=== PATIENT | male | born 1970 | race Caucasian/White ===

== ENCOUNTER 2017-07-14 20:04 | Emergency (ER) | payer OTHER ==
[2017-07-14] MEDS ORDERED: NA CHLORIDE 0.9% 1,000 ML ONE (20:57)
[2017-07-14] MEDS ORDERED: ONDANSETRON 4 MG/2 ML VIAL ONE (21:00)
[2017-07-14 21:11] LABS: Absolute Lymphocytes (CBC) 2.1 K/uL (0.7-4.9); Absolute Monocytes 0.8 K/uL (0.1-1.3); Absolute Neutrophil 9.6 K/uL (1.8-8.0); Basophils % 0.4 % (0-1.3); Eosinophils % 1.4 % (0-4.4); Hematocrit 41.1 % (39.6-49.0); Lymphocytes % 16.8 % (15.3-44.8); MCH 30.5 pg (27.0-35.0); MPV 8.2 fL (7.6-11.3); Monocytes % 6.3 % (3.3-12.3); Potassium 3.5 mEq/L (3.6-5.0); RBC Red Blood Cell Count 4.57 M/uL (4.33-5.43)
--- NOTE | 2017-07-14 22:47 | EDPHYS ---
Physician Documentation [facility] Name: Delmer Doan Age: 46 yrs Sex: Male : 1970 Arrival Date: 07/14/2017 Time: 20:06 Bed 13 Private MD: ED Physician Brijesh Taylor HPI: 07/14 20:38 This 46 yrs old Male presents to ER via Unassigned with complaints of snw diarrhea, nausea, lightheadedness. 20:38 The patient presents to the emergency department with nausea, diarrhea. Onset: The snw symptoms/episode began/occurred suddenly, today. Possible causes: hx of IBS, pt was at work and became nauseated, a little dizzy, + several episodes of diarrhea. Pt needed to sit and remained generally weak. Co-workers insisted he come to ED for eval. The symptoms are aggravated by nothing. Associated signs and symptoms: Pertinent positives: abdominal pain, diarrhea, nausea. Severity of symptoms: At their worst the symptoms were moderate. It is unknown whether or not the patient has had similar symptoms in the past. It is unknown whether or not the patient has recently seen a physician, Sees Dr. Rhodes. Historical: - Allergies: 20:45 No Known Allergies; ea - Home Meds: 20:45 Tylenol #3 Oral [Active]; Lovastatin Oral [Active]; Folic Acid Oral [Active]; ea - PMHx: 20:45 Hyperlipidemia; Arthritis; ea - Immunization history:: Adult Immunizations up to date. - Social history:: Smoking status: Patient uses tobacco products, smokes one-half pack cigarettes per day. ROS: 20:41 Eyes: Negative for injury, pain, redness, and discharge, ENT: Negative for injury, snw pain, and discharge, Neck: Negative for injury, pain, and swelling, Cardiovascular: Negative for chest pain, palpitations, and edema, Respiratory: Negative for shortness of breath, cough, wheezing, and pleuritic chest pain, Back: Negative for injury and pain, : Negative for injury, bleeding, discharge, and swelling, MS/Extremity: Negative for injury and deformity, Skin: Negative for injury, rash, and discoloration, Neuro: Negative for headache, weakness, numbness, tingling, and seizure. 20:41 Constitutional: Positive for body aches, fatigue, malaise, poor PO intake. 20:41 Abdomen/GI: Positive for abdominal pain, nausea, diarrhea. Exam: 20:41 Head/Face: Normocephalic, atraumatic. Eyes: Pupils equal round and reactive to light, snw extra-ocular motions intact. Lids and lashes normal. Conjunctiva and sclera are non-icteric and not injected. Cornea within normal limits. Periorbital areas with no swelling, redness, or edema. ENT: Nares patent. No nasal discharge, no septal abnormalities noted. Tympanic membranes are normal and external auditory canals are clear. Oropharynx with no redness, swelling, or masses, exudates, or evidence of obstruction, uvula midline. Mucous membranes moist. Neck: Trachea midline, no thyromegaly or masses palpated, and no cervical lymphadenopathy. Supple, full range of motion without nuchal rigidity, or vertebral point tenderness. No Meningismus. Chest/axilla: Normal chest wall appearance and motion. Nontender with no deformity. No lesions are appreciated. Cardiovascular: Regular rate and rhythm with a normal S1 and S2. No gallops, murmurs, or rubs. Normal PMI, no JVD. No pulse deficits. Respiratory: Lungs have equal breath sounds bilaterally, clear to auscultation and percussion. No rales, rhonchi or wheezes noted. No increased work of breathing, no retractions or nasal flaring. Back: No spinal tenderness. No costovertebral tenderness. Full range of motion. Skin: Warm, dry with normal turgor. Normal color with no rashes, no lesions, and no evidence of cellulitis. MS/ Extremity: Pulses equal, no cyanosis. Neurovascular intact. Full, normal range of motion. Neuro: Awake and alert, GCS 15, oriented to person, place, time, and situation. Cranial nerves II-XII grossly intact. Motor strength 5/5 in all extremities. Sensory grossly intact. Cerebellar exam normal. Normal gait. 20:41 Constitutional: The patient appears alert, anxious. 20:41 Abdomen/GI: Inspection: abdomen appears normal, Bowel sounds: hyperactive, Palpation: mild abdominal tenderness, in all quadrants. Vital Signs: 20:45 BP 126 / 89; Pulse 75; Resp 18; Temp 98(O); Pulse Ox 100% on R/A; Weight 106.59 kg; ea Height 6 ft. 2 in. (187.96 cm); Pain 0/10; 22:15 BP 122 / 76; Pulse 64; Resp 16; Pulse Ox 100% on R/A; jd3 22:30 Temp 98.2(O); ea 20:45 Body Mass Index 30.17 (106.59 kg, 187.96 cm) ea MDM: 20:18 Patient medically screened. snw 22:47 Data reviewed: vital signs, nurses notes. Data interpreted: Pulse oximetry: on room air snw is 100 %. Counseling: I had a detailed discussion with the patient and/or guardian regarding: the historical points, exam findings, and any diagnostic results supporting the discharge/admit diagnosis, lab results, the need for outpatient follow up, to return to the emergency department if symptoms worsen or persist or if there are any questions or concerns that arise at home. Special discussion: Based on the history and exam findings, there is no indication for further emergent testing or inpatient evaluation. I discussed with the patient/guardian the need to see the global technical writer for further evaluation of the symptoms. I discussed with the patient/guardian the need to see the primary care provider for further evaluation of the symptoms. 07/14 20:38 Order name: CBC with Diff; Complete Time: 21:20 snw 07/14 20:38 Order name: Chem 7; Complete Time: 21:14 snw Administered Medications: 20:45 Drug: NS 0.9% 1000 ml Route: IV; Rate: 1 bolus; Site: right antecubital; ea 22:35 Follow up: Response: No adverse reaction; IV Status: Completed infusion; IV Intake: ea 1000ml 20:45 Drug: Zofran 4 mg Route: IVP; Site: right antecubital; ea 22:35 Follow up: Response: No adverse reaction ea Disposition: 07/15 01:37 Co-signature as Attending Physician, Brijesh Taylor MD. pkl Disposition: 07/14/17 22:46 Discharged to Home. Impression: Volume depletion, unspecified, Diarrhea, unspecified. - Condition is Stable. - Discharge Instructions: Food Choices to Help Relieve Diarrhea, Adult, Dehydration, Adult, Diarrhea, Rehydration, Adult. - Prescriptions for Zofran 4 mg Oral Tablet - take 1 tablet by ORAL route every 6 hours As needed; 20 tablet. - Work release form, Medication Reconciliation Form, Thank You Letter, Antibiotic Education, Prescription Opioid Use form. - Follow up: Private Physician; When: 2 - 3 days; Reason: Recheck today's complaints, Continuance of care, Re-evaluation by your physician. Follow up: Emergency Department; When: As needed; Reason: Worsening of condition. Signatures: Dispatcher [employer] EDMS Brijesh Taylor MD MD pkl Therrien, Shelly, PREFORM PLATE MAKER-C PREFORM PLATE MAKER-Csnw Magui Nava, RN RN ea Corrections: (The following items were deleted from the chart) 07/14 22:59 22:46 07/14/2017 22:46 Discharged to Home. Impression: Volume depletion, unspecified; ea Diarrhea, unspecified. Condition is Stable. Forms are Medication Reconciliation Form, Thank You Letter, Antibiotic Education, Prescription Opioid Use. Follow up: Private Physician; When: 2 - 3 days; Reason: Recheck today's complaints, Continuance of care, Re-evaluation by your physician. Follow up: Emergency Department; When: As needed; Reason: Worsening of condition. snw
--- NOTE | 2017-07-14 22:47 | ER ---
Nurse's Notes [facility] Name: Delmer Doan Age: 46 yrs Sex: Male : 1970 Arrival Date: 07/14/2017 Time: 20:06 Bed 13 Private MD: Diagnosis: Volume depletion, unspecified;Diarrhea, unspecified Presentation: 07/14 20:15 Presenting complaint: EMS states: Pt reported he was working and started feeling spacey ea and dizzy. EMS noted blood pressure at 141/104. Transition of care: patient was not received from another setting of care. Onset of symptoms was July 14, 2017. Initial Sepsis Screen: Does the patient meet any 2 criteria? No. Patient's initial sepsis screen is negative. Does the patient have a suspected source of infection? No. Patient's initial sepsis screen is negative. Care prior to arrival: IV to left AC O2 at 2 L. 20:15 Method Of Arrival: EMS: [facility] ea 20:15 Acuity: ANITHA 3 ea Triage Assessment: 20:46 General: Appears in no apparent distress. Behavior is calm, cooperative, appropriate ea for age. Pain: Denies pain. EENT: No signs and/or symptoms were reported regarding the EENT system. Neuro: Level of Consciousness is awake, alert, obeys commands, Oriented to person, place, time, situation. Cardiovascular: Heart tones S1 S2 present Patient's skin is warm and dry. Historical: - Allergies: 20:45 No Known Allergies; ea - Home Meds: 20:45 Tylenol #3 Oral [Active]; Lovastatin Oral [Active]; Folic Acid Oral [Active]; ea - PMHx: 20:45 Hyperlipidemia; Arthritis; ea - Immunization history:: Adult Immunizations up to date. - Social history:: Smoking status: Patient uses tobacco products, smokes one-half pack cigarettes per day. Screenin:00 Abuse screen: Denies threats or abuse. Nutritional screening: No deficits noted. ea Tuberculosis screening: No symptoms or risk factors identified. Fall Risk None identified. Assessment: 21:21 Reassessment: Patient and/or family updated on plan of care and expected duration. Pain ea level reassessed. Patient is alert, oriented x 3, equal unlabored respirations, skin warm/dry/pink. 22:35 Reassessment: Patient and/or family updated on plan of care and expected duration. Pain ea level reassessed. Patient is alert, oriented x 3, equal unlabored respirations, skin warm/dry/pink. Patient states feeling better. Patient states symptoms have improved. 22:56 Reassessment: Patient and/or family updated on plan of care and expected duration. Pain ea level reassessed. Patient is alert, oriented x 3, equal unlabored respirations, skin warm/dry/pink. Discharge instructions given to patient, verbalized the understanding of instruction. Patient states feeling better. Patient states symptoms have improved. Vital Signs: 20:45 BP 126 / 89; Pulse 75; Resp 18; Temp 98(O); Pulse Ox 100% on R/A; Weight 106.59 kg; ea Height 6 ft. 2 in. (187.96 cm); Pain 0/10; 22:15 BP 122 / 76; Pulse 64; Resp 16; Pulse Ox 100% on R/A; jd3 22:30 Temp 98.2(O); ea 20:45 Body Mass Index 30.17 (106.59 kg, 187.96 cm) ea ED Course: 20:06 Patient arrived in ED. em1 20:10 Fiona Agarwal FNP-C [facility]. snw 20:11 Brijesh Taylor MD is Attending Physician. snw 20:36 Magui Nava, JAY JAY is Primary Nurse. ea 20:41 Triage completed. ea 20:45 Patient has correct armband on for positive identification. Bed in low position. Call ea light in reach. Side rails up X 1. 20:45 Arm band placed on right wrist. ea 22:57 No provider procedures requiring assistance completed. IV discontinued, intact, ea bleeding controlled, No redness/swelling at site. Pressure dressing applied. Administered Medications: 20:45 Drug: NS 0.9% 1000 ml Route: IV; Rate: 1 bolus; Site: right antecubital; ea 22:35 Follow up: Response: No adverse reaction; IV Status: Completed infusion; IV Intake: ea 1000ml 20:45 Drug: Zofran 4 mg Route: IVP; Site: right antecubital; ea 22:35 Follow up: Response: No adverse reaction ea Intake: 22:35 IV: 1000ml; Total: 1000ml. ea Outcome: 22:46 Discharge ordered by . snw 22:57 Discharged to home ambulatory, with family. ea 22:57 Condition: improved 22:57 Discharge instructions given to patient, Instructed on discharge instructions, follow up and referral plans. medication usage, Demonstrated understanding of instructions, follow-up care, medications, Prescriptions given X 1. 22:59 Patient left the ED. ea Signatures: Fiona Agarwal, STOCK HANGER-C STOCK HANGER-Csnw Jeff Ortega em1 Magui Nava RN RN ea Davies, Jonathon, RN RN jd3 Corrections: (The following items were deleted from the chart) 21:23 21:21 BP 126 / 89; Pulse 75bpm; Resp 18bpm; Pulse Ox 100% RA; Temp 98F Oral; 106.59 kg; ea Height 6 ft. 2 in.; BMI: 30.1; Pain 0/10; ea
== END 2017-07-14 22:59 | disposition home or self-care (01) ==
LOC: ER 20:04
DX: E86.9 Volume depletion, unspecified (principal); E78.5 Hyperlipidemia, unspecified; F17.210 Nicotine dependence, cigarettes, uncomplicated
CPT/HCPCS: 36415; 80048; 85025; 96361; 96374; 99283; J2405; J7030

== ENCOUNTER 2020-08-25 14:32 | Inpatient (IN) | payer OTHER ==
--- OUTSIDE RECORDS SUMMARY | 2020-08-25 14:35 | XMS REPORT | Continuity of Care Document ---
:1970 Author Organization [facility] t Address [address] [place] [address] [address] [place] [address] Care Team Providers Name Role Phone Carmelo FUNG Attending Clinician Eugene Buck DO Attending Clinician Doctor Unassigned, Name Attending Clinician Unavailable Shannen Carroll RN Attending Clinician Unavailable Pob1, Care Clinic Attending Clinician Unavailable Problems This patient has no known problems. Allergies, Adverse Reactions, Alerts This patient has no known allergies or adverse reactions. Medications This patient has no known medications. Procedures This patient has no known procedures. Encounters Start End Encounter Admission Attending Care Care Encounter Source Date/Time Date/Time Type Type Clinicians Facility Department ID 2020-08-22 2020-08-22 Saige Rhodes [facility]VAR[facility] [id number] 00:00:00 00:00:00 [facility] [id number] [place] [id number] Professio [phone] [place] [address] 2020-05-27 2020-05-27 Patient DANA Buck [id number] 00:00:00 00:00:00 Outreach [facility] [id number] Eugene [facility] [id number] PAVILLION [id number] [id number] 2020-03-26 2020-03-26 Saige Rhodes WVARIA [id number] 00:00:00 00:00:00 [facility] [id number] [place] [id number] Professio [phone] [place] [address] [address] 2020-03-02 2020-03-02 Refill Carmelo [facility] [id number] 00:00:00 00:00:00 [facility] [id number] [place] [id number] Professio [phone] [place] [address] [address] 2019-12-29 2019-12-29 Refill Carmelo [facility] [id number] 00:00:00 00:00:00 [facility] [id number] [place] [id number] Professio [phone] [place] [address] [address] 2019-12-05 2019-12-05 Refill Carmelo [facility] [id number] 00:00:00 00:00:00 [facility] [id number] [place] [id number] Professio [phone] [place] [address] [address] 2019-11-12 2019-11-12 Refill Doctor [facility] [id number] 00:00:00 00:00:00 Unassigned, Health [id number] [place] [id number] Professio [phone] [place] [address] [address] 2019-09-11 2019-09-11 Patient Carmelo [facility] [id number] 00:00:00 00:00:00 Secure Msg Deny Leonardo [id number] [place] [id number] Professio [phone] [address] 2019-09-05 2019-09-05 Patient Carmelo [facility] [id number] 00:00:00 00:00:00 Secure Msg Deny Leonardo [id number] [place] [id number] Professio [phone] [address] 2019-09-04 2019-09-04 Telephone [place] [id number] 00:00:00 00:00:00 enocPretty [id number] [facility] [id number] [id number] 2019-09-03 2019-09-03 Urgent Pob1, Acute [place] 1.2.840.114 [id number] 10:25:23 10:45:23 [facility] [id number] [place] [id number] Professio [phone] [place] [address] [address] 2019-08-24 2019-08-24 Refill Carmelo, [facility] 1.2.840.114 [id number] 00:00:00 00:00:00 [facility] [id number] [place] [id number] Professio [phone] [place] [address] [address] 2019-08-01 2019-08-01 Refill Carmelo [facility] [id number] 00:00:00 00:00:00 [facility] [id number] [place] [id number] Professio [phone] [place] [address] [address] 2019-08-01 2019-08-01 Telephone Carmelo [facility] [id number] 00:00:00 00:00:00 [facility] [id number] [place] [id number] Professio [phone] [place] [address] [address] 2019-07-29 2019-07-29 Refill Doctor [place] 1.2.840.114 [id number] 00:00:00 00:00:00 Unassigned, Health [id number] [place] [id number] Professio [phone] [place] [address] [address] 2019-07-09 2019-07-09 Telephone Carmelo [facility] [id number] 00:00:00 00:00:00 Deny Leonardo [id number] [place] [id number] Professio [phone] [address] 2019-06-30 2019-06-30 Patient Carmelo [facility] [id number] 00:00:00 00:00:00 [facility] [id number] [place] [id number] [place] [phone] [place] [address] Results This patient has no known results.
--- NOTE | 2020-08-25 15:17 | RAD REPORT ---
EXAM DESCRIPTION: RAD - Chest Single View - 08/25/2020 3:06 pm CLINICAL HISTORY: syncope Chest pain. COMPARISON: Chest Pa And Lat (2 Views) dated 07/12/2016 FINDINGS: Portable technique limits examination quality. Minimal interstitial pulmonary edema. The heart is quite enlarged. No displaced fractures. IMPRESSION: Mild CHF.
[2020-08-25] MEDS ORDERED: NA CHLORIDE 0.9% 1,000 ML ONE (15:35)
[2020-08-25] MEDS ORDERED: FAMOTIDINE 20 MG/2 ML VIAL IV ONE (15:35)
[2020-08-25] MEDS ORDERED: ONDANSETRON 4 MG/2 ML VIAL ONE (15:35)
[2020-08-25 15:54] LABS: Basophils % 0.2 % (0-1.3); Hematocrit 35.9 % (39.6-49.0); Lymphocytes % 5.9 % (15.3-44.8); MPV 8.1 fL (7.6-11.3); Protime INR 0.94
[2020-08-25 16:04] LABS: ALT/SGPT 25 U/L (12-78); AST/SGOT 13 U/L (15-37); Albumin 3.9 g/dL (3.4-5.0); Alkaline Phosphatase 109 U/L (45-117); BUN Blood Urea Nitrogen 16 mg/dL (7-18); Bicarbonate 26 mmol/L (21-32); Bilirubin Direct 0.1 mg/dL (0-0.2); Bilirubin Total 0.5 mg/dL (0.2-1.0); Glucose Level 88 mg/dL (74-106); Magnesium 2.2 mg/dL (1.8-2.4); NT PRO-BNP 36 pg/mL (<125); Potassium 3.5 mmol/L (3.5-5.1); Protein, Total 7.6 g/dL (6.4-8.2); Sodium Level 137 mmol/L (136-145); Troponin (Emerg Dept Use Only) < 0.02 ng/mL (0.0-0.045)
[2020-08-25 16:08] LABS: Creatine Phosphokinase 256 U/L (39-308); Lipase 197 U/L (73-393)
[2020-08-25 16:33] LABS: Blood Morphology Comment NOT SEEN (NOT SEEN); Platelet Estimate INCR; White Blood Cell Scan OK (OK)
--- NOTE | 2020-08-25 17:16 | RAD REPORT ---
EXAM DESCRIPTION: CT - Chest For Pe Angio - 08/25/2020 5:04 pm CLINICAL HISTORY: Chest pain. syncope COMPARISON: No comparisons TECHNIQUE: CT angiogram of the pulmonary arteries was performed with MIP. All CT scans are performed using dose optimization technique as appropriate and may include automated exposure control or mA/KV adjustment according to patient size. FINDINGS: Filling defect noted in the left posterior segmental and subsegmental pulmonary arterial b ranches may represent small pulmonary emboli. No acute aortic finding demonstrated. Moderate airspace opacity is seen in the posterior left lung base with a small similar infiltrate in the medial right lung base. This is most compatible with pneumonia. No significant pericardial or pleural fluid. No concerning bony finding. Large hiatal hernia noted. IMPRESSION: Left basilar small segmental and subsegmental pulmonary arterial thromboembolism is susp ected. Moderate sized area of lung infiltrate greatest in the left lung base most compatible with pneumonia.
--- NOTE | 2020-08-25 17:19 | RAD REPORT ---
EXAM DESCRIPTION: CTAbdomen Pelvis W Contrast - 08/25/2020 5:04 pm CLINICAL HISTORY: Abdominal pain. Abd pain;Nausea / vomiting COMPARISON: Abdomen Pelvis W Contrast dated 07/12/2016 TECHNIQUE: Biphasic CT imaging of the abdomen and pelvis was performed with 100 ml non-ionic IV cont rast. All CT scans are performed using dose optimization technique as appropriate and may include automated exposure control or mA/KV adjustment according to patient size. FINDINGS: Airspace opacities in both lung bases, greater on the left, likely representing pneumonia. Large hiatal hernia noted. The liver, spleen, pancreas, adrenal glands and kidneys are within normal limits. No bowel obstruction, free air, free fluid or abscess. The appendix is normal. No evidence of signi ficant lymphadenopathy. No suspicious bony findings. IMPRESSION: No acute intra-abdominal or pelvic finding. Large hiatal hernia. Airspace opacities in both lung bases, greater on the left, most compatible with pneumonia.
[2020-08-25] MEDS ORDERED: FUROSEMIDE 20 MG/ 2ML VIAL ONE (17:42)
--- NOTE | 2020-08-25 17:49 | EDPHYS ---
Physician Documentation [facility] Name: Delmer Doan Age: 49 yrs Sex: Male : 1970 Arrival Date: 08/25/2020 Time: 14:35 Bed 8 Private MD: ED Physician Chaz Willis HPI: 08/25 14:50 This 49 yrs old Male presents to ER via EMS with complaints of Syncope. cp 14:50 The patient has experienced syncope, lost consciousness. Onset: The symptoms/episode cp began/occurred just prior to arrival. Duration: This was a single episode, that lasted an unknown period of time. Context: occurred at work, occurred while the patient was sitting, Just prior to the episode the patient experienced vomiting. Associated injury: The patient did not suffer any apparent associated injury. Associated signs and symptoms: Pertinent positives: nausea, vomiting, Pertinent negatives: chest pain, headache, palpitations, weakness. Current symptoms: nausea, abdominal pain, cough. Patient reports nausea and vomiting started last night. 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 Historical: - Allergies: 14:38 No Known Allergies; ld1 - PMHx: 14:38 Arthritis; Hyperlipidemia; Hypertension; ld1 - PSHx: 14:38 None; ld1 - Immunization history:: Adult Immunizations up to date. - Social history:: Smoking status: Patient reports the use of cigarette tobacco products, smokes one pack cigarettes per day. ROS: 14:52 Constitutional: Positive for poor PO intake, Negative for body aches, chills, fever. cp 14:52 Eyes: Negative for injury, pain, redness, and discharge. cp 14:52 Cardiovascular: Negative for chest pain, edema, palpitations. 14:52 Respiratory: Positive for cough, with no reported sputum, shortness of breath, Negative for wheezing. 14:52 Abdomen/GI: Positive for abdominal pain, nausea and vomiting, Negative for constipation, hematemesis, black/tarry stool, rectal bleeding. 14:52 Back: Negative for radiated pain. 14:52 : Negative for urinary symptoms. 14:52 Neuro: Positive for syncope, Negative for altered mental status, dizziness, headache, weakness. 14:52 All other systems are negative. Exam: 14:52 ECG was reviewed by the Attending Physician. cp 14:55 Constitutional: The patient appears in no acute distress, alert, awake, cp non-diaphoretic, non-toxic, well developed, well nourished. 14:55 Head/Face: Normocephalic, atraumatic. cp 14:55 Eyes: Periorbital structures: appear normal, Pupils: equal, round, and reactive to light and accomodation, Extraocular movements: intact throughout, Conjunctiva: normal, no exudate, no injection, Sclera: no appreciated abnormality, Lids and lashes: appear normal, bilaterally. 14:55 ENT: External ear(s): are unremarkable, Nose: is normal, Mouth: Lips: moist, Oral mucosa: moist, Posterior pharynx: Airway: no evidence of obstruction, patent. 14:55 Neck: ROM/movement: is normal, is supple, without pain, no range of motions limitations. 14:55 Chest/axilla: Inspection: normal, Palpation: is normal, no crepitus, no tenderness. 14:55 Cardiovascular: Rate: normal, Rhythm: regular, Edema: is not appreciated, JVD: is not appreciated. 14:55 Respiratory: the patient does not display signs of respiratory distress, Respirations: normal, no use of accessory muscles, no retractions, labored breathing, is not present, Breath sounds: are clear throughout, no decreased breath sounds, no stridor, no wheezing. 14:55 Abdomen/GI: Inspection: abdomen appears normal, Bowel sounds: active, all quadrants, Palpation: soft, in all quadrants, moderate abdominal tenderness, in the right upper quadrant and left upper quadrant, rebound tenderness, is not appreciated. 14:55 Back: CVA tenderness, is absent. 14:55 Skin: no rash present. 14:55 Neuro: Orientation: to person, place \\T\\ time. Mentation: is normal, Cerebellar function: is grossly normal, Motor: moves all fours, strength is normal, Sensation: is normal. Vital Signs: 14:36 BP 126 / 77; Pulse 90; Resp 18; Temp 98.5(O); Pulse Ox 100% on R/A; Weight 90.72 kg; ld1 Height 6 ft. 0 in. (182.88 cm); Pain 0/10; 15:00 BP 121 / 62; Pulse 95; Resp 19; Pulse Ox 96% ; aa5 19:43 BP 107 / 59; Pulse 90; Resp 18; Pulse Ox 97% ; rr5 14:36 Body Mass Index 27.12 (90.72 kg, 182.88 cm) ld1 MDM: 14:47 Patient medically screened. cp 15:00 Differential Diagnosis: cardiac arrhythmia, drug effect, GI bleed, seizure, sepsis, cp vasovagal episode. 17:35 Data reviewed: vital signs, nurses notes, lab test result(s), EKG, radiologic studies, cp CT scan, plain films, and as a result, I will admit patient. 17:35 Test interpretation: by ED physician or midlevel provider: ECG, plain radiologic cp studies. Response to treatment: the patient's symptoms have markedly improved after treatment. Physician consultation: Marino Orlando was contacted at 17:35, regarding admission, to the telemetry unit. patient's condition. 08/25 14:44 Order name: Basic Metabolic Panel; Complete Time: 16:10 08/25 16:10 Interpretation: Normal except: CRE 1.40; GFR 54. 08/25 14:44 Order name: CBC with Diff; Complete Time: 17:08 08/25 16:11 Interpretation: Normal except: WBC 16.90; HGB 11.5; HCT 35.9; MCV 74.8; MCH 23.9; MCHC cp 31.9; PLT 437; RDW 16.5; TERRY% 92.1; LYM% 5.9; MN% 1.7; NEUT A 15.5. 08/25 14:44 Order name: LFT's; Complete Time: 16:10 08/25 14:44 Order name: Magnesium; Complete Time: 16:10 08/25 14:44 Order name: NT PRO-BNP; Complete Time: 16:10 08/25 16:11 Interpretation: NT PRO-BNP 36; Reviewed. 08/25 14:44 Order name: PT-INR; Complete Time: 16:10 08/25 14:44 Order name: Troponin (emerg Dept Use Only); Complete Time: 16:10 08/25 14:52 Order name: Glucose, Ancillary Testing; Complete Time: 15:31 EDMS 08/25 14:59 Order name: CK; Complete Time: 16:10 08/25 14:59 Order name: Lipase; Complete Time: 16:10 06/16 15:00 Order name: COVID-19 : Document "Date of Symptom Onset" if Symptomatic. 08/25 16:33 Order name: CBC Smear Scan; Complete Time: 17:08 EDAL 08/25 16:33 Order name: SARS-COV-2 RT PCR; Complete Time: 17:08 EDAL 08/25 14:44 Order name: XRAY Chest (1 view); Complete Time: 15:31 08/25 17:08 Interpretation: Report reviewed. 08/25 14:44 Order name: EKG; Complete Time: 14:45 08/25 14:44 Order name: Cardiac monitoring; Complete Time: 14:45 08/25 14:44 Order name: EKG - Nurse/Tech; Complete Time: 14:45 08/25 14:44 Order name: IV Saline Lock; Complete Time: 15:33 08/25 14:44 Order name: Labs collected and sent; Complete Time: 15:33 08/25 16:29 Order name: CT Chest For PE Angio; Complete Time: 17:23 08/25 17:24 Interpretation: Report reviewed. 08/25 16:29 Order name: CT Abd/Pelvis - IV Contrast Only; Complete Time: 17:23 08/25 18:28 Order name: Lactate EDAL 08/25 14:44 Order name: O2 Per Protocol; Complete Time: 14:45 08/25 14:44 Order name: O2 Sat Monitoring; Complete Time: 14:45 cp EC:52 Rate is 90 beats/min. Rhythm is regular. OK interval is prolonged at 212 msec. QRS cp interval is normal. QT interval is normal. T waves are Inverted in lead aVR. Interpreted by me. Reviewed by me. Administered Medications: Discontinued: NS 0.9% 1000 ml IV at 1 bolus Per protocol; 1000 mL bolus 15:30 Drug: NS 0.9% 1000 ml Route: IV; Rate: 1 bolus; Site: left antecubital; aa5 16:00 Follow up: Response: No adverse reaction; IV Status: Completed infusion ld1 15:30 Drug: Zofran (Ondansetron) 4 mg Route: IVP; Site: left antecubital; aa5 16:00 Follow up: Response: No adverse reaction ld1 15:30 Drug: Pepcid (famotidine) 20 mg Route: IVP; Site: left antecubital; aa5 16:00 Follow up: Response: No adverse reaction ld1 17:33 Drug: Lasix (furosemide) 20 mg Route: IVP; Site: left antecubital; ld1 17:46 Drug: Zithromax (azithromycin) 500 mg Route: IVPB; Infused Over: 1 hrs; Site: left ld1 forearm; 19:30 Follow up: Response: No adverse reaction; IV Status: Completed infusion; IV Intake: rr5 250ml 17:46 Drug: Lovenox (enoxaparin) 1 mg/kg Route: Sub-Q; Site: abdomen; ld1 17:47 Drug: Rocephin (cefTRIAXone) 1 grams Route: IV; Rate: calculated rate; Site: left ld1 forearm; Point of Care Testing: Blood Glucose: 14:38 Blood Glucose: 85 mg/dL; ld1 Ranges: Critical Glucose Levels:Adult <50 mg/dl or >400 mg/dl <40 mg/dl or >180 mg/dl Disposition: 08/26 07:28 Co-signature as Attending Physician, Chaz Willis MD I agree with the assessment and kdr plan of care. Disposition: 08/25/20 17:48 Hospitalization ordered by Marino Orlando for Inpatient Admission. Preliminary diagnosis are Pneumonia due to other specified infectious organisms, Pulmonary embolism. - Bed requested for Telemetry/MedSurg (Inpatient). - Status is Inpatient Admission. ea - Condition is Stable. - Problem is new. - Symptoms have improved. Signatures: Dispatcher [employer] EDAL Chaz Willis MD MD kdr Calderon, Audri RN RN aa5 Jean-Claude Sommers PA PA cp Magui Nava RN RN ea Botello, Elizabeth eb Dibbern, Lauren, RN RN ld1 Kunal Sullivan RN rr5 Corrections: (The following items were deleted from the chart) 08/25 15:40 15:00 CORONAVIRUS ordered. EDAL EDAL 18:43 17:48 Hospitalization Ordered by Marino Orlando for Inpatient Admission. Preliminary eb diagnosis is Pneumonia due to other specified infectious organisms; Pulmonary embolism. Bed requested for Telemetry/MedSurg (Inpatient). Status is Inpatient Admission. Condition is Stable. Problem is new. Symptoms have improved. cp 19:48 18:43 08/25/2020 17:48 Hospitalization Ordered by Marino Orlando for Inpatient ea Admission. Preliminary diagnosis is Pneumonia due to other specified infectious organisms; Pulmonary embolism. Bed requested for Telemetry/MedSurg (Inpatient). Status is Inpatient Admission. Condition is Stable. Problem is new. Symptoms have improved. eb
--- NOTE | 2020-08-25 17:49 | ER ---
Nurse's Notes [facility] Name: Delmer Doan Age: 49 yrs Sex: Male : 1970 Arrival Date: 08/25/2020 Time: 14:35 Bed 8 Private MD: Diagnosis: Pneumonia due to other specified infectious organisms;Pulmonary embolism Presentation: 08/25 14:36 Chief complaint: EMS states: toned out for syncope in vehicle. Pt went to lunch and ld1 woke up after a few minutes sitting in car with vomit in lap. Coronavirus screen: At this time, the client does not indicate any symptoms associated with coronavirus-19. Ebola Screen: No symptoms or risks identified at this time. Initial Sepsis Screen: Does the patient meet any 2 criteria? No. Patient's initial sepsis screen is negative. Does the patient have a suspected source of infection? No. Patient's initial sepsis screen is negative. Risk Assessment: Do you want to hurt yourself or someone else? Patient reports no desire to harm self or others. Onset of symptoms was August 25, 2020. 14:36 Method Of Arrival: EMS: [facility] ld1 14:36 Acuity: ANITHA 3 ld1 Triage Assessment: 14:38 General: Appears in no apparent distress. uncomfortable, Behavior is calm, cooperative, ld1 appropriate for age. Pain: Denies pain. EENT: No signs and/or symptoms were reported regarding the EENT system. Neuro: Level of Consciousness is awake, alert, obeys commands, Oriented to person, place, time, situation, Appropriate for age. Neuro: Reports a syncopal episode. Cardiovascular: Capillary refill < 3 seconds Patient's skin is warm and dry. Respiratory: Airway is patent Respiratory effort is even, unlabored, Respiratory pattern is regular, symmetrical. GI: Abdomen is round non-distended, Reports nausea, vomiting. : No signs and/or symptoms were reported regarding the genitourinary system. Derm: No signs and/or symptoms reported regarding the dermatologic system. Musculoskeletal: No signs and/or symptoms reported regarding the musculoskeletal system. Historical: - Allergies: 14:38 No Known Allergies; ld1 - PMHx: 14:38 Arthritis; Hyperlipidemia; Hypertension; ld1 - PSHx: 14:38 None; ld1 - Immunization history:: Adult Immunizations up to date. - Social history:: Smoking status: Patient reports the use of cigarette tobacco products, smokes one pack cigarettes per day. Screenin:43 Abuse screen: Denies threats or abuse. Denies injuries from another. Nutritional ld1 screening: No deficits noted. Tuberculosis screening: No symptoms or risk factors identified. Fall Risk None identified. Assessment: 14:43 Reassessment: See triage assessment. Neuro: Level of Consciousness is awake, alert, ld1 obeys commands, Oriented to person, place, time, situation. Cardiovascular: Rhythm is regular. 19:44 Reassessment: Patient appears in no apparent distress at this time. Patient is alert, rr5 oriented x 3, equal unlabored respirations, skin warm/dry/pink. for transfer to room 207 awake alert, patient wants to leave at first explained the process of admission and the procedure that needs to be done, offer help to make him comfortable. patient decided to stay. Vital Signs: 14:36 BP 126 / 77; Pulse 90; Resp 18; Temp 98.5(O); Pulse Ox 100% on R/A; Weight 90.72 kg; ld1 Height 6 ft. 0 in. (182.88 cm); Pain 0/10; 15:00 BP 121 / 62; Pulse 95; Resp 19; Pulse Ox 96% ; aa5 19:43 BP 107 / 59; Pulse 90; Resp 18; Pulse Ox 97% ; rr5 14:36 Body Mass Index 27.12 (90.72 kg, 182.88 cm) ld1 ED Course: 14:35 Patient arrived in ED. ld1 14:35 Isa Roland, RN is Primary Nurse. ld1 14:37 Triage completed. ld1 14:38 Arm band placed on right wrist. ld1 14:43 Patient has correct armband on for positive identification. Bed in low position. Call ld1 light in reach. Side rails up X2. ekg monitor on. Pulse ox on. NIBP on. Door closed. Noise minimized. Warm blanket given. 14:43 No provider procedures requiring assistance completed. ld1 14:44 Jean-Claude Sommers PA is PHCP. cp 14:44 Chaz Willis MD is Attending Physician. cp 15:06 XRAY Chest (1 view) In Process Unspecified. EDMS 15:30 Inserted saline lock: 20 gauge in left antecubital area, using aseptic technique. Blood aa5 collected. 15:33 COVID-19 : Document "Date of Symptom Onset" if Symptomatic. Sent. aa5 17:04 CT Chest For PE Angio In Process Unspecified. EDMS 17:04 CT Abd/Pelvis - IV Contrast Only In Process Unspecified. EDMS 17:48 Marino Orlando is Hospitalizing Provider. 19:43 Patient admitted, IV remains in place. intact, No redness/swelling at site. rr5 Administered Medications: Discontinued: NS 0.9% 1000 ml IV at 1 bolus Per protocol; 1000 mL bolus 15:30 Drug: NS 0.9% 1000 ml Route: IV; Rate: 1 bolus; Site: left antecubital; aa5 16:00 Follow up: Response: No adverse reaction; IV Status: Completed infusion ld1 15:30 Drug: Zofran (Ondansetron) 4 mg Route: IVP; Site: left antecubital; aa5 16:00 Follow up: Response: No adverse reaction ld1 15:30 Drug: Pepcid (famotidine) 20 mg Route: IVP; Site: left antecubital; aa5 16:00 Follow up: Response: No adverse reaction ld1 17:33 Drug: Lasix (furosemide) 20 mg Route: IVP; Site: left antecubital; ld1 17:46 Drug: Zithromax (azithromycin) 500 mg Route: IVPB; Infused Over: 1 hrs; Site: left ld1 forearm; 19:30 Follow up: Response: No adverse reaction; IV Status: Completed infusion; IV Intake: rr5 250ml 17:46 Drug: Lovenox (enoxaparin) 1 mg/kg Route: Sub-Q; Site: abdomen; ld1 17:47 Drug: Rocephin (cefTRIAXone) 1 grams Route: IV; Rate: calculated rate; Site: left ld1 forearm; Point of Care Testing: Blood Glucose: 14:38 Blood Glucose: 85 mg/dL; ld1 Ranges: Intake: 19:30 IV: 250ml; Total: 250ml. rr5 Outcome: 17:48 Decision to Hospitalize by Provider. cp 19:43 Admitted to Med/surg accompanied by nurse, via wheelchair, room 207, with chart, Report rr5 called to STEVE :43 Condition: stable 19:43 Instructed on the need for admit. 19:48 Patient left the ED. ea Signatures: Dispatcher [employer] EDMarisol Luther, RN RN aa5 Jean-Claude Sommers PA PA cp Antunez, Elena RN RN ea Kunal Sullivan RN RN rr5 Isa Roland RN RN ld1
[2020-08-25] MEDS ORDERED: ENOXAPARIN 100 MG/ML SYR SQ ONE (17:57)
[2020-08-25] MEDS ORDERED: NA CHLORIDE 0.9% 250 ML ONE (17:57)
[2020-08-25] MEDS ORDERED: AZITHROMYCIN 500 MG INJ IVPB ONE (17:57)
[2020-08-25] MEDS ORDERED: CEFTRIAXONE/SWI 1gm 1 GM/10 ML SYR ONE (17:58)
--- NOTE | 2020-08-25 18:19 | P.HP ---
Certification for Inpatient Patient admitted to: Inpatient With expected LOS: >2 Midnights Practitioner: I am a practitioner with admitting privileges, knowledge of patient current condition, hospital course, and medical plan of care. Services: Services provided to patient in accordance with Admission requirements found in Title 42 Section 412.3 of the Code of Federal Regulations Patient History Date of Service: 08/25/20 Reason for admission: Pneumonia History of Present Illness: 49-year-old gentleman with a history of psoriatic arthritis on Xeljanz presented to the emergency department due to the complaint of nausea, vomiting, diarrhea and malaise of 3 days duration. Patient denied any shortness of breath or chest pain. He also denied any fever. He reported easy fatigability. Workup done in the emergency department with CTA thorax demonstrated left-sided pulmonary embolism and bilateral pneumonia. Abdominal CT demonstrated large hiatal hernia. Patient is slightly tachycardic in the ED. He has leukocytosis but no fever. Patient meets criteria for SIRS. BMP cultures show slightly elevated creatinine. Chest x-ray demonstrated cardiomegaly. Patient given full-dose Lovenox for pulmonary emboli and started on IV Rocephin and Zithromax for pneumonia. He is admitted for further management. Allergies No Known Allergies Allergy (Unverified 07/14/17 23:02) - Past Medical/Surgical History -: Psoriatic arthritis -: GERD -: Hiatal hernia - Family History Brother -: Diabetes - Social History Smoking Status: Current every day smoker Alcohol use: No CD- Drugs: No Place of Residence: Home Review of Systems Other: Patient denies any abdominal pain, he denies any headache, he denies any leg swelling. Except as documented, all other systems reviewed and negative. Physical Examination - Physical Exam General: Alert, In no apparent distress, Oriented x3 HEENT: Atraumatic, PERRLA, Mucous membr. moist/pink, EOMI, Sclerae nonicteric Neck: Supple, JVD not distended Respiratory: Normal air movement, Crackles/rales (Bibasilar crackles) Cardiovascular: No edema, Normal S1 S2, Other (Regular rhythm, tachycardia.) Gastrointestinal: Normal bowel sounds, Soft and benign, Non-distended, No tenderness Musculoskeletal: No swelling, No tenderness Integumentary: No rashes, No erythema Neurological: Normal speech, Normal strength at 5/5 x4 extr, Cranial nerves 3-12 intact Lymphatics: No axilla or inguinal lymphadenopathy - Studies Laboratory Data (last 24 hrs) 08/25/20 15:30: Lipase 197 08/25/20 15:30: PT 10.8, INR 0.94 08/25/20 15:30: WBC 16.90 H, Hgb 11.5 L, Hct 35.9 L, Plt Count 437 H 08/25/20 15:30: Sodium 137, Potassium 3.5, BUN 16, Creatinine 1.40 H, Glucose 88, Magnesium 2.2, Total Bilirubin 0.5, AST 13 L, ALT 25, Alkaline Phosphatase 109 Assessment and Plan - Problems (Diagnosis) (1) Acute pulmonary embolism Current Visit: Yes Status: Acute (2) Community acquired pneumonia Current Visit: Yes Status: Acute (3) Psoriatic arthritis Current Visit: Yes Status: Acute (4) Sepsis Current Visit: Yes Status: Acute (5) Cardiomegaly Current Visit: Yes Status: Acute (6) GERD (gastroesophageal reflux disease) Current Visit: Yes Status: Acute - Plan Admit patient to the medical floor. Obtain blood cultures. Will treat pneumonia with IV Rocephin and Zithromax. Full-dose Lovenox for pulmonary embolus. Will transition to oral Eliquis within a day or 2. Obtain echocardiogram Check venous Doppler of lower extremities to rule out DVT. Supportive measures-Sharon p.r.n. for pain, Tylenol p.r.n. for fever. Monitor CBC and blood chemistry. PPI for GERD. - Advance Directives Does patient have a Living Will: No Does patient have a Durable POA for Healthcare: No
[2020-08-25] MEDS ORDERED: ACETAMINOPHEN 500 MG TAB PO PRN (19:59)
[2020-08-25] MEDS ORDERED: ONDANSETRON 4 MG/2 ML VIAL IV PRN (19:59)
[2020-08-25] MEDS: PREGABALIN 50 MG CAP PO SCH (20:47)
[2020-08-25] MEDS: ATORVASTATIN 40 MG TAB PO SCH (20:47)
--- NOTE | 2020-08-25 21:33 | P.INFCA ---
Sepsis Focused Assessment - Focused Assessment Complete? Sepsis Focused Assessment Completed?: Yes - Sepsis Screen Result Severe Sepsis: Negative Septic Shock: Negative - Evaluation Current stage of sepsis: Ruled out Reason for ruling out sepsis: criteria not met - Vital Signs Reviewed: Yes Temperature: 98.5 F Heart rate: 90 Blood Pressure: 107/59 Respiratory Rate: 18 O2 Sat by Pulse Oximetry: 97 - Examination Date exam was performed: 08/25/20 Time exam was performed: 21:30 Heart: Regular rate/rhythm, S1, S2 Lungs: Rhonchi Peripheral pulses: 3+ Normal Peripheral pulse location: Radial Capillary refill: <2 Seconds Skin examination: Normal turgor
[2020-08-26 01:03] VITALS: BMI 31.4
[2020-08-26] MEDS: PANTOPRAZOLE 40MG TABLET PO SCH (05:42)
[2020-08-26 05:59] LABS: Absolute Lymphocytes (CBC) 1.8 K/uL (0.7-4.9); Basophils % 0.5 % (0-1.3); Hematocrit 30.9 % (39.6-49.0); Lymphocytes % 8.5 % (15.3-44.8); MPV 7.9 fL (7.6-11.3)
[2020-08-26 06:21] LABS: Magnesium 2.3 mg/dL (1.8-2.4); Phosphorus 1.8 mg/dL (2.5-4.9); Potassium 3.3 mmol/L (3.5-5.1); Thyroid Stimulating Hormone 0.472 uIU/mL (0.360-3.740)
[2020-08-26] MEDS: HYDROCODONE/APAP 5/325 MG TAB PO PRN ×2 (06:27→14:28)
[2020-08-26 07:07] LABS: Blood Morphology Comment NOTED (NOT SEEN); Platelet Estimate ADEQ
[2020-08-26 07:08] LABS: Stomatocytes 1+
--- NOTE | 2020-08-26 08:19 | EKG ---
Test Date: 2020-08-25 Test Time: 14:44:26 Taffy Puller: ANDRES MEASUREMENT RESULTS: Intervals: Rate: 90 NM: 212 QRSD: 88 QT: 340 QTc: 415 [place]: P: 40 NM: 212 QRS: 26 T: 29 INTERPRETIVE STATEMENTS: Sinus rhythm with 1st degree AV block Nonspecific T wave abnormality Abnormal ECG No previous ECG available for comparison Electronically Signed On 08-26-20 08:18:08 CDT by Darin Vazquez
[2020-08-26] MEDS ORDERED: POTASSIUM CL SA 10 MEQ TAB PO ONE ×2 (09:00→22:45)
[2020-08-26] MEDS ORDERED: LOSARTAN POTASSIUM 50 MG TABLET PO SCH (09:00)
[2020-08-26] MEDS: ENOXAPARIN 80 MG/0.8 ML SQ SCH ×2 (09:00→21:00)
[2020-08-26] MEDS ORDERED: CEFTRIAXONE 1 GM/NS 50 ML 1 GM/50 ML BAG IV SCH (09:00)
[2020-08-26] MEDS: CEFTRIAXONE/SWI 1gm 1 GM/10 ML SYR IV SCH ×2 (10:05→21:06)
[2020-08-26] MEDS: PREGABALIN 50 MG CAP PO SCH ×2 (10:07→21:05)
[2020-08-26] MEDS: POTASS/SODIUM PHOSPHATE 1 PKT POWD.PACK PO SCH ×3 (10:07→12:34)
[2020-08-26] MEDS: DULOXETINE 30 MG CAP PO SCH (10:07)
[2020-08-26 10:41] LABS: Uric Acid 7.5 mg/dL (3.5-7.2)
--- NOTE | 2020-08-26 12:25 | RAD REPORT ---
EXAM DESCRIPTION: US - Extrem Venous W Compress Nils - 08/26/2020 12:14 pm CLINICAL HISTORY: PE. Rule-out DVT. COMPARISON: None. TECHNIQUE: Real-time sonographic evaluation of the bilateral lower extremity common femoral, superfi cial femoral, popliteal and posterior tibial veins was performed. FINDINGS: Normal compressibility, flow augmentation, phasic flow and spontaneous flow are identified in the left and right lower extremity common femoral, superficial femoral, popliteal and posterior t ibial veins. No intraluminal filling defects seen. IMPRESSION: No DVT in either lower extremity.
--- NOTE | 2020-08-26 12:26 | P.PN ---
Subjective Date of Service: 08/26/20 Chief Complaint: Pneumonia Patient states he feels much better. He does report cough worse with lying flat and has to prop up in bed. I suspect patient has orthopnea. Leukocytosis worse today. No fever. Physical Examination - Vital Signs Temperature: 98.0 F Blood Pressure: 117/64 Pulse: 90 Respirations: 17 Pulse Ox (%): 98 - Physical Exam General: Alert, In no apparent distress, Oriented x3 HEENT: Mucous membr. moist/pink Neck: Supple, JVD not distended Respiratory: Normal air movement, Crackles/rales (Bibasilar) Cardiovascular: No edema, Regular rate/rhythm, Normal S1 S2 Capillary refill: <2 Seconds Gastrointestinal: Normal bowel sounds, Soft and benign, Non-distended, No tenderness Musculoskeletal: No swelling, No tenderness Integumentary: No rashes, No erythema Neurological: Normal speech, Normal strength at 5/5 x4 extr - Studies Laboratory Data (last 24 hrs) 08/25/20 15:30: Lipase 197 08/25/20 15:30: PT 10.8, INR 0.94 08/25/20 15:30: WBC 16.90 H, Hgb 11.5 L, Hct 35.9 L, Plt Count 437 H 08/25/20 15:30: Sodium 137, Potassium 3.5, BUN 16, Creatinine 1.40 H, Glucose 88, Magnesium 2.2, Total Bilirubin 0.5, AST 13 L, ALT 25, Alkaline Phosphatase 109 Assessment And Plan - Current Problems (Diagnosis) (1) Acute pulmonary embolism Current Visit: Yes Status: Acute (2) Community acquired pneumonia Current Visit: Yes Status: Acute (3) Psoriatic arthritis Current Visit: Yes Status: Acute (4) Sepsis Current Visit: Yes Status: Acute (5) Cardiomegaly Current Visit: Yes Status: Acute (6) GERD (gastroesophageal reflux disease) Current Visit: Yes Status: Acute - Plan Continue IV Rocephin and Zithromax. Follow blood cultures Full-dose Lovenox for pulmonary embolus. Will transition to oral Eliquis tomorrow. Echocardiogram is pending. Venous Doppler of lower extremities result is pending Supportive measures-[place] p.r.n. for pain, Tylenol p.r.n. for fever. Monitor CBC and blood chemistry. PPI for GERD. Trial of IV Lasix for vascular congestion.
--- NOTE | 2020-08-26 12:29 | CON ---
Date of Consultation: 08/26/2020 Reason For Consultation: Elevated BUN and creatinine. History Of Present Illness: This is a pleasant 49-year-old gentleman with significant past medical h istory of rheumatoid arthritis/psoriatic arthritis, follows up with Rheumatology at [place], hyper tension, hyperlipidemia, the patient came to the hospital complaining from nausea and vomiting with d iarrhea and malaise for the last few days. Because of the shortness of breath, the patient undergone CT with contrast to rule out PE, found hiatal hernia and PE. Upon arrival to the hospital, creatini ne was 1.4, today is 1.3. GFR was 54, currently 57. Reviewing the record for the patient back in 2016, creatinine is 1.2 with GFR of 65. Again, the patient being on Xeljanz and received contrast yesterday. The patient denied any nonsteroidal intake. Also, primary workup showed elevation in ___ and cardiomegaly. Past Medical History: Includes; 1.Psoriatic arthritis. 2.GERD. 3.Rheumatoid arthritis. 4.Hiatal hernia. 5.PE. Family History: Positive for diabetes. Social History: Active smoker. Denied alcohol. Denied drugs abuse. 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 Review of Systems: Head and Neck: No red eye. No ear pain. GI: Has diarrhea. Has malaise. Has nausea and vomiting. : No polyuria. No dysuria. No hematuria. Area Representative: Not applicable. Respiratory: Has shortness of breath. Cardiovascular: Has orthopnea, 2 pillows. Musculoskeletal: Has joint pain. Endocrine: No polydipsia. Skin: No rash. Neuro: No weakness. No headache. Physical Examination: Vital Signs: When I saw the patient; blood pressure of 108/64, pulse of 79, afebrile. Reviewing the record for the patient, no hypotension. Chest: Crackles bilateral base. Heart: S1, S2. Systolic murmur. Abdomen: Soft, nontender. Extremity: No edema. Neuro: Alert, oriented. No focality. No tremor. Laboratory Data: Yesterday upon admission; WBC 16.9, H and H 11.5/35.9. Sodium 137, creatinine 1.4, GFR of 54. Today lab data; WBC 21.7, H and H 9.9/30.9, platelets 350. Sodium 137, potassium 3.5, b icarb 26, BUN 16, creatinine 1.3, GFR of 57, calcium 8.3, uric acid 7.5, phosphorus 1.8, magnesium 2. 3. TSH 0.4. CT with contrast positive for PE, cardiomegaly, possible pneumonia. CT abdomen; no acu te abdomen, no mention for hydronephrosis, kidney within normal limit. Current Medications: The patient on include; 1.Azithromycin. 2.Ceftriaxone. 3.Losartan 25. 4.Lyrica. 5.Pantoprazole. Assessment And Plan: 1.Acute kidney injury, obstructive uropathy has been ruled out. Our differential diagnosis is;. a.Secondary to Xeljanz causing elevation in creatinine without real acute kidney injury. b.Contrast-induced nephropathy. c.Questionable of cardiorenal, looked to me currently normal volume. I am going to go ahead and do renal ultrasound to evaluate the echogenicity of the kidney. I am going to avoid giving any diuresis the next 24 hours. The patient looked to me euvolemic. The patient just received contrast yesterda y. Past the 24-hour after the contrast. We will follow up after 48 hours. I am going to hold on th e JAYJAY inhibitor or ARB right now given the marginal blood pressure and recent acute kidney injury. W ith the presence of severe drop in his hemoglobin from 11.5 to 9.9, I am going to send for LDH and meyer ptoglobin and we will do urinalysis and protein creatinine to evaluate if there is any hemolysis in t he presence of his rheumatoid arthritis, and we will follow up. 2.Hypertension, controlled, optimal with the presence of acute kidney injury and contrast exposure. Avoid JAYJAY inhibitor. Avoid diuresis for the next 24 hours. 3.Congestive heart failure as by chest x-ray with severe cardiomegaly. I am going to send for cardi ac enzyme to rule out any myocarditis. We will follow up with Cardiology. 4.PE secondary to Xeljanz. Continue current treatment. We will follow up with primary. Okay to us e Coumadin and heparin drip. 5.Pneumonia. Continue current antibiotic dose appropriate. CAITY/KARY Voice ID: [id number] Report ID: [id number]
--- NOTE | 2020-08-26 12:39 | RAD REPORT ---
EXAM DESCRIPTION: US - Renal Ultrasound-Complete - 08/26/2020 12:14 pm CLINICAL HISTORY: garcía COMPARISON: Abdomen Pelvis W Contrast dated 08/25/2020. FINDINGS: The right kidney measures 9.9 x 5.1 x 4.7 cm. The left kidney measures 9.8 x 5.3 x 4.9 cm . Renal cortical thickness and echogenicity are normal. No hydronephrosis or suspicious renal mass. Bladder assessment is limited. No gross abnormality seen. IMPRESSION: No hydronephrosis or suspicious renal mass. No other significant findings.
[2020-08-26 13:18] LABS: Urine Appearance CLEAR (Clear); Urine Bilirubin NEGATIVE (Negative); Urine Blood 3+ (Negative); Urine Color DK YELLOW (Yellow); Urine Glucose NEGATIVE (Negative); Urine Protein 1+ (Negative); Urine Specific Gravity >=1.030 (1.005-1.030); Urine Urobilinogen 0.2 mg/dL (0.2-1.0); Urine pH 5.5 (5.0-7.0)
[2020-08-26 13:21] LABS: Urine Microscopic Reflex ORDER UMIC
[2020-08-26 13:29] LABS: Urine Amorphous Sediment 1+ /HPF (NONE SEEN); Urine Bacteria NONE SEEN /HPF (NONE SEEN)
[2020-08-26] MEDS ORDERED: POTASSIUM 25 MEQ EFFERV TAB PO ONE (16:00)
[2020-08-26] MEDS: FUROSEMIDE 40 MG/4 ML VIAL IV SCH (16:30)
[2020-08-26] MEDS ORDERED: AZITHROMYCIN IV 500 MG in NA CHLORIDE 0.9% 250 ML IVPB SCH (18:00)
[2020-08-26] MEDS: ATORVASTATIN 40 MG TAB PO SCH (21:06)
[2020-08-26 23:55] VITALS: TEMP 99.4
[2020-08-27 04:19] VITALS: BP 125/71
[2020-08-27] MEDS: PANTOPRAZOLE 40MG TABLET PO SCH (05:56)
[2020-08-27 06:30] LABS: Absolute Lymphocytes (CBC) 1.4 K/uL (0.7-4.9); Basophils % 0.3 % (0-1.3); Hematocrit 31.1 % (39.6-49.0); Lymphocytes % 8.3 % (15.3-44.8); MPV 8.4 fL (7.6-11.3); RBC Red Blood Cell Count 4.16 M/uL (4.33-5.43)
[2020-08-27 06:50] LABS: Albumin 3.2 g/dL (3.4-5.0); Phosphorus 1.6 mg/dL (2.5-4.9); Potassium 3.3 mmol/L (3.5-5.1)
--- NOTE | 2020-08-27 07:27 | P.PN ---
Subjective Date of Service: 08/27/20 Chief Complaint: Pneumonia Subjective: Improving no complaints of cough or shortness of breath today. No urinary complaints. Physical Examination - Vital Signs Temperature: 99.4 F Blood Pressure: 125/71 Pulse: 83 Respirations: 18 Pulse Ox (%): 98 - Physical Exam General: In no apparent distress HEENT: Atraumatic, Normocephalic Neck: Supple Respiratory: Normal air movement Cardiovascular: No rubs, No murmurs Gastrointestinal: Soft and benign, Non-distended Musculoskeletal: No clubbing Integumentary: Other (normal temperature) Neurological: Normal speech, Normal tone Urinary: Other (no bladder distention) External genitalia: Deferred Rectal: Deferred Assessment And Plan - Plan 1. Acute kidney injury, mild. differential diagnoses include contusion to his nephropathy, Xeljanz, and possible cardiorenal syndrome. previous serum creatinine 1.2 in July 2017.serum creatinine currently at 1.26.advised on liberal by mouth fluid intake. Monitor renal panel. May resume JAYJAY I/ARB. 2. Hypertension. BP at goal. Continue current regimen. May resume ACEI/ARB as above. 3. P.E. 2/2 Xeljanz. now on therapeutic anticoagulation therapy 4. Pneumonia/Sepsis. Continue abx. 5. Psoriatic arthritis. Mngt per other services. 6. Dispo. Okay to [place] from renal standpoint.
[2020-08-27] MEDS ORDERED: POTASSIUM CL SA 10 MEQ TAB PO ONE (08:36)
[2020-08-27] MEDS: FUROSEMIDE 40 MG/4 ML VIAL IV SCH (08:37)
[2020-08-27] MEDS: PREGABALIN 50 MG CAP PO SCH (08:37)
[2020-08-27] MEDS: POTASS/SODIUM PHOSPHATE 1 PKT POWD.PACK PO SCH ×2 (08:37→11:17)
[2020-08-27] MEDS: DULOXETINE 30 MG CAP PO SCH (08:38)
[2020-08-27] MEDS: ENOXAPARIN 80 MG/0.8 ML SQ SCH (08:38)
[2020-08-27] MEDS: CEFTRIAXONE/SWI 1gm 1 GM/10 ML SYR IV SCH (08:38)
--- NOTE | 2020-08-27 08:38 | ECHO ---
HEIGHT: 6 ft 2.5 in WEIGHT: 247 lb 14.4 oz DATE OF STUDY: 08/26/[address]: mavis bowers 2-DIMENSIONAL: YES M.MODE: YES DOPPLER: YES COLOR FLOW: YES TDS: NO PORTABLE: NO DEFINITY: NO BUBBLE STUDY: NO DIAGNOSIS: CARDIOMEGALY, PULMONARY EMBOLISM CARDIAC HISTORY: CATHERIZATION: NO SURGERY: NO PROSTHETIC VALVE: NO PACEMAKER: NO MEASUREMENTS (cm) DIASTOLIC (NORMALS) SYSTOLIC (NORMALS) IVSd 1.1 (0.6-1.2) LA Diam 1.9 (1.9-4.0) LVEF 65% LVIDd 4.0 (3.5-5.7) LVIDs 2.6 (2.0-3.5) %FS 35% LVPWd 1.1 (0.6-1.2) Ao Diam 2.7 (2.0-3.7) 2 DIMENSIONAL ASSESSMENT: RIGHT ATRIUM: NORMAL LEFT ATRIUM: NORMAL RIGHT VENTRICLE: NORMAL LEFT VENTRICLE: NORMAL TRICUSPID VALVE: NORMAL MITRAL VALVE: NORMAL PULMONIC VALVE: NORMAL AORTIC VALVE: NORMAL PERICARDIAL EFFUSION: NONE AORTIC ROOT: NORMAL LEFT VENTRICULAR WALL MOTION: NORMAL DOPPLER/COLOR FLOW: MILD TRICUSPID REGURGITATION. NORMAL RIGHT VENTRICULAR SYSTOLIC PRESSURE. COMMENTS: NORMAL LEFT VENTRICULAR SIZE AND FUNCTION. MILD TRICUSPID REGURGITATION. NO WALL MOTION ABNORMALITY. NO EFFUSION. TECHNOLOGIST: Clarence GRANT
[2020-08-27] MEDS ORDERED: POTASSIUM 25 MEQ EFFERV TAB PO ONE (09:00)
--- NOTE | 2020-08-27 09:29 | P.DS ---
Admission Date: 08/25/20 Discharge Date: 08/27/20 Disposition: ROUTINE DISCHARGE Discharge Condition: FAIR Reason for Admission: Pneumonia - Problems (1) Acute pulmonary embolism Status: Acute (2) Community acquired pneumonia Status: Acute (3) Psoriatic arthritis Status: Acute (4) Sepsis Status: Acute (5) Cardiomegaly Status: Acute (6) GERD (gastroesophageal reflux disease) Status: Acute Brief History of Present Illness: 49-year-old gentleman with a history of psoriatic arthritis on Xeljanz presented to the emergency department due to the complaint of nausea, vomiting, diarrhea and malaise of 3 days duration. Patient denied any shortness of breath or chest pain. He also denied any fever. He reported easy fatigability. Workup done in the emergency department with CTA thorax demonstrated left-sided pulmonary embolism and bilateral pneumonia. Abdominal CT demonstrated large hiatal hernia. Patient is slightly tachycardic in the ED. He has leukocytosis but no fever. Patient meets criteria for SIRS. BMP cultures show slightly elevated creatinine. Chest x-ray demonstrated cardiomegaly. Patient given full-dose Lovenox for pulmonary emboli and started on IV Rocephin and Zithromax for pneumonia. He is admitted for further management. Hospital Course: Patient admitted to the medical floor and treated for pulmonary embolism full- dose lovenox. He was also treated for pneumonia with Rocephin and Zithromax for community-acquired pneumonia. Chest x-ray suggested cardiomegaly but echocardiogram was unremarkable with normal and normal ventricular croft per report. Blood culture yielded no growth. Patient's symptoms resolved during the hospital stay. He experienced an episode of low-grade fever. He did not require oxygen, had no chest pain. Patient is currently without symptoms. Vitals stable. He is discharged with oral Augmentin to continue treatment for the pneumonia. He is also prescribed Xarelto for the pulmonary embolism. Patient was informed about risk of pulmonary embolism with Xenjanz and advised to follow with his trigonometry tutor to consider other options for his psoriatic arthritis. Vital Signs/Physical Exam: Temp Pulse Resp BP Pulse Ox 99.4 F 83 18 125/71 98 08/27/20 07:27 08/27/20 08:37 08/27/20 07:27 08/27/20 08:37 08/27/20 07:27 General: Alert, In no apparent distress, Oriented x3 HEENT: Mucous membr. moist/pink Neck: Supple, JVD not distended Respiratory: Clear to auscultation bilaterally, Normal air movement Cardiovascular: No edema, Regular rate/rhythm, Normal S1 S2 Gastrointestinal: Normal bowel sounds, Soft and benign, Non-distended Musculoskeletal: No swelling, No tenderness Integumentary: No rashes, No erythema Neurological: Normal strength at 5/5 x4 extr Laboratory Data at Discharge: WBC 16.90 K/uL (4.3-10.9) H D 08/27/20 06:00 Hgb 10.1 g/dL (13.6-17.9) L 08/27/20 06:00 Hct 31.1 % (39.6-49.0) L 08/27/20 06:00 Plt Count 361 K/uL (152-406) 08/27/20 06:00 PT 10.8 SECONDS (9.5-12.5) 08/25/20 15:30 INR 0.94 08/25/20 15:30 Sodium 136 mmol/L (136-145) 08/27/20 06:00 Potassium 3.3 mmol/L (3.5-5.1) L 08/27/20 06:00 BUN 10 mg/dL (7-18) 08/27/20 06:00 Creatinine 1.26 mg/dL (0.55-1.3) 08/27/20 06:00 Glucose 100 mg/dL (74-106) 08/27/20 06:00 Uric Acid 7.5 mg/dL (3.5-7.2) H 08/26/20 05:39 Phosphorus 1.6 mg/dL (2.5-4.9) L 08/27/20 06:00 Magnesium 2.3 mg/dL (1.8-2.4) 08/26/20 05:39 Total Bilirubin 0.5 mg/dL (0.2-1.0) 08/25/20 15:30 AST 13 U/L (15-37) L 08/25/20 15:30 ALT 25 U/L (12-78) 08/25/20 15:30 Alkaline Phosphatase 109 U/L (45-117) 08/25/20 15:30 Troponin I < 0.02 ng/mL (0.0-0.045) 08/26/20 01:24 Triglycerides 146 mg/dL (<150) 08/26/20 05:39 Cholesterol 174 mg/dL (<200) 08/26/20 05:39 HDL Cholesterol 41 mg/dL (40-60) 08/26/20 05:39 Cholesterol/HDL Ratio 4.24 08/26/20 05:39 Lipase 197 U/L (73-393) 08/25/20 15:30 Home Medications: Atorvastatin Calcium [Lipitor] 1 tab PO BEDTIME 08/25/20 Duloxetine HCl 60 mg PO DAILY 08/25/20 Hydrocodone 5/APAP 325 [[place] 5/325*] 1 tab PO BID PRN 08/25/20 Pregabalin [Lyrica] 100 mg PO BID 08/25/20 Amox/Clavulanate [Augmentin 875-125 Tab] 1 each PO BID #14 tab 08/27/20 Rivaroxaban [Xarelto] 1 each PO BID #1 tab.ds.pk 08/27/20 New Medications: Amox/Clavulanate [Augmentin 875-125 Tab] 1 each PO BID #14 tab Rivaroxaban [Xarelto] 1 each PO BID #1 tab.ds.pk Physician Discharge Instructions: Please follow up with a trigonometry tutor to discuss other options for your psoriatic arthritis treatment. Diet: AHA Activity: Ad zayra Followup: NONE,NONE [Primary Care Provider] - 1-2 Weeks Time spent managing pt's care (in minutes): 35
[2020-08-27 10:51] VITALS: O2SAT 94
[2020-08-27] MEDS ORDERED: RIVAROXABAN 15 MG TABLET PO SCH (21:00)
== END 2020-08-27 12:14 | disposition home or self-care (01) | DRG 193 ==
LOC: ER 14:32 → ERHOLD 18:06 → 2ND 19:20
PROVIDERS: ADMIT Internal Medicine; ATTEND Internal Medicine
DX: J18.9 Pneumonia, unspecified organism (principal); I26.99 Other pulmonary embolism without acute cor pulmonale; N17.9 Acute kidney failure, unspecified; L40.50 Arthropathic psoriasis, unspecified; K21.9 Gastro-esophageal reflux disease without esophagitis; K44.9 Diaphragmatic hernia without obstruction or gangrene; Z20.822 Contact with and (suspected) exposure to COVID-19
CPT/HCPCS: 36415; 71045; 71275; 74177; 76770; 80048; 80061; 80069; 80076; 81003; 81015; 82550; 82570; 82947; 83010; 83605; 83615; 83690; 83735; 83880; 84100; 84132; 84156; 84443; 84484; 84550; 85025; 85610; 87040; 87086; 87088; 93005; 93306; 93970; 94760; 96372; 99285; J0456; J0696; J1650; J1940; J2405; J7030; J7050; Q9967; U0003

== ENCOUNTER 2021-03-07 04:07 | Emergency (ER) | payer OTHER ==
--- OUTSIDE RECORDS SUMMARY | 2021-03-07 04:13 | XMS REPORT | Continuity of Care Document ---
:1970 Author Organization [facility] [place] t Address [address] [place] [address] [address] [place] [address] Care Team Providers Name Role Phone Carmelo FUNG Attending Clinician Eugene Buck DO Attending Clinician Jorge Alberto PETERS Attending Clinician Unavailable Ewelina LIN Attending Clinician Unavailable Doctor Unassigned, Name Attending Clinician Unavailable Shannen Carroll RN Attending Clinician Unavailable [facility] Attending Clinician Unavailable Major RUVALCABA Attending Clinician MAJOR Attending Clinician Unavailable TITO Attending Clinician Unavailable Grace GUTIERREZ Attending Clinician Shannen FREDERICK Attending Clinician Unavailable Payers Payer Name Policy Type Policy Number Effective Date Expiration Date S ource Problems Condition Condition Condition Status Onset Resolution Last Treating Co mments Source Name Details Category Date Date Treatment Clinician Date Other Other Disease Active 2019- Univers chronic chronic 8-27 ity of pain pain 00:00: [address] Medication Medication Disease Active 2019- U nivers refill refill 8-27 ity of 00:00: [address] Medication Medication Disease Active 2019- U nivers refill refill 8-27 ity of 00:00: [address] Tobacco Tobacco Disease Active 2019- Univers abuse abuse 3-16 ity of 00:00: [address] Acute Acute Disease Active 2017-03 Univers maxillary maxillary 2-15 [place] recurrence 00 Me dical not not Branch specified specified Elevated Elevated Disease Active Unive rs ALT ALT 4-27 ity of measuremen measuremen [place] 00 [facility] Elevated Elevated Disease Active Unive rs platelet platelet 4-27 ity of count count 00:00: [place] [facility] Creatinine Creatinine Disease Active 2017- U nivers elevation elevation 4-27 ity of 00:00: [place] [facility] Hypernatre Hypernatre Disease Active U [place]ivers [place] 4-27 ity of 00:00: [place] [facility] Creatinine Creatinine Disease Active U nivers elevation elevation 4-27 ity of 00:00: [place] [facility] Hypernatre Hypernatre Disease Active U nivers [place] 4-27 ity of 00:00: [place] [facility] On long On long Disease Active Univers term drug term drug 2-02 ity of therapy therapy 00:00: [place] [facility] Psoriatic Psoriatic Disease Active Uni vers arthritis arthritis 2-02 ity of 00:00: [place] [facility] Gastro-eso Gastro-eso Disease Active 2014-03 U nivers phageal phageal 0-09 ity of reflux reflux 00:00: [place] disease disease 00 Medical with with Branch esophagiti esophagiti s s Hyperlipid Hyperlipid Disease Active 2014-03 U nivers emia emia 0-09 ity of 00:00: [place] 00 [facility] Branch Allergies, Adverse Reactions, Alerts Allergy Allergy Status Severity Reaction(s) Onset Inactive Treating Comm ents Source Name Type Date Date Clinician NO KNOWN Drug Active Univers ALLERGIE Class ity of S [facility] Social History Social Habit Start Date Stop Date Quantity Comments Source Exposure to Not sure [facility] SARS-CoV-2 (event) [facility] History of tobacco Cigarette Smoker University of use [facility] Tobacco use and 2019-09-03 2019-09-03 Never used Universit y of exposure 00:00:00 00:00:00 [facility] Cigarettes smoked 2019-09-03 2019-09-03 Univers ity of current (pack per 00:00:00 00:00:00 ) - Reported Branch Cigarette 2019-09-03 2019-09-03 University of pack-years 00:00:00 00:00:00 [facility] Alcohol intake 2019-09-03 2019-09-03 Current University of 00:00:00 00:00:00 non-drinker of [facility] alcohol [place] (finding) Tobacco Comment 2015-10-29 2015-10-29 thinking about Unive rsity of 00:00:00 00:00:00 [facility] Sex Ass[birth year] At [birth year] Universit y of 00:00:00 00:00:00 [facility] Smoking Status Start Date Stop Date Source Current every day smoker 2019-09-03 00:00:00 Uni versity of [facility] Medications Ordered Filled Start Stop Current Ordering Indication Dosage Frequency Signature Comments Components Source Medication Medication Date Date Medication? Clinician (SIG) Name Name IBUPROFEN 2020-1 Yes [id number] TAKE 1 U nivers 800 mg 2-22 TABLET BY ity of tablet 00:00: [facility] 00 THREE Medical TIMES A Branch DAY WITH MEALS IBUPROFEN 2020-1 Yes [id number] TAKE 1 U nivers 800 mg 2-22 TABLET BY ity of tablet 00:00: [facility] 00 THREE Medical TIMES A Branch DAY WITH MEALS IBUPROFEN 2020-1 Yes [id number] TAKE 1 U nivers 800 mg 2-22 TABLET BY ity of tablet 00:00: [facility] 00 THREE Medical TIMES A Branch DAY WITH MEALS IBUPROFEN 2020-1 Yes [id number] TAKE 1 U nivers 800 mg 2-22 TABLET BY ity of tablet 00:00: [facility] 00 THREE Medical TIMES A Branch DAY WITH MEALS IBUPROFEN 2020-1 Yes [id number] TAKE 1 U nivers 800 mg 0-19 TABLET BY ity of tablet 00:00: [facility] 00 THREE Medical TIMES A Branch DAY WITH MEALS IBUPROFEN 2020-1 2020- No [id number] TAKE 1 Univers 800 mg 0-19 12-22 TABLET BY ity of tablet 00:00: 00:00 [facility] [place] 00 :00 THREE Medical TIMES A Branch DAY WITH MEALS IBUPROFEN 2020-0 Yes [id number] TAKE 1 U nivers 800 mg 9-25 TABLET BY ity of tablet 00:00: [facility] 00 THREE Medical TIMES A Branch DAY WITH MEALS IBUPROFEN 2020-0 2020- No [id number] TAKE 1 Univers 800 mg 9-25 10-19 TABLET BY ity of tablet 00:00: 00:00 [facility] [place] 00 :00 THREE Medical TIMES A Branch DAY WITH MEALS ibuprofen 2020-0 Yes [id number] 800mg Take 1 Univers (IBU) 800 9-02 tablet by ity o f mg tablet 00:00: mouth 3 (three) Medical times Branch daily with meals. oct 2019 Yes [id number] Apply to Uni vers betamethaso 9-02 area(s) ity o f ne 00:00: daily. [place] dipropionat 00 Medical e 0.05 % Branch ointment gabapentin 2020-0 Yes [id number] 300mg Take 1 Univers 300 mg 9-02 capsule by ity of capsule 00:00: mouth 3 (three) Medical times Branch daily. oct 2019 Yes [id number] Apply to Uni vers betamethaso 11-11 area(s) ity o f ne 00:00: daily. [place] dipropionat 00 Medical e 0.05 % Branch ointment gabapentin 2019-0 Yes [id number] 300mg Take 1 Univers 300 mg 9-02 capsule by ity of capsule 00:00: mouth 3 (three) Medical times Branch daily. oct 2019 Yes [id number] Apply to Uni vers betamethaso 11-11 area(s) ity o f ne 00:00: daily. [place] dipropionat 00 Medical e 0.05 % Branch ointment gabapentin 2019-0 Yes [id number] 300mg Take 1 Univers 300 mg 9-02 capsule by ity of capsule 00:00: mouth 3 (three) Medical times Branch daily. oct 2019 Yes [id number] Apply to Uni vers betamethaso 11-11 area(s) ity o f ne 00:00: daily. [place] dipropionat 00 Medical e 0.05 % Branch ointment gabapentin 2019-0 Yes [id number] 300mg Take 1 Univers 300 mg 9-02 capsule by ity of capsule 00:00: mouth 3 (three) Medical times Branch daily. oct 2019 Yes [id number] Apply to Uni vers betamethaso 9-02 area(s) ity o f ne 00:00: daily. [place] dipropionat 00 Medical e 0.05 % Branch ointment gabapentin 2020-0 Yes [id number] 300mg Take 1 Univers 300 mg 9-02 capsule by ity of capsule 00:00: mouth 3 (three) Medical times Branch daily. oct 2019 Yes [id number] Apply to Uni vers betamethaso 9-02 area(s) ity o f ne 00:00: daily. [place] dipropionat 00 Medical e 0.05 % Branch ointment gabapentin 2019-0 Yes [id number] 300mg Take 1 Univers 300 mg 11-11 capsule by ity of capsule 00:00: mouth 3 [place] 00 (three) Medical times Branch daily. oct 2019-0 Yes [id number] Apply to Uni vers betamethaso 11-11 area(s) ity o f ne 00:00: daily. [place] dipropionat 00 Medical e 0.05 % Branch ointment gabapentin 2019-0 Yes [id number] 300mg Take 1 Univers 300 mg 11-11 capsule by ity of capsule 00:00: mouth 3 [place] 00 (three) Medical times Branch daily. ibuprofen 2020- No [id number] 800mg Take 1 Univers (IBU) 800 11-11 09-25 tablet by ity of mg tablet 00:00: 00:00 [place] 3 [place] (three) Medical times Branch daily with meals. albuterol 0 Yes 2{puff} Inhale 2 U nivers 90 6-29 Puffs ity of mcg/actuati 00:00: every 6 [place] as on inhaler 00 (six) Medical hours as Branch needed for Wheezing or Shortness of Breath. albuterol 0 Yes 2{puff} Inhale 2 U nivers 90 6-29 Puffs ity of mcg/actuati 00:00: every 6 [place] as on inhaler 00 (six) Medical hours as Branch needed for Wheezing or Shortness of Breath. albuterol 2019-0 Yes 2{puff} Inhale 2 U nivers 90 6-29 Puffs ity of mcg/actuati 00:00: every 6 [place] on inhaler 00 (six) Medical hours as Branch needed for Wheezing or Shortness of Breath. albuterol 2020-0 Yes 2{puff} Inhale 2 U nivers 90 6-29 Puffs ity of mcg/actuati 00:00: every 6 [place] on inhaler 00 (six) Medical hours as Branch needed for Wheezing or Shortness of Breath. albuterol 2019-0 Yes 2{puff} Inhale 2 U nivers 90 6-29 Puffs ity of mcg/actuati 00:00: every 6 [place] on inhaler 00 (six) Medical hours as Branch needed for Wheezing or Shortness of Breath. albuterol 2020-0 Yes 2{puff} Inhale 2 U nivers 90 6-29 Puffs ity of mcg/actuati 00:00: every 6 [place] on inhaler 00 (six) Medical hours as Branch needed for Wheezing or Shortness of Breath. albuterol 2020-0 Yes 2{puff} Inhale 2 U nivers 90 6-29 Puffs ity of mcg/actuati 00:00: every 6 [place] on inhaler 00 (six) Medical hours as Branch needed for Wheezing or Shortness of Breath. albuterol 2020-0 Yes 2{puff} Inhale 2 U nivers 90 6-29 Puffs ity of mcg/actuati 00:00: every 6 [place] on inhaler 00 (six) Medical hours as Branch needed for Wheezing or Shortness of Breath. albuterol 2020-0 Yes 2{puff} Inhale 2 U nivers 90 6-29 Puffs ity of mcg/actuati 00:00: every 6 [place] as on inhaler 00 (six) Medical hours as Branch needed for Wheezing or Shortness of Breath. GABAPENTIN 2020-0 Yes [id number] TAKE 1 Univers 300 mg 6-15 CAPSULE BY ity of capsule 00:00: MOUTH [place] 00 THREE Medical TIMES A Branch DAY GABAPENTIN 2020-0 Yes [id number] TAKE 1 Univers 300 mg 6-15 CAPSULE BY ity of capsule 00:00: MOUTH [place] 00 THREE Medical TIMES A Branch DAY GABAPENTIN 2020-0 Yes [id number] TAKE 1 Univers 300 mg 6-15 CAPSULE BY ity of capsule 00:00: MOUTH [place] 00 THREE Medical TIMES A Branch DAY GABAPENTIN 2020-0 Yes [id number] TAKE 1 Univers 300 mg 6-15 CAPSULE BY ity of capsule 00:00: MOUTH [place] 00 THREE Medical TIMES A Branch DAY GABAPENTIN 2020-0 Yes [id number] TAKE 1 Univers 300 mg 6-15 CAPSULE BY ity of capsule 00:00: MOUTH [place] 00 THREE Medical TIMES A Branch DAY GABAPENTIN 2020-0 2020- No [id number] TAKE 1 Univers 300 mg 6-15 - CAPSULE BY ity of capsule 00:00: 00:00 MOUTH [place] 00 :00 THREE Medical TIMES A Branch DAY oct 2019-0 Yes [id number] Apply to Uni vers betamethaso 5-26 area(s) ity o f ne 00:00: daily. [place] dipropionat 00 Medical e 0.05 % Branch ointment oct 20190 Yes [id number] Apply to Uni vers betamethaso 5-26 area(s) ity o f ne 00:00: daily. [place] dipropionat 00 Medical e 0.05 % Branch ointment oct 2019 Yes [id number] Apply to Uni vers betamethaso 5-26 area(s) ity o f ne 00:00: daily. [place] dipropionat 00 Medical e 0.05 % Branch ointment oct 20190 Yes [id number] Apply to Uni vers betamethaso 5-26 area(s) ity o f ne 00:00: daily. [place] dipropionat 00 Medical e 0.05 % Branch ointment oct 2019 Yes [id number] Apply to Uni vers betamethaso 5-26 area(s) ity o f ne 00:00: daily. [place] dipropionat 00 Medical e 0.05 % Branch ointment oct 20190 Yes [id number] Apply to Uni vers betamethaso 5-26 area(s) ity o f ne 00:00: daily. [place] dipropionat 00 Medical e 0.05 % Branch ointment oct 2019 2020- No [id number] Apply to Un joleen betamethaso 5-26 09-02 area(s) ity of ne 00:00: 00:00 daily. [place] dipropionat 00 :00 Medical e 0.05 % Branch ointment GABAPENTIN 2020-0 Yes [id number] TAKE 1 Univers 300 mg 5-22 CAPSULE BY ity of capsule 00:00: MOUTH [place] 00 THREE Medical TIMES A Branch DAY GABAPENTIN 2020-0 Yes [id number] TAKE 1 Univers 300 mg 5-22 CAPSULE BY ity of capsule 00:00: MOUTH [place] 00 THREE Medical TIMES A Branch DAY GABAPENTIN 2020-0 2020- No [id number] TAKE 1 Univers 300 mg 5-22 06-15 CAPSULE BY ity of capsule 00:00: 00:00 MOUTH [place] 00 :00 THREE Medical TIMES A Branch DAY varenicline 2020-0 Yes [id number] Take one Univers (CHANTIX 4-20 0.5mg tab ity of STARTING 00:00: by mouth [place] MONTH BOX) 00 once daily Med ical 0.5 mg for 3 Branch (11)- 1 mg days, then (42) tablet one 0.5mg tab twice daily for 4 days, then one 1mg tab twice daily. varenicline 2020-0 Yes [id number] Take one Univers (CHANTIX 4-20 0.5mg tab ity of STARTING 00:00: by mouth [facility]) 00 once daily Med ical 0.5 mg for 3 Branch (11)- 1 mg days, then (42) tablet one 0.5mg tab twice daily for 4 days, then one 1mg tab twice daily. varenicline 2020-0 Yes [id number] Take one Univers (CHANTIX 4-20 0.5mg tab ity of STARTING 00:00: by mouth [facility]) 00 once daily Med ical 0.5 mg for 3 Branch (11)- 1 mg days, then (42) tablet one 0.5mg tab twice daily for 4 days, then one 1mg tab twice daily. varenicline 2019-0 Yes [id number] Take one Univers (CHANTIX 4-20 0.5mg tab ity of STARTING 00:00: by mouth [facility]) 00 once daily Med ical 0.5 mg for 3 Branch (11)- 1 mg days, then (42) tablet one 0.5mg tab twice daily for 4 days, then one 1mg tab twice daily. varenicline 2019-0 Yes [id number] Take one Univers (CHANTIX 4-20 0.5mg tab ity of STARTING 00:00: by mouth [facility]) 00 once daily Med ical 0.5 mg for 3 Branch (11)- 1 mg days, then (42) tablet one 0.5mg tab twice daily for 4 days, then one 1mg tab twice daily. varenicline 2020-0 Yes [id number] Take one Univers (CHANTIX 4-20 0.5mg tab ity of STARTING 00:00: by mouth [facility]) 00 once daily Med ical 0.5 mg for 3 Branch (11)- 1 mg days, then (42) tablet one 0.5mg tab twice daily for 4 days, then one 1mg tab twice daily. varenicline 2020-0 Yes [id number] Take one Univers (CHANTIX 4-20 0.5mg tab ity of STARTING 00:00: by mouth [facility]) 00 once daily Med ical 0.5 mg for 3 Branch (11)- 1 mg days, then (42) tablet one 0.5mg tab twice daily for 4 days, then one 1mg tab twice daily. varenicline 2020-0 Yes [id number] Take one Univers (CHANTIX 4-20 0.5mg tab ity of STARTING 00:00: by mouth [facility]) 00 once daily Med ical 0.5 mg for 3 Branch (11)- 1 mg days, then (42) tablet one 0.5mg tab twice daily for 4 days, then one 1mg tab twice daily. varenicline 2020-0 Yes [id number] Take one Univers (CHANTIX 4-20 0.5mg tab ity of STARTING 00:00: by mouth [facility]) 00 once daily Med ical 0.5 mg for 3 Branch (11)- 1 mg days, then (42) tablet one 0.5mg tab twice daily for 4 days, then one 1mg tab twice daily. varenicline 2020-0 Yes [id number] Take one Univers (CHANTIX 4-20 0.5mg tab ity of STARTING 00:00: by mouth [facility]) 00 once daily Med ical 0.5 mg for 3 Branch (11)- 1 mg days, then (42) tablet one 0.5mg tab twice daily for 4 days, then one 1mg tab twice daily. varenicline 2020-0 Yes [id number] Take one Univers (CHANTIX 4-20 0.5mg tab ity of STARTING 00:00: by mouth [facility]) 00 once daily Med ical 0.5 mg for 3 Branch (11)- 1 mg days, then (42) tablet one 0.5mg tab twice daily for 4 days, then one 1mg tab twice daily. varenicline 2020-0 Yes [id number] Take one Univers (CHANTIX 4-20 0.5mg tab ity of STARTING 00:00: by mouth [facility]) 00 once daily Med ical 0.5 mg for 3 Branch (11)- 1 mg days, then (42) tablet one 0.5mg tab twice daily for 4 days, then one 1mg tab twice daily. varenicline 2020-0 Yes [id number] Take one Univers (CHANTIX 4-20 0.5mg tab ity of STARTING 00:00: by mouth [facility] BOX) 00 once daily Med ical 0.5 mg for 3 Branch (11)- 1 mg days, then (42) tablet one 0.5mg tab twice daily for 4 days, then one 1mg tab twice daily. varenicline 2020-0 Yes [id number] Take one Univers (CHANTIX 4-20 0.5mg tab ity of STARTING 00:00: by mouth [facility] BOX) 00 once daily Med ical 0.5 mg for 3 Branch (11)- 1 mg days, then (42) tablet one 0.5mg tab twice daily for 4 days, then one 1mg tab twice daily. varenicline 2019-0 Yes [id number] Take one Univers (CHANTIX 4-20 0.5mg tab ity of STARTING 00:00: by mouth [facility]) 00 once daily Med ical 0.5 mg for 3 Branch (11)- 1 mg days, then (42) tablet one 0.5mg tab twice daily for 4 days, then one 1mg tab twice daily. varenicline 2019-0 Yes [id number] Take one Univers (CHANTIX 4-20 0.5mg tab ity of STARTING 00:00: by mouth [facility]) 00 once daily Med ical 0.5 mg for 3 Branch (11)- 1 mg days, then (42) tablet one 0.5mg tab twice daily for 4 days, then one 1mg tab twice daily. varenicline 2019-0 Yes [id number] Take one Univers (CHANTIX 4-20 0.5mg tab ity of STARTING 00:00: by mouth [facility]) 00 once daily Med ical 0.5 mg for 3 Branch (11)- 1 mg days, then (42) tablet one 0.5mg tab twice daily for 4 days, then one 1mg tab twice daily. varenicline 2019-0 Yes [id number] Take one Univers (CHANTIX 4-20 0.5mg tab ity of STARTING 00:00: by mouth [facility]) 00 once daily Med ical 0.5 mg for 3 Branch (11)- 1 mg days, then (42) tablet one 0.5mg tab twice daily for 4 days, then one 1mg tab twice daily. GABAPENTIN 2020-0 Yes [id number] TAKE 1 Univers 300 mg 4-12 CAPSULE BY ity of capsule 00:00: MOUTH THREE Medical TIMES A Branch DAY GABAPENTIN 2020-0 Yes [id number] TAKE 1 Univers 300 mg 4-12 CAPSULE BY ity of capsule 00:00: MOUTH THREE Medical TIMES A Branch DAY GABAPENTIN 2020-0 Yes [id number] TAKE 1 Univers 300 mg 4-12 CAPSULE BY ity of capsule 00:00: MOUTH THREE Medical TIMES A Branch DAY GABAPENTIN 2020-0 Yes [id number] TAKE 1 Univers 300 mg 4-12 CAPSULE BY ity of capsule 00:00: MOUTH THREE Medical TIMES A Branch DAY GABAPENTIN 2020-0 Yes [id number] TAKE 1 Univers 300 mg 4-12 CAPSULE BY ity of capsule 00:00: MOUTH THREE Medical TIMES A Branch DAY GABAPENTIN 2020-0 2020- No [id number] TAKE 1 Univers 300 mg 4-12 05-22 CAPSULE BY ity of capsule 00:00: 00:00 MOUTH [place] 00 :00 THREE Medical TIMES A Branch DAY ibuprofen 2020-0 2020- No IBU 800 mg U nivers (IBU) 800 3-24 03-24 tablet ity of mg tablet 14:09: 00:00 [place] 14 :00 Medical Branch ibuprofen 2020-0 Yes [id number] 800mg Take 1 Univers (IBU) 800 3-24 tablet by ity o f mg tablet 00:00: mouth (three) Medical times Branch daily with meals. ibuprofen 2020-0 Yes [id number] 800mg Take 1 Univers (IBU) 800 3-24 tablet by ity o f mg tablet 00:00: mouth (three) Medical times Branch daily with meals. ibuprofen 2020-0 Yes [id number] 800mg Take 1 Univers (IBU) 800 3-24 tablet by ity o f mg tablet 00:00: mouth (three) Medical times Branch daily with meals. ibuprofen 2020-0 Yes [id number] 800mg Take 1 Univers (IBU) 800 3-24 tablet by ity o f mg tablet 00:00: mouth (three) Medical times Branch daily with meals. ibuprofen 2020-0 Yes [id number] 800mg Take 1 Univers (IBU) 800 3-24 tablet by ity o f mg tablet 00:00: mouth (three) Medical times Branch daily with meals. ibuprofen 2020-0 Yes [id number] 800mg Take 1 Univers (IBU) 800 3-24 tablet by ity o f mg tablet 00:00: mouth (three) Medical times Branch daily with meals. ibuprofen 2020-0 Yes [id number] 800mg Take 1 Univers (IBU) 800 3-24 tablet by ity o f mg tablet 00:00: mouth (three) Medical times Branch daily with meals. ibuprofen 2020-0 Yes [id number] 800mg Take 1 Univers (IBU) 800 3-24 tablet by ity o f mg tablet 00:00: mouth (three) Medical times Branch daily with meals. ibuprofen 2020-0 Yes [id number] 800mg Take 1 Univers (IBU) 800 3-24 tablet by ity o f mg tablet 00:00: [facility] (three) Medical times Branch daily with meals. ibuprofen 2020-0 Yes [id number] 800mg Take 1 Univers (IBU) 800 3-24 tablet by ity o f mg tablet 00:00: [facility] (three) Medical times Branch daily with meals. ibuprofen 2020-0 Yes [id number] 800mg Take 1 Univers (IBU) 800 3-24 tablet by ity o f mg tablet 00:00: mouth (three) Medical times Branch daily with meals. ibuprofen 2020-0 Yes [id number] 800mg Take 1 Univers (IBU) 800 3-24 tablet by ity o f mg tablet 00:00: [facility] (three) Medical times Branch daily with meals. ibuprofen 2020-0 Yes [id number] 800mg Take 1 Univers (IBU) 800 3-24 tablet by ity o f mg tablet 00:00: mouth (three) Medical times Branch daily with meals. ibuprofen 2020-0 2020- No [id number] 800mg Take 1 Univers (IBU) 800 3-24 09-02 tablet by ity of mg tablet 00:00: 00:[place] 3 [place] :[place] (three) Medical times Branch daily with meals. GABAPENTIN 2020-0 Yes [id number] TAKE 1 Univers 300 mg 3-19 CAPSULE BY ity of capsule 00:00: MOUTH THREE Medical TIMES A Branch DAY GABAPENTIN 2020-0 Yes [id number] TAKE 1 Univers 300 mg 3-19 CAPSULE BY ity of capsule 00:00: MOUTH THREE Medical TIMES A Branch DAY GABAPENTIN 2020-0 2020- No [id number] TAKE 1 Univers 300 mg 3-19 04-12 CAPSULE BY ity of capsule 00:00: 00:00 [facility] 00 :00 THREE Medical TIMES A Branch DAY gabapentin 2020-0 Yes [id number] TAKE 1 Univers 300 mg 2-24 CAPSULE BY ity of capsule 00:00: [facility] THREE Medical TIMES A Branch DAY gabapentin 2020-0 2020- No [id number] TAKE 1 Univers 300 mg 2-24 03-19 CAPSULE BY ity of capsule 00:00: 00:00 [facility] 00 :00 THREE Medical TIMES A Branch DAY gabapentin 2020-0 Yes [id number] TAKE 1 Univers 300 mg 1-27 CAPSULE BY ity of capsule 00:00: [facility] THREE Medical TIMES A Branch DAY gabapentin 2020-0 2020- No [id number] TAKE 1 Univers 300 mg 1-27 02-24 CAPSULE BY ity of capsule 00:00: 00:00 [facility] 00 :00 THREE Medical TIMES A Branch DAY esomeprazol 2020-0 Yes [id number] TAKE 1 Univers e 40 mg 1-03 CAPSULE ity of capsule 00:00: DAILY WITH [facility] esomeprazol 2020-0 Yes [id number] TAKE 1 Univers e 40 mg 1-03 CAPSULE ity of capsule 00:00: DAILY WITH [facility] esomeprazol 2019-0 Yes [id number] TAKE 1 Univers e 40 mg 1-03 CAPSULE ity of capsule 00:00: DAILY WITH [facility] esomeprazol 2019-0 Yes [id number] TAKE 1 Univers e 40 mg 1-03 CAPSULE ity of capsule 00:00: DAILY WITH [facility] esomeprazol 2020-0 Yes [id number] TAKE 1 Univers e 40 mg 1-03 CAPSULE ity of capsule 00:00: DAILY WITH [facility] esomeprazol 2020-0 Yes [id number] TAKE 1 Univers e 40 mg 1-03 CAPSULE ity of capsule 00:00: DAILY WITH [facility] esomeprazol 2019-0 Yes [id number] TAKE 1 Univers e 40 mg 1-03 CAPSULE ity of capsule 00:00: DAILY WITH [facility] esomeprazol 2019-0 Yes [id number] TAKE 1 Univers e 40 mg 1-03 CAPSULE ity of capsule 00:00: DAILY WITH [facility] esomeprazol 2019-0 Yes [id number] TAKE 1 Univers e 40 mg 1-03 CAPSULE ity of capsule 00:00: DAILY WITH [facility] esomeprazol 0 Yes [id number] TAKE 1 Univers e 40 mg 1-03 CAPSULE ity of capsule 00:00: DAILY WITH [facility] esomeprazol 0 Yes [id number] TAKE 1 Univers e 40 mg 1-03 CAPSULE ity of capsule 00:00: DAILY WITH [facility] esomeprazol Yes [id number] TAKE 1 Univers e 40 mg 1-03 CAPSULE ity of capsule 00:00: DAILY WITH [facility] esomeprazol 0 Yes [id number] TAKE 1 Univers e 40 mg 1-03 CAPSULE ity of capsule 00:00: DAILY WITH [facility] esomeprazol 0 Yes [id number] TAKE 1 Univers e 40 mg 1-03 CAPSULE ity of capsule 00:00: DAILY WITH [facility] [facility] esomeprazol Yes [id number] TAKE 1 Univers e 40 mg 1-03 CAPSULE ity of capsule 00:00: DAILY WITH [facility] esomeprazol 0 Yes [id number] TAKE 1 Univers e 40 mg 1-03 CAPSULE ity of capsule 00:00: DAILY WITH [facility] esomeprazol 0 Yes [id number] TAKE 1 Univers e 40 mg 1-03 CAPSULE ity of capsule 00:00: DAILY WITH [facility] esomeprazol 0 Yes [id number] TAKE 1 Univers e 40 mg 1-03 CAPSULE ity of capsule 00:00: DAILY WITH [facility] esomeprazol 0 Yes [id number] TAKE 1 Univers e 40 mg 1-03 CAPSULE ity of capsule 00:00: DAILY WITH [facility] esomeprazol 0 Yes [id number] TAKE 1 Univers e 40 mg 1-03 CAPSULE ity of capsule 00:00: DAILY WITH [facility] esomeprazol Yes [id number] TAKE 1 Univers e 40 mg 1-03 CAPSULE ity of capsule 00:00: DAILY WITH [place] [facility] esomeprazol Yes [id number] TAKE 1 Univers e 40 mg 1-03 CAPSULE ity of capsule 00:00: DAILY WITH [facility] esomeprazol Yes [id number] TAKE 1 Univers e 40 mg 1-03 CAPSULE ity of capsule 00:00: DAILY WITH [facility] oct 2019-0 2020- No [id number] Apply to Un [facility]en betamethaso 1-03 02-03 area(s) ity of ne 00:00: 05:59 daily for [place] dipropionat 00 :00 30 days. Medi donald e 0.05 % Branch ointment gabapentin 2020- No [id number] TAKE 1 Univers 300 mg 1-03 01-27 CAPSULE BY ity of capsule 00:00: 00:00 MOUTH [place] 00 :00 THREE Medical TIMES A Branch DAY ibuprofen 2018-03 Yes IBU 800 mg [facility] (IBU) 800 0-27 tablet ity of mg tablet 15:31: [address] ibuprofen 2018-03 Yes IBU 800 mg [facility] [place] (IBU) 800 0-27 tablet ity of mg tablet 15:31: [address] ibuprofen 2018-03 Yes IBU 800 mg [facility] [place] (IBU) 800 0-27 tablet ity of mg tablet 15:31: [address] gabapentin Yes [id number] 300mg Take 1 Univers 300 mg 9-19 capsule by ity of capsule 00:00: mouth 3 [place] 00 (three) Medical times Branch daily. adalimumab Yes inject Unive rs (HUMIRA,CF, 8- under the ity of ) 40 mg/0.4 18:17: skin. [address] adalimumab Yes inject Unive rs (HUMIRA,CF, 8 under the ity of ) 40 mg/0.4 18:17: skin. [address] adalimumab Yes inject Unive rs (HUMIRA,CF, 8 under the ity of ) 40 mg/0.4 18:17: skin. [address] adalimumab 0 Yes inject Unive rs (HUMIRA,CF, 8-27 under the ity of ) 40 mg/0.4 18:17: skin. [address] adalimumab Yes inject Unive rs (HUMIRA,CF, 8-27 under the ity of ) 40 mg/0.4 18:17: skin. [address] adalimumab Yes inject Unive rs (HUMIRA,CF, 8-27 under the ity of ) 40 mg/0.4 18:17: skin. [address] adalimumab Yes inject Unive rs (HUMIRA,CF, 8-27 under the ity of ) 40 mg/0.4 18:17: skin. [address] adalimumab Yes inject Unive rs (HUMIRA,CF, 8-27 under the ity of ) 40 mg/0.4 18:17: skin. [address] adalimumab Yes inject Unive rs (HUMIRA,CF, 8-27 under the ity of ) 40 mg/0.4 18:17: skin. [address] adalimumab Yes inject Unive rs (HUMIRA,CF, 8-27 under the ity of ) 40 mg/0.4 18:17: skin. [address] adalimumab Yes inject Unive rs (HUMIRA,CF, 8-27 under the ity of ) 40 mg/0.4 18:17: skin. [address] adalimumab Yes inject Unive rs (HUMIRA,CF, 8-27 under the ity of ) 40 mg/0.4 18:17: skin. [address] adalimumab 0 Yes inject Unive rs (HUMIRA,CF, 8-27 under the ity of ) 40 mg/0.4 18:17: skin. [address] adalimumab 0 Yes inject Unive rs (HUMIRA,CF, 8-27 under the ity of ) 40 mg/0.4 18:17: skin. [address] adalimumab 0 Yes inject Unive rs (HUMIRA,CF, 8-27 under the ity of ) 40 mg/0.4 18:17: skin. [address] adalimumab Yes inject Unive rs (HUMIRA,CF, 8-27 under the ity of ) 40 mg/0.4 18:17: skin. [address] adalimumab Yes inject Unive rs (HUMIRA,CF, 8-27 under the ity of ) 40 mg/0.4 18:17: skin. [address] adalimumab Yes inject Unive rs (HUMIRA,CF, 8-27 under the ity of ) 40 mg/0.4 18:17: skin. [address] adalimumab Yes inject Unive rs (HUMIRA,CF, 8-27 under the ity of ) 40 mg/0.4 18:17: skin. [address] adalimumab Yes inject Unive rs (HUMIRA,CF, 8-27 under the ity of ) 40 mg/0.4 18:17: skin. [address] adalimumab Yes inject Unive rs (HUMIRA,CF, 8-27 under the ity of ) 40 mg/0.4 18:17: skin. [address] adalimumab Yes inject Unive rs (HUMIRA,CF, 8-27 under the ity of ) 40 mg/0.4 18:17: skin. [address] ibuprofen Yes IBU 800 mg Un [facility] (IBU) 800 8-27 tablet ity of mg tablet 18:17: [address] oct 2018 Yes Apply to [facility] betamethaso 8-27 area(s) ity o f ne 18:17: daily. [place] [address] e 0.05 % Branch ointment adalimumab Yes inject Unive rs (HUMIRA,CF, 8-27 under the ity of ) 40 mg/0.4 18:17: skin. [address] ibuprofen Yes IBU 800 mg Un [facility] (IBU) 800 8-27 tablet ity of mg tablet 18:17: [address] oct 2018 Yes Apply to [facility] betamethaso 8-27 area(s) ity o f ne 18:17: daily. [place] dipropionat Medical e 0.05 % Branch ointment adalimumab Yes inject Unive rs (HUMIRA,CF, 8- under the ity of ) 40 mg/0.4 18:17: skin. [address] ibuprofen Yes IBU 800 mg Un [facility] (IBU) 800 - tablet ity of mg tablet 18:17: [address] oct 2018 Yes Apply to Univers betamethaso 8-27 area(s) ity o f ne 18:17: [facility] 0.05 % [place] ointment adalimumab Yes inject Unive rs (HUMIRA,CF, 8- under the ity of ) 40 mg/0.4 18:17: skin. [address] ibuprofen Yes IBU 800 mg Un [facility] (IBU) 800 - tablet ity of mg tablet 18:17: [address] oct 2018 Yes Apply to [facility] betamethaso 8- area(s) ity o f ne 18:17: daily. [place] [address] Medical e 0.05 % [place] ointment adalimumab Yes inject Unive rs (HUMIRA,CF, 8-27 under the ity of ) 40 mg/0.4 18:17: skin. [address] adalimumab Yes inject Unive rs (HUMIRA,CF, 8-27 under the ity of ) 40 mg/0.4 18:17: skin. [address] esomeprazol Yes [id number] TAKE 1 Univers e 40 mg 8-27 CAPSULE ity of capsule 00:00: DAILY WITH [facility] esomeprazol Yes [id number] TAKE 1 Univers e 40 mg 8-27 CAPSULE ity of capsule 00:00: DAILY WITH [place] [facility] esomeprazol Yes [id number] TAKE 1 Univers e 40 mg 8-27 CAPSULE ity of capsule 00:00: DAILY WITH [facility] gabapentin 2019- No [id number] 300mg Take 1 Univers 300 mg 8-27 - capsule by ity of capsule 00:00: 04:59 mouth 3 [place] 00 :00 (three) Medical times Branch daily for 30 days. gabapentin 2019- No [id number] 300mg Take 1 Univers 300 mg 11-05 capsule by ity of capsule 00:00: 04:59 mouth 3 [place] 00 :00 (three) Medical times Branch daily for 30 days. gabapentin 2019- No [id number] 300mg Take 1 Univers 300 mg 11-05 capsule by ity of capsule 00:00: 00:00 mouth 3 [place] 00 :00 (three) Medical times Branch daily for 30 days. adalimumab Yes inject Unive rs (HUMIRA,CF, 7-11 under the ity of ) 40 mg/0.4 16:14: skin. [address] adalimumab Yes inject Unive rs (HUMIRA,CF, 7-11 under the ity of ) 40 mg/0.4 16:14: skin. [address] Branch oct 2018 Yes Apply to [facility] betamethaso 7-11 area(s) ity o f ne 16:09: daily. [place] dipropionat 41 Medical e 0.05 % Branch ointment oct 2018 Yes Apply to [facility] betamethaso 7-11 area(s) ity o f ne 16:09: daily. [place] dipropionat 41 Medical e 0.05 % Branch ointment ketorolac 2018- Yes [id number] 10mg Take 1 Un jole[facility] 10 mg 7-11 tablet by ity of tablet 00:00: mouth [place] 00 every 6 Medical (six) Branch hours as needed for Pain (scale 4-6). ketorolac 2018- Yes [id number] 10mg Take 1 Un jole[facility] 10 mg 7-11 tablet by ity of tablet 00:00: mouth [place] 00 every 6 Medical (six) Branch hours as needed for Pain (scale 4-6). ketorolac 2019-0 Yes [id number] 10mg Take 1 Un [facility] 10 mg 7-11 tablet by ity of tablet 00:00: mouth [place] 00 every 6 Medical (six) Branch hours as needed for Pain (scale 4-6). ketorolac 2018-0 Yes [id number] 10mg Take 1 Un joleen 10 mg 7-11 tablet by ity of tablet 00:00: mouth [place] 00 every 6 Medical (six) Branch hours as needed for Pain (scale 4-6). ketorolac 2019-0 Yes [id number] 10mg Take 1 Un [facility] 10 mg 7-11 tablet by ity of tablet 00:00: mouth [place] 00 every 6 Medical (six) Branch hours as needed for Pain (scale 4-6). ketorolac 2019-0 Yes [id number] 10mg Take 1 Un [facility] 10 mg 7-11 tablet by ity of tablet 00:00: mouth [place] 00 every 6 Medical (six) Branch hours as needed for Pain (scale 4-6). ketorolac 2019-0 Yes [id number] 10mg Take 1 [facility] 10 mg 7-11 tablet by ity of tablet 00:00: mouth [place] 00 every 6 Medical (six) Branch hours as needed for Pain (scale 4-6). ketorolac 2019-0 Yes [id number] 10mg Take 1 Un [facility] 10 mg 7-11 tablet by ity of tablet 00:00: mouth [place] 00 every 6 Medical (six) Branch hours as needed for Pain (scale 4-6). ketorolac 2019-0 Yes [id number] 10mg Take 1 Un [facility] 10 mg 7-11 tablet by ity of tablet 00:00: mouth [place] 00 every 6 Medical (six) Branch hours as needed for Pain (scale 4-6). ketorolac 2019-0 Yes [id number] 10mg Take 1 Un j[facility] 10 mg 7-11 tablet by ity of tablet 00:00: mouth [place] 00 every 6 Medical (six) Branch hours as needed for Pain (scale 4-6). ketorolac 2019-0 Yes [id number] 10mg Take 1 Un [facility] 10 mg 7-11 tablet by ity of tablet 00:00: mouth [place] 00 every 6 Medical (six) Branch hours as needed for Pain (scale 4-6). ketorolac 2019-0 Yes [id number] 10mg Take 1 Un [facility] 10 mg 7-11 tablet by ity of tablet 00:00: mouth [place] 00 every 6 Medical (six) Branch hours as needed for Pain (scale 4-6). ketorolac 2019-0 Yes [id number] 10mg Take 1 Un [facility] 10 mg 7-11 tablet by ity of tablet 00:00: mouth [place] 00 every 6 Medical (six) Branch hours as needed for Pain (scale 4-6). ketorolac 2019-0 Yes [id number] 10mg Take 1 Un [facility] 10 mg 7-11 tablet by ity of tablet 00:00: mouth [place] 00 every 6 Medical (six) Branch hours as needed for Pain (scale 4-6). ketorolac 2019-0 Yes [id number] 10mg Take 1 Un [facility] 10 mg 7-11 tablet by ity of tablet 00:00: mouth [place] 00 every 6 Medical (six) Branch hours as needed for Pain (scale 4-6). ketorolac 2019-0 Yes [id number] 10mg Take 1 Un [facility] 10 mg 7-11 tablet by ity of tablet 00:00: mouth [place] 00 every 6 Medical (six) Branch hours as needed for Pain (scale 4-6). ketorolac 2019-0 Yes [id number] 10mg Take 1 Un joleen 10 mg 7-11 tablet by ity of tablet 00:00: mouth [place] 00 every 6 Medical (six) Branch hours as needed for Pain (scale 4-6). ketorolac 2019-0 Yes [id number] 10mg Take 1 Un joleen 10 mg 7-11 tablet by ity of tablet 00:00: mouth [place] 00 every 6 Medical (six) Branch hours as needed for Pain (scale 4-6). ketorolac 2019-0 Yes [id number] 10mg Take 1 Un j[facility]en 10 mg 7-11 tablet by ity of tablet 00:00: mouth [place] 00 every 6 Medical (six) Branch hours as needed for Pain (scale 4-6). ketorolac 2019-0 Yes [id number] 10mg Take 1 Un [facility]en 10 mg 7-11 tablet by ity of tablet 00:00: mouth [place] 00 every 6 Medical (six) Branch hours as needed for Pain (scale 4-6). ketorolac 2019-0 Yes [id number] 10mg Take 1 Un j[facility]en 10 mg 7-11 tablet by ity of tablet 00:00: mouth [place] 00 every 6 Medical (six) Branch hours as needed for Pain (scale 4-6). ketorolac 2019-0 Yes [id number] 10mg Take 1 Un j[facility] 10 mg 7-11 tablet by ity of tablet 00:00: mouth [place] 00 every 6 Medical (six) Branch hours as needed for Pain (scale 4-6). ketorolac 2019-0 Yes [id number] 10mg Take 1 Un [facility] 10 mg 7-11 tablet by ity of tablet 00:00: mouth [place] 00 every 6 Medical (six) Branch hours as needed for Pain (scale 4-6). ketorolac 2019-0 Yes [id number] 10mg Take 1 Un [facility] 10 mg 7-11 tablet by ity of tablet 00:00: mouth [place] 00 every 6 Medical (six) Branch hours as needed for Pain (scale 4-6). ketorolac 2019-0 Yes [id number] 10mg Take 1 Un [facility] 10 mg 7-11 tablet by ity of tablet 00:00: mouth [place] 00 every 6 Medical (six) Branch hours as needed for Pain (scale 4-6). ketorolac 2019-0 Yes [id number] 10mg Take 1 Un [facility] 10 mg 7-11 tablet by ity of tablet 00:00: mouth [place] 00 every 6 Medical (six) Branch hours as needed for Pain (scale 4-6). ketorolac 2019-0 Yes [id number] 10mg Take 1 Un [facility] 10 mg 7-11 tablet by ity of tablet 00:00: mouth [place] 00 every 6 Medical (six) Branch hours as needed for Pain (scale 4-6). ketorolac 2019-0 Yes [id number] 10mg Take 1 Un j[facility]en 10 mg 7-11 tablet by ity of tablet 00:00: mouth [place] 00 every 6 Medical (six) Branch hours as needed for Pain (scale 4-6). ketorolac 2019-0 Yes [id number] 10mg Take 1 Un [facility]en 10 mg 7-11 tablet by ity of tablet 00:00: mouth [place] 00 every 6 Medical (six) Branch hours as needed for Pain (scale 4-6). ibuprofen 2019-0 Yes IBU 800 mg [facility] (IBU) 800 5-19 tablet ity of mg tablet 15:22: [place] [address] Medical Branch ibuprofen 2019-0 Yes IBU 800 mg Un j[facility] (IBU) 800 5-19 tablet ity of mg tablet 15:22: [place] [address] Medical Branch ESOMEPRAZOL 2019-0 Yes [id number] TAKE 1 Univers E 40 mg 3-18 CAPSULE ity of capsule 00:00: DAILY [place] 00 BREAKFAST Medical Branch ESOMEPRAZOL Yes [id number] TAKE 1 Univers E 40 mg 3-18 CAPSULE ity of capsule 00:00: DAILY [place] 00 BREAKFAST Medical Branch ESOMEPRAZOL 2019- No [id number] TAKE 1 Univers E 40 mg 3-18 08-27 CAPSULE ity of capsule 00:00: 00:00 DAILY WITH [place] 00 :00 BREAKFAST Medical Branch ESOMEPRAZOL 2019- No [id number] TAKE 1 Univers E 40 mg 3-18 08-27 CAPSULE ity of capsule 00:00: 00:00 DAILY WITH [place] 00 :00 BREAKFAST Medical Branch acetaminoph Yes TAKE 1 Univ ers en-codeine 4-02 TABLET BY ity of 300-30 mg 00:00: MOUTH [place] tablet 00 TWICE A Medical DAY Branch acetaminoph [id number] Yes TAKE 1 Univ ers en-codeine 4-02 TABLET BY ity of 300-30 mg 00:00: MOUTH [place] tablet 00 TWICE A Medical DAY Branch acetaminoph [id number] Yes TAKE 1 Univ ers en-codeine 4-02 TABLET BY ity of 300-30 mg 00:00: MOUTH [place] tablet 00 TWICE A Medical DAY Branch acetaminoph 2018-0 Yes TAKE 1 Univ ers en-codeine 4-02 TABLET BY ity of 300-30 mg 00:00: MOUTH [place] tablet 00 TWICE A Medical DAY Branch acetaminoph 2018-0 Yes TAKE 1 Univ ers en-codeine 4-02 TABLET BY ity of 300-30 mg 00:00: MOUTH [place] tablet 00 TWICE A Medical DAY Branch acetaminoph 2018-0 Yes TAKE 1 Univ ers en-codeine 4-02 TABLET BY ity of 300-30 mg 00:00: MOUTH [place] tablet 00 TWICE A Medical DAY Branch acetaminoph 2018-0 Yes TAKE 1 Univ ers en-codeine 4-02 TABLET BY ity of 300-30 mg 00:00: MOUTH [place] tablet 00 TWICE A Medical DAY Branch acetaminoph 2018-0 Yes TAKE 1 Univ ers en-codeine 4-02 TABLET BY ity of 300-30 mg 00:00: MOUTH [place] tablet 00 TWICE A Medical DAY Branch acetaminoph 2018-0 Yes TAKE 1 Univ ers en-codeine 4-02 TABLET BY ity of 300-30 mg 00:00: MOUTH [place] tablet 00 TWICE A Medical DAY Branch acetaminoph Yes TAKE 1 Univ ers en-codeine 4-02 TABLET BY ity of 300-30 mg 00:00: MOUTH [place] tablet 00 TWICE A Medical DAY Branch acetaminoph 0 Yes TAKE 1 Univ ers en-codeine 4-02 TABLET BY ity of 300-30 mg 00:00: MOUTH [place] tablet 00 TWICE A Medical DAY Branch acetaminoph Yes TAKE 1 Univ ers en-codeine 4-02 TABLET BY ity of 300-30 mg 00:00: MOUTH [place] tablet 00 TWICE A Medical DAY Branch acetaminoph Yes TAKE 1 Univ ers en-codeine 4-02 TABLET BY ity of 300-30 mg 00:00: MOUTH [place] tablet 00 TWICE A Medical DAY Branch acetaminoph Yes TAKE 1 Univ ers en-codeine 4-02 TABLET BY ity of 300-30 mg 00:00: MOUTH [place] tablet 00 TWICE A Medical DAY Branch acetaminoph Yes TAKE 1 Univ ers en-codeine 4-02 TABLET BY ity of 300-30 mg 00:00: MOUTH [place] tablet 00 TWICE A Medical DAY Branch acetaminoph Yes TAKE 1 Univ ers en-codeine 4-02 TABLET BY ity of 300-30 mg 00:00: MOUTH [place] tablet 00 TWICE A Medical DAY Branch acetaminoph 0 Yes TAKE 1 Univ ers en-codeine 4-02 TABLET BY ity of 300-30 mg 00:00: MOUTH [place] tablet 00 TWICE A Medical DAY Branch acetaminoph 0 Yes TAKE 1 Univ ers en-codeine 4-02 TABLET BY ity of 300-30 mg 00:00: MOUTH [place] tablet 00 TWICE A Medical DAY Branch acetaminoph 0 Yes TAKE 1 Univ ers en-codeine 4-02 TABLET BY ity of 300-30 mg 00:00: MOUTH [place] tablet 00 TWICE A Medical DAY Branch acetaminoph 0 Yes TAKE 1 Univ ers en-codeine 4-02 TABLET BY ity of 300-30 mg 00:00: MOUTH [place] tablet 00 TWICE A Medical DAY Branch acetaminoph 0 Yes TAKE 1 Univ ers en-codeine 4-02 TABLET BY ity of 300-30 mg 00:00: MOUTH [place] tablet 00 TWICE A Medical DAY Branch acetaminoph 2018-0 Yes TAKE 1 Univ ers en-codeine 4-02 TABLET BY ity of 300-30 mg 00:00: MOUTH [place] tablet 00 TWICE A Medical DAY Branch acetaminoph Yes TAKE 1 Univ ers en-codeine 4-02 TABLET BY ity of 300-30 mg 00:00: MOUTH [place] tablet 00 TWICE A Medical DAY Branch acetaminoph Yes TAKE 1 Univ ers en-codeine 4-02 TABLET BY ity of 300-30 mg 00:00: MOUTH [place] tablet 00 TWICE A Medical DAY Branch acetaminoph Yes TAKE 1 Univ ers en-codeine 4-02 TABLET BY ity of 300-30 mg 00:00: MOUTH [place] tablet 00 TWICE A Medical DAY Branch acetaminoph Yes TAKE 1 Univ ers en-codeine 4-02 TABLET BY ity of 300-30 mg 00:00: MOUTH [place] tablet 00 TWICE A Medical DAY Branch acetaminoph Yes TAKE 1 Univ ers en-codeine 4-02 TABLET BY ity of 300-30 mg 00:00: MOUTH [place] tablet 00 TWICE A Medical DAY Branch acetaminoph Yes TAKE 1 Univ ers en-codeine 4-02 TABLET BY ity of 300-30 mg 00:00: MOUTH [place] tablet 00 TWICE A Medical DAY Branch acetaminoph Yes TAKE 1 Univ ers en-codeine 4-02 TABLET BY ity of 300-30 mg 00:00: MOUTH [place] tablet 00 TWICE A Medical DAY Branch acetaminoph Yes TAKE 1 Univ ers en-codeine 4-02 TABLET BY ity of 300-30 mg 00:00: MOUTH [place] tablet 00 TWICE A Medical DAY Branch Vital Signs Vital Name Observation Time Observation Value Comments Source Systolic blood 2019-09-03 16:10:00 113 mm[Hg] Univer sity of pressure [facility] Diastolic blood 2019-09-03 16:10:00 85 mm[Hg] Unive rsity of pressure [facility] Heart rate 2019-09-03 16:10:00 84 /min [facility] Body temperature 2019-09-03 16:10:00 36.83 [place] [facility] Respiratory rate 2019-09-03 16:10:00 18 /min [facility] Body height 2019-09-03 16:10:00 188 cm [facility] Branch Body weight 2019-09-03 16:10:00 111.131 kg [facility] [place] [facility] BMI 2019-09-03 16:10:00 31.46 kg/m2 [facility] [place] [facility] Oxygen saturation in 2019-09-03 16:10:00 100 /min University of Arterial blood by [facility] Pulse oximetry Branch Systolic blood 2019-09-03 16:10:00 113 mm[Hg] Univer sity of pressure [place] [facility] Diastolic blood 2019-09-03 16:10:00 85 mm[Hg] Unive rsity of pressure [place] [facility] Heart rate 2019-09-03 16:10:00 84 /min [facility] [place] [facility] Body temperature 2019-09-03 16:10:00 36.83 [place] [facility] ers[facility] [place] [facility] Respiratory rate 2019-09-03 16:10:00 18 /min Univ ersity [facility] [place] [facility] Body height 2019-09-03 16:10:00 188 cm [facility] [place] [facility] Body weight 2019-09-03 16:10:00 111.131 kg [facility] [place] [facility] BMI 2019-09-03 16:10:00 31.46 kg/m2 [facility] [place] [facility] Oxygen saturation in 2019-09-03 16:10:00 100 /min University of Arterial blood by [facility] Pulse oximetry Branch Systolic blood 2018-11-05 18:15:00 132 mm[Hg] Univer sity of pressure [place] [facility] Diastolic blood 2018-11-05 18:15:00 80 mm[Hg] Unive rsity of pressure [place] [facility] Body weight 2018-11-05 18:15:00 103.874 kg [facility] [place] [facility] BMI 2018-11-05 18:15:00 29.40 kg/m2 [facility] [place] [facility] Procedures Procedure Date / Time Performing Clinician Source Performed MEDICATION CORRESPONDENCE 2018-10-23 05:01:00 Doctor Unassigned, [facility] [place] [facility] [place] [id number] CONSENT 2018-03-14 06:01:00 Doctor Unassigned, [facility] Name Medical Branch Encounters Start End Encounter Admission Attending Care Care Encounter Source Date/Time Date/Time Type Type Clinicians Facility Department ID 2020-08-22 2020-08-22 DANA Angel [id number] [id number] Univers 00:00:00 00:00:00 [facility] [id number] it y of [place] [id number] [place] Professio [phone] [address] Office [address] [facility] 2020-08-22 2020-08-22 [facility] [id number] 00:00:00 00:00:00 [facility] [id number] [place] [id number] Professio [phone] nal [facility] Office [facility] 2020-05-27 2020-05-27 [facility] [id number] Univers 00:00:00 00:00:00 Outreach Konstantin PRIMARY [id number] i ty [id number] [phone] [address] 2020-05-27 2020-05-27 [facility] 1.2.840.114 [id number] 00:00:00 00:00:00 Outreach Konstantin PRIMARY [id number] [place] CARE [id number] PAVILLION [phone] [facility] 2020-04-19 2020-04-19 Outpatient R [facility] [id number] Univers 13:10:00 13:10:00 HSAD [id number] ity of [facility] 2020-03-26 2020-03-26 [facility] 1.2.840.114 [id number] Univers 00:00:00 00:00:00 [facility] [id number] it y of [place] [id number] [place] Professio [phone] [address] Office [address] [facility] 2020-03-26 2020-03-26 [facility] 1.2.840.114 [id number] 00:00:00 00:00:00 [facility] [id number] [place] [id number] Professio [phone] [place] [address] [address] 2020-03-02 2020-03-02 Saige Rhodes [facility] 1.2.840.114 [id number] Univers 00:00:00 00:00:00 [facility] [id number] it y of [place] [id number] [place] Professio [phone] [address] Office [address] [facility] 2020-03-02 2020-03-02 Saige Rhodes [facility] 1.2.840.114 [id number] 00:00:00 00:00:00 [facility] [id number] [place] [id number] Professio [phone] [place] [address] [address] 2019-12-29 2019-12-29 Saige Rhodes [facility] 1.2.840.114 [id number] Univers 00:00:00 00:00:00 [facility] [id number] it y of [place] [id number] [place] Professio [phone] [address] Office [address] [facility] 2019-12-29 2019-12-29 Saige Rhodes [facility] 1.2.840.114 [id number] 00:00:00 00:00:00 [facility] [id number] [place] [id number] Professio [phone] [place] [address] [address] 2019-12-12 2019-12-12 Outpatient RILEY, [facility] [id number] Univers 15:20:00 15:20:00 MARLY [id number] ity of [facility] 2019-12-05 2019-12-05 Saige Rhodes [facility] 1.2.840.114 [id number] Univers 00:00:00 00:00:00 [facility] [id number] it y of [place] [id number] [place] Professio [phone] [address] Office [address] [facility] 2019-12-05 2019-12-05 Saige Rhodes [facility] 1.2.840.114 [id number] 00:00:00 00:00:00 [facility] [id number] [place] [id number] Professio [phone] [place] [address] Office [facility] 2019-11-12 2019-11-12 Refill Doctor [facility] 1.2.840.114 [id number] Univers 00:00:00 00:00:00 Unassigned, Health [id number] ity of [place] [id number] [place] Professio [phone] [address] 2019-11-12 2019-11-12 Refill Doctor [facility] 1.2.840.114 [id number] 00:00:00 00:00:00 Unassigned, Health [id number] [place] [id number] Professio [phone] [address] 2019-09-11 2019-09-11 Patient Carmelo, [facility] 1.2.840.114 [id number] Univers 00:00:00 00:00:00 Secure Msg Den[place] [id number] it[place] [id number] Profess[place] [phone] [address] 2019-09-11 2019-09-11 Patient Rhodes, [facility] 1.2.840.114 [id number] 00:00:00 00:00:00 Secure Msg Deny [place] [id number] [place] [id number] Professio [phone] [address] 2019-09-05 2019-09-05 Patient Rhodes, [facility] 1.2.840.114 [id number] 00:00:00 00:00:00 Secure Msg Deny [place] [id number] [place] [id number] Professio [phone] [address] 2019-09-05 2019-09-05 Patient Rhodes, [facility] 1.2.840.114 [id number] Univers 00:00:00 00:00:00 Secure Msg Deny [place] [id number] ity [id number] [phone] De dical [address] 2019-09-04 2019-09-04 Telephone [place] HAYDE 1.2.840.114 [id number] 00:00:00 00:00:00 Pretty stubbs [id number] [facility] [id number] [phone] [facility] 2019-09-04 2019-09-04 Telephone [place] HAYDE 1.2.840.114 [id number] [facility] 00:00:00 00:00:00 Pretty stubbs [id number] ity of [facility] [id number] Davey as [phone] [address] 2019-09-03 2019-09-03 Urgent Pob1, Acute [facility] 1.2.840.114 [id number] 10:25:23 10:45:23 [facility] [id number] [place] [id number] Professio [phone] [place] [address] Office [facility] 2019-09-03 2019-09-03 Urgent Pob1, Acute Care [facility] 1. 2.840.114 [id number] [facility] 10:25:23 10:45:23 [facility] Hayde Gonsalves [facility] 350.1.13.10 ity [facility] [id number] [place] Professio [phone] De dical [address] 2019-09-03 2019-09-03 Outpatient R [facility] [id number] Univers 10:40:00 10:40:[id number] [place] [address] 2019-09-03 2019-09-03 Outpatient R [facility] [id number] Univers 10:40:00 10:40:00 HAYDE [facility] 2019-08-24 2019-08-24 [facility] 1.2.840.114 [id number] 00:00:00 00:00:00 Deny Health 350.1.13.10 [place] [id number] Professio [phone] [place] [address] Office [facility] 2019-08-24 2019-08-24 [facility] 1.2.840.114 [id number] Univers 00:00:00 00:00:00 Deny Health 350.1.13.10 it y of [place] 4.2.7.2.686 [place] Professio [phone] [address] Office Building One 2019-08-01 2019-08-01 Refill Carmelo, [facility] 1.2.840.114 [id number] 00:00:00 00:00:00 Deny Health 350.1.13.10 [place] 4.2.7.2.686 Professio [phone] [place] [address] Office [facility] 2019-08-01 2019-08-01 Refill Carmelo, [facility] 1.2.840.114 [id number] Univers 00:00:00 00:00:00 Deny Health 350.1.13.10 it y of [place] 4.2.7.2.686 [place] Professio [phone] [address] Office [facility] One 2019-08-01 2019-08-01 Telephone Carmelo, [facility] [id number] [facility] 00:00:00 00:00:00 Deny Health 350.1.13.10 it y of [place] 4.2.7.2.686 [place] Professio [phone] [address] Office Building One 2019-08-01 2019-08-01 Telephone Carmelo, [facility] [id number] 00:00:00 00:00:00 Deny Health 350.1.13.10 [place] 4.2.7.2.686 Professio [phone] [place] [address] Office [facility] 2019-07-29 2019-07-29 Refill Doctor [facility] 1.2.840.114 [id number] Univers 00:00:00 00:00:00 Unassigned, Health 350.1.13.10 ity of [place] 4.2.7.2.686 [place] Professio [phone] [address] Office [facility] One 2019-07-29 2019-07-29 Refill Doctor [facility] 1.2.840.114 [id number] 00:00:00 00:00:00 Unassigned, Health 350.1.13.10 [place] 4.2.7.2.686 Professio [phone] [address] 2019-07-09 2019-07-09 Telephone Carmelo [facility] [id number] Univers 00:00:00 00:00:00 Deny Leonardo 350.1.13.10 i [place] of [place].2.[place] [phone] [address] 2019-07-09 2019-07-09 [facility] [id number] 00:00:00 00:00:00 Deny Leonardo 350.1.13.10 [place] 4.2.7.2.686 Professio [phone] [address] 2019-06-30 2019-06-30 [facility] 1.2.840.114 [id number] Univers 00:00:00 00:00:00 Secure Msg Deny Health 350.1.13.10 ity of [place] 4.2.7.2.686 [place] Professio [phone] [address] 2019-06-30 2019-06-30 [facility] 1.2.840.114 [id number] 00:00:00 00:00:00 Secure Msg Deny Health 350.1.13.10 [place] 4.2.7.2.686 Professio [phone] [address] 2019-06-22 2019-06-22 Refill Carmelo [facility] 1.2.840.114 [id number] Univers 00:00:00 00:00:00 Deny Health 350.1.13.10 it y of [place] 4.2.7.2.686 [place] Professio [phone] [address] Office [facility] 2019-06-03 2019-06-03 Patient Carmelo [facility] 1.2.840.114 [id number] Univers 00:00:00 00:00:00 Secure Msg Deny Health 350.1.13.10 ity of [place] 4.2.7.2.686 [place] Professio [phone] De dical nal [address] [place] [address] Office Building [facility] 2019-05-29 2019-05-29 Saige Rhodes [facility] 1.2.840.114 [id number] Univers 00:00:00 00:00:00 Deny Health 350.1.13.10 it y of [place] 4.2.7.2.686 [place] Professio [phone] [facility] nal [address] [place] [address] Office Building One 2019-05-05 2019-05-05 [facility] 1.2.840.114 [id number] Univers 00:00:00 00:00:00 Deny Health 350.1.13.10 it y of [place] 4.2.7.2.686 [place] Professio [phone] [facility] [address] [place] [address] Office Building One 2019-04-07 2019-04-07 [facility] 1.2.840.114 [id number] Univers 00:00:00 00:00:00 [facility] 350.1.13.10 it y of [place] 4.2.7.2.686 [place] Professio [phone] [facility] nal [address] [place] [address] Office Building One 2019-01-05 2019-01-05 Outpatient R TITO [facility] [id number] Univers 10:30:00 11:53:02 GIN [facility] 2018-11-27 2018-11-27 [facility] 1.2.840.114 [id number] Univers 00:00:00 00:00:00 Deny Health 350.1.13.10 it y of [place] 4.2.7.2.686 [place] Professio [phone] [facility] nal [address] [place] [address] Office Building One 2018-11-05 2018-11-05 Office Grace [facility] 1.2.840.114 [id number] Univers 12:58:34 13:31:40 Visit [facility] 350.1.13.10 it y of [place] 4.2.7.2.686 [place] Professio [phone] [facility] nal [address] [place] [address] Office Building One 2018-11-04 2018-11-04 Michele Rhodes [facility] [id number] Univers 00:00:00 00:00:00 [facility] 350.1.13.10 it y of [place] 4.2.7.2.686 [place] Professio [phone] [address] Office Building One 2018-10-29 2018-10-29 [facility] 1.2.840.114 [id number] Univers 00:00:00 00:00:00 Deny Health 350.1.13.10 it y of [place] 4.2.7.2.686 [place] Professio [phone] [address] Office Building One 2018-10-23 2018-10-23 Orders Doctor HAYDE 1.2.840.114 [id number] Univers 00:00:00 00:00:00 Only Unassigned, DEBRA 350.1.13.10 ity of [place] [facility] 4.2.7.2.686 [place] as [phone] [place] [address] [place] 2018-09-19 2018-09-[address] [facility] E[facility] [id number] Univers 10:28:05 11:25:00 VASQUEZ matthews [facility] 2018-03-14 2018-03-14 Orders Doctor HAYDE 1.2.840.114 [id number] Univers 00:00:00 00:00:00 Only Unassigned, DEBRA 350.1.13.10 ity of [place] [facility] 4.2.7.2.686 [place] as [phone] [address] Results This patient has no known results.
[2021-03-07 06:29] LABS: Absolute Lymphocytes (CBC) 0.9 K/uL (0.7-4.9); Hematocrit 40.8 % (39.6-49.0); Lymphocytes % 5.5 % (15.3-44.8); RBC Red Blood Cell Count 5.76 M/uL (4.33-5.43)
[2021-03-07 06:45] LABS: Albumin 4.1 g/dL (3.4-5.0); Bilirubin Direct 0.1 mg/dL (0-0.2); Bilirubin Total 0.6 mg/dL (0.2-1.0); Potassium 4.1 mmol/L (3.5-5.1); Protein, Total 8.9 g/dL (6.4-8.2)
[2021-03-07 07:26] LABS: SARS-COV-2 RT PCR NEGATIVE (NEGATIVE)
--- NOTE | 2021-03-07 08:21 | RAD REPORT ---
EXAM DESCRIPTION: RAD - Chest Single View - 03/07/2021 5:55 am CLINICAL HISTORY: CONGESTION COMPARISON: October 27 imaging TECHNIQUE: AP portable chest image was obtained 03/07/2021 5:55 am . FINDINGS: No peripheral mass or consolidation. Interstitial pattern is not clearly different from th e prior examination. Trachea is midline. Large hiatal hernia again noted in the midline lower chest. Heart and vasculature are normal. No measurable pleural effusion and no pneumothorax. No acute bony abnormality seen. No a cute aortic findings suspected. IMPRESSION: No acute cardiopulmonary process. No significant change from comparison study.
--- NOTE | 2021-03-07 08:25 | RAD REPORT ---
EXAM DESCRIPTION: CT - Chest For Pe Angio - 03/07/2021 8:08 am CLINICAL HISTORY: Chest pain;Cough COMPARISON: Chest For Pe Angio dated 08/25/2020; Chest Single View dated 03/07/2021 TECHNIQUE: Dynamically enhanced 3 mm thick images of the chest were obtained during administration o f approximately 150mL Isovue 370 IV contrast. Coronal and oblique MIP reconstruction images were gene rated and reviewed. Exam utilizes a protocol to evaluate the pulmonary arterial tree. All CT scans are performed using dose optimization technique as appropriate and may include automated exposure control or mA/KV adjustment according to patient size. FINDINGS: No pulmonary emboli are identified. The aorta as imaged shows no acute or suspicious finding. No pericardial thickening or effusion. No infiltrate or mass in the lung parenchyma. No pleural effusion or pleural thickening. No mediastinal or hilar suspicious masses. No chest wall masses or abnormal axillary lymphadenopathy. Patient has a large hiatal hernia with approximately 60-70% of the stomach intrathoracic. There is fl uid retained within a non dilated esophagus which could be reflux related to the hiatal hernia. No ga stric wall thickening or mass seen. No wall thickening or mass of the esophagus noted. IMPRESSION: No pulmonary emboli identified. No acute finding identifiable. Patient has a large hiatal hernia with approximately 60-70% of the stomach intrathoracic.No acute fin ding of the stomach or esophagus identifiable.
[2021-03-07] MEDS ORDERED: HYDROCODONE/CHLORPHEN 5 ML/OSYR ONE (08:30)
[2021-03-07] MEDS ORDERED: NA CHLORIDE 0.9% 1,000 ML ONE (08:30)
[2021-03-07 09:04] LABS: Protime INR 1.09
--- NOTE | 2021-03-07 10:43 | ER ---
Nurse's Notes [facility] Name: Delmer Doan Age: 50 yrs Sex: Male : 1970 Arrival Date: 03/07/2021 Time: 04:11 Bed 20 Private MD: Diagnosis: Acute upper respiratory infection, unspecified;Vomiting;Diarrhea, unspecified;Hiatal Hernia Presentation: 03/07 05:09 Chief complaint: Patient states: cough, chest congestion, body aches, diarrhea and iw vomiting last night , has had pneumonia in the past and feels similar. 05:09 Method Of Arrival: Ambulatory iw 05:09 Acuity: ANITHA 3 iw 05:09 Coronavirus screen: Client presents with at least one sign or symptom that may indicate iw coronavirus-19. Ebola Screen: Patient negative for fever greater than or equal to 101.5 degrees Fahrenheit, and additional compatible Ebola Virus Disease symptoms Patient denies exposure to infectious person. Patient denies travel to an Ebola-affected area in the 21 days before illness onset. No symptoms or risks identified at this time. Risk Assessment: Do you want to hurt yourself or someone else? Patient reports no desire to harm self or others. Onset of symptoms was March 06, 2021. 09:31 Initial Sepsis Screen: Does the patient meet any 2 criteria? No. Patient's initial eo2 sepsis screen is negative. Does the patient have a suspected source of infection? No. Patient's initial sepsis screen is negative. Historical: - Allergies: 05:36 No Known Allergies; iw - Home Meds: 05:39 atorvastatin 40 mg oral tab 1 tab once daily [Active]; Rhododendron 5-325 mg Oral tab twice a iw day [Active]; pregabalin 100 mg Oral cap 1 cap 2 times per day [Active]; - PMHx: 05:35 Arthritis; Hyperlipidemia; iw - PSHx: 05:36 None; iw - Immunization history:: Client reports receiving the [place] \\T\\ Steven single-dose vaccine. - Social history:: Smoking status: Patient reports the use of cigarette tobacco products, smokes one pack cigarettes per day. Screenin:24 Abuse screen: Denies threats or abuse. Nutritional screening: No deficits noted. eo2 Tuberculosis screening: No symptoms or risk factors identified. Fall Risk None identified. Assessment: 07:37 General: Appears in no apparent distress. comfortable, Behavior is calm, cooperative. eo2 Pain: Complains of pain in pt presently reports chronic b/l leg pain, denies need for pain medication at this time Pain does not radiate. Pain began chronic. Neuro: No deficits noted. Denies dizziness, headache. Cardiovascular: Reports chest pain, shortness of breath, vomiting. Cardiovascular: Reports cough since yesterday associated with CP/SOB when coughing. Respiratory: Reports cough that is productive with clear fluids, coughing leads to vomiting per pt Breath sounds are clear bilaterally. GI: Bowel sounds present X 4 quads. Reports nausea, vomiting, reports these symptoms have improved. : No deficits noted. No signs and/or symptoms were reported regarding the genitourinary system. EENT: No signs and/or symptoms were reported regarding the EENT system. Musculoskeletal: Reports pain in b/l LE, chronic. 11:58 Reassessment: Upon discharge, pt noted with 100.6 oral temp, Miguel CHOWDHURY made aware. eo2 Order placed for tylenol, admin medication and discharge per provider. Vital Signs: 05:38 BP 119 / 90; Pulse 96; Resp 18; Temp 97.3; Pulse Ox 100% on R/A; Weight 113.4 kg; iw Height 6 ft. 2 in. (187.96 cm); 07:24 BP 125 / 94 LA Sitting (auto/lg); Pulse 92; Resp 17 S; Temp 98.8(O); Pulse Ox 100% on eo2 R/A; Pain 4/10; 09:00 BP 97 / 63; Pulse 76; Resp 15; Pulse Ox 98% ; eo2 10:00 BP 128 / 98; Pulse 96; Resp 21; Pulse Ox 100% ; Pain 3/10; eo2 11:00 BP 140 / 93; Pulse 92; Resp 18; Pulse Ox 98% ; eo2 11:55 BP 138 / 85; Pulse 90; Resp 17; Temp 100.6(O); Pulse Ox 99% ; Pain 2/10; eo2 05:38 Body Mass Index 32.10 (113.40 kg, 187.96 cm) iw Vitals: 07:24 Cardiac Rhythm Assessment Regular Sinus rhythm. eo2 ED Course: 04:11 Patient arrived in ED. ja2 05:09 Triage completed. iw 05:37 Arm band placed on. iw 05:55 CXR XRAY In Process Unspecified. EDMS 06:00 Initial lab(s) drawn, by me. Inserted saline lock: 20 gauge in left antecubital area, kj1 using aseptic technique. Blood collected. 06:26 COVID-19/FLU A+B (Document "Date of Onset" if Symptomatic) Sent. kj1 07:23 Miguel Yoo NP is PHCP. pm1 07:23 Brijesh Taylor MD is Attending Physician. pm1 07:24 Gila Spencer, JAY JAY is Primary Nurse. eo2 07:24 Patient has correct armband on for positive identification. Bed in low position. Call eo2 light in reach. Side rails up X 1. Adult w/ patient. front desk monitor on. Pulse ox on. NIBP on. Door closed. Noise minimized. Warm blanket given. 07:24 No provider procedures requiring assistance completed. Patient maintains SpO2 eo2 saturation greater than 95% on room air. 07:[address] eo2 08:08 CT Chest For PE Angio In Process Unspecified. EDMS 11:50 PT-INR Sent. eo2 11:50 Troponin (emerg Dept Use Only) Sent. eo2 12:06 IV discontinued, intact. eo2 Administered Medications: 08:34 Drug: NS 0.9% 1000 ml Route: IV; Rate: 1000 ml; Site: left antecubital; eo2 11:00 Follow up: IV Status: Completed infusion; IV Intake: 1000ml eo2 08:34 Drug: Tussionex Pennkinetic ER (chlorpheniramine-hydrocodone) Suspension 5 ml Route: PO;eo2 09:30 Follow up: Response: No adverse reaction eo2 11:59 Drug: Tylenol 1000 mg Route: PO; eo2 12:06 Follow up: Response: No adverse reaction eo2 Intake: 11:00 IV: 1000ml; Total: 1000ml. eo2 Outcome: 10:42 Discharge ordered by . pm1 12:06 Discharged to home ambulatory. eo2 12:06 Discharged to home ambulatory, pt ambulated out of the ER with strong and steady gait in NAD. Verbalized improved symptoms 12:06 Condition: stable 12:06 Discharge instructions given to patient, Instructed on discharge instructions, follow up and referral plans. medication usage, Demonstrated understanding of instructions, follow-up care, medications. 12:07 Patient left the ED. eo2 Signatures: Dispatcher [employer] Claudette Frost RN RN iw Miguel Yoo NP RECRUITER COORDINATOR pm1 Charity Martinez kj1 Nina Lewis Eunice, RN RN eo2 Corrections: (The following items were deleted from the chart) 05:36 05:09 Chief complaint: Patient states: cough, chest congestion, body aches, diarrhea iw and vomiting last night iw 05:37 05:35 PMHx: Hypertension; iw iw
--- NOTE | 2021-03-07 10:43 | EDPHYS ---
Physician Documentation [facility] Name: Delmer Doan Age: 50 yrs Sex: Male : 1970 Arrival Date: 03/07/2021 Time: 04:11 Bed 20 Private MD: ED Physician Brijesh Taylor HPI: 03/07 07:34 This 50 yrs old Male presents to ER via Ambulatory with complaints of Cough, Chest pm1 Pain, Vomiting/Diarrhea. 07:34 The patient or guardian reports cough, with no sputum. Onset: The symptoms/episode pm1 began/occurred last night. Severity of symptoms: in the emergency department the symptoms are actually worse. Modifying factors: The symptoms are alleviated by nothing, the symptoms are aggravated by nothing. Associated signs and symptoms: Pertinent positives: chest pain, diarrhea, fever, vomiting, Pertinent negatives: sore throat. The patient has not experienced similar symptoms in the past. The patient has not recently seen a physician. Patient reports diagnosis of pulmonary emboli in the summer. He 2 took Xarelto until November and decided to stop taking it. Patient reports symptoms today are similar to his diagnosis on pneumonia and PE. Historical: - Allergies: 05:36 No Known Allergies; iw - Home Meds: 05:39 atorvastatin 40 mg oral tab 1 tab once daily [Active]; [place] 5-325 mg Oral tab twice a iw day [Active]; pregabalin 100 mg Oral cap 1 cap 2 times per day [Active]; - PMHx: 05:35 Arthritis; Hyperlipidemia; iw - PSHx: 05:36 None; iw - Immunization history:: Client reports receiving the Steven \\T\\ Steven single-dose vaccine. - Social history:: Smoking status: Patient reports the use of cigarette tobacco products, smokes one pack cigarettes per day. ROS: 07:34 Cardiovascular: Negative for chest pain, palpitations, and edema, Respiratory: Negative pm1 for shortness of breath, cough, wheezing, and pleuritic chest pain, Abdomen/GI: Negative for abdominal pain, nausea, vomiting, diarrhea, and constipation, Back: Negative for injury and pain, MS/Extremity: Negative for injury and deformity, Skin: Negative for injury, rash, and discoloration, Neuro: Negative for headache, weakness, numbness, tingling, and seizure. 07:34 Constitutional: Positive for body aches, chills, fever. 07:34 All other systems are negative. Exam: 07:34 Constitutional: This is a well developed, well nourished patient who is awake, alert, pm1 and in no acute distress. Head/Face: Normocephalic, atraumatic. 07:34 Back: No spinal tenderness. No costovertebral tenderness. Full range of motion. Skin: Warm, dry with normal turgor. Normal color with no rashes, no lesions, and no evidence of cellulitis. MS/ Extremity: Pulses equal, no cyanosis. Neurovascular intact. Full, normal range of motion. 07:34 ENT: Exam is negative for acute changes, Mouth: no acute changes, Lips: normal, moist, Oral mucosa: normal, pink and intact, moist, Posterior pharynx: is normal, no acute changes. 07:34 Cardiovascular: Exam negative for acute changes, Rate: normal, Rhythm: regular, Pulses: no pulse deficits are appreciated, Heart sounds: normal, normal S1and S2. 07:34 Respiratory: Exam negative for acute changes, respiratory distress, shortness of breath, Breath sounds: are clear throughout. 07:34 Abdomen/GI: Exam negative for acute changes, Inspection: abdomen appears normal, Palpation: abdomen is soft and non-tender. 07:34 Neuro: Exam negative for acute changes, Orientation: is normal, Mentation: is normal, Motor: is normal, moves all fours. Vital Signs: 05:38 BP 119 / 90; Pulse 96; Resp 18; Temp 97.3; Pulse Ox 100% on R/A; Weight 113.4 kg; iw Height 6 ft. 2 in. (187.96 cm); 07:24 BP 125 / 94 LA Sitting (auto/lg); Pulse 92; Resp 17 S; Temp 98.8(O); Pulse Ox 100% on eo2 R/A; Pain 4/10; 09:00 BP 97 / 63; Pulse 76; Resp 15; Pulse Ox 98% ; eo2 10:00 BP 128 / 98; Pulse 96; Resp 21; Pulse Ox 100% ; Pain 3/10; eo2 11:00 BP 140 / 93; Pulse 92; Resp 18; Pulse Ox 98% ; eo2 11:55 BP 138 / 85; Pulse 90; Resp 17; Temp 100.6(O); Pulse Ox 99% ; Pain 2/10; eo2 05:38 Body Mass Index 32.10 (113.40 kg, 187.96 cm) MDM: 07:46 Patient medically screened. pm1 10:40 Data reviewed: vital signs. Data interpreted: Pulse oximetry: on room air is 98 %. pm1 Interpretation: normal. Counseling: I had a detailed discussion with the patient and/or guardian regarding: the historical points, exam findings, and any diagnostic results supporting the discharge/admit diagnosis, lab results, radiology results, the need for outpatient follow up, to return to the emergency department if symptoms worsen or persist or if there are any questions or concerns that arise at home. 10:48 ED course: PMPAware reviewed and patient is chronic pain patient of Dr. Zuniga. pm1 Therefore unable to give patient cough medication with narcotics, will give the patient Ira Morrison. 03/07 05:38 Order name: Basic Metabolic Panel; Complete Time: 07:24 03/07 05:38 Order name: CBC with Diff; Complete Time: 11:55 03/07 05:38 Order name: Hepatic Function; Complete Time: 07:24 03/07 05:38 Order name: Lipase; Complete Time: 07:24 03/07 05:38 Order name: COVID-19/FLU A+B (Document "Date of Onset" if Symptomatic); Complete Time: 07:32 03/07 07:33 Order name: Troponin (emerg Dept Use Only) pm1 03/07 05:40 Order name: CXR XRAY; Complete Time: 08:45 03/07 07:33 Order name: CT Chest For PE Angio; Complete Time: 08:45 pm1 03/07 07:33 Order name: PT-INR pm1 03/07 07:34 Order name: Troponin (Emerg Dept Use Only); Complete Time: 09:04 EDMI 03/07 07:34 Order name: Protime (+INR); Complete Time: 09:04 EDMI 03/07 11:34 Order name: Manual Differential; Complete Time: 11:55 EDMI 03/07 05:38 Order name: IV Saline Lock; Complete Time: 06:12 03/07 05:38 Order name: Labs collected and sent; Complete Time: 09:31 03/07 07:32 Order name: EKG; Complete Time: 07:33 pm1 03/07 07:32 Order name: EKG - Nurse/Tech; Complete Time: 08:35 pm1 Administered Medications: 08:34 Drug: NS 0.9% 1000 ml Route: IV; Rate: 1000 ml; Site: left antecubital; eo2 11:00 Follow up: IV Status: Completed infusion; IV Intake: 1000ml eo2 08:34 Drug: Tussionex Pennkinetic ER (chlorpheniramine-hydrocodone) Suspension 5 ml Route: PO;eo2 09:30 Follow up: Response: No adverse reaction eo2 11:59 Drug: Tylenol 1000 mg Route: PO; eo2 12:06 Follow up: Response: No adverse reaction eo2 Disposition: 19:39 Co-signature as Attending Physician, Brijesh Taylor MD. pkl Disposition Summary: 03/07/21 10:42 Discharge Ordered Location: Home pm1 Problem: new pm1 Symptoms: have improved pm1 Condition: Stable pm1 Diagnosis - Acute upper respiratory infection, unspecified pm1 - Vomiting pm1 - Diarrhea, unspecified pm1 - Hiatal Hernia pm1 Followup: pm1 - With: Emergency Department - When: As needed - Reason: Worsening of condition Followup: pm1 - With: Private Physician - When: 2 - 3 days - Reason: Recheck today's complaints, Continuance of care, Re-evaluation by your physician Discharge Instructions: - Discharge Summary Sheet pm1 - Diarrhea, Adult pm1 - Hiatal Hernia pm1 - Nausea and Vomiting, Adult pm1 - Upper Respiratory Infection, Adult pm1 Forms: - Medication Reconciliation Form pm1 - Thank You Letter pm1 - Antibiotic Education pm1 - Prescription Opioid Use pm1 Prescriptions: - ondansetron 4 mg Oral tablet,disintegrating - place 1 tablet by TRANSLINGUAL route every 8 hours As needed; 15 tablet; pm1 Refills: 0, Product Selection Permitted - Tessalon Perles 100 mg Oral Capsule - take 1 capsule by ORAL route every 8 hours As needed; 15 capsule; Refills: 0, pm1 Product Selection Permitted Signatures: Dispatcher [employer] Brijesh Canela MD MD pkl Claudette Hahn RN RN iw Miguel Yoo, HAND MEAT SALTER HAND MEAT SALTER pm1 Gila Spencer RN RN eo2 Corrections: (The following items were deleted from the chart) 05:37 05:35 PMHx: Hypertension; iw iw
[2021-03-07 11:35] LABS: Anisocytosis 1+; Blood Morphology Comment NOTED (NOT SEEN); Hypochromasia 1+; Platelet Estimate INCR; Poikilocytosis SLIGHT
[2021-03-07] MEDS ORDERED: ACETAMINOPHEN 500 MG TAB ONE (11:58)
[2021-03-07 12:19] VITALS: BP 138/85; TEMP 100.6; O2SAT 99
== END 2021-03-07 12:07 | disposition home or self-care (01) ==
LOC: ER 04:07
DX: J06.9 Acute upper respiratory infection, unspecified (principal); R11.10 Vomiting, unspecified; R19.7 Diarrhea, unspecified; K44.9 Diaphragmatic hernia without obstruction or gangrene; F17.210 Nicotine dependence, cigarettes, uncomplicated; Z20.822 Contact with and (suspected) exposure to COVID-19
CPT/HCPCS: 96361; 93005; 85025; 80048; 36415; 85610; 80076; 84484; 83690; 0240U; 71275; 71045; 96360; 99285; Q9967; J7030

== ENCOUNTER → 2023-03-05 | Emergency (ER) | payer OTHER ==
[~2023-03-05] MED LIST: AZITHROMYCIN 250 MG TAB ONE; CEFTRIAXONE 1000 MG/VIAL ONE; LIDOCAINE 1% 20 ML MDV ONE
--- OUTSIDE RECORDS SUMMARY | 2023-03-05 13:39 | XMS REPORT | Continuity of Care Document ---
Author Name Unknown Address [address] [facility] [address] [place] [address] [facility] thconnect Address [address] [facility] [address] [place] [address] Care Team Providers Care Territory Sales Consultant Name Role Phone Deny Rhodes MD Primary Care Physician [phone] Deny Rhodes MD Attending Clinician [phone] Konstantin Buck DO Attending Clinician [phone] Doctor Unassigned, [place] Attending Clinician Pretty Maddox RN Attending Clinician Tracie rafael Vitale, [facility] Attending Clinician UnaHayde Guillory PA-C Attending Clinician [phone] HAYDE SOFIA Attending Clinician Unavailable GIN FRANCIS Attending Clinician Unavailable Nanci Ruiz Attending Clinician [phone] VASQUEZ FREDERICK Attending Clinician Unavailable Payers Payer Name Policy Type Policy Number Effective Date Expirati on Date Source Problems Condition Name Condition Details Condition Category Status Onset Date Resolution Date Last Treatment Date Treating Clinician Comments Source Other chronic pain Other chronic pain Disease Active 11-05 00:00: 00 [facility] Medication refill Medication refill Disease Active 11-05 00:00: 00 [facility] Medication refill Medication refill Disease Active 11-05 00:00: 00 [facility] Tobacco abuse Tobacco abuse Disease Active 3-16 00:00: 00 [facility] Acute maxillary sinusitis, recurrence not specified Acute maxillary sinusitis, recurrence not specified Disease Active 2017-03 2-15 00:00: 00 [facility] Elevated ALT measuremen t Elevated ALT measuremen t Disease Active 07-06 00:00: 00 [facility] Elevated platelet count Elevated platelet count Disease Active 07-06 00:00: 00 [facility] Creatinine elevation Creatinine elevation Disease Active 07-06 00:00: 00 [facility] [place]atre [place] Hyper[place]atre [place] Disease Active 07-06 00:00: 00 [facility] Creatinine elevation Creatinine elevation Disease Active 07-06 00:00: 00 [facility] Hypernatre [place] Hyper[place]atre [place] Disease Active 07-06 00:00: 00 [facility] On correction drug therapy On correction drug therapy Disease Active 04-13 00:00: 00 [facility] Psoriatic arthritis Psoriatic arthritis Disease Active 04-13 00:00: 00 [facility] Gastro-eso phageal reflux disease with esophagiti s Gastro-eso phageal reflux disease with esophagiti s Disease Active 2014-03 0 00:00: 00 [facility] Hyperlipid emia Hyperlipid emia Disease Active 2014-03 00:00: 00 [facility] Allergies, Adverse Reactions, Alerts Allergy Name Allergy Type Status Severity Reaction(s) Onset Date Inactive Date Treating Clinician Comments Source NO KNOWN ALLERGIE S Drug Class Active [facility] Social History Social Habit Start Date Stop Date Quantity Comments Source [facility] History of tobacco use Cigarette Smoker [facility] History of Social function 2019-10-16 00:00:00 2019-10-16 00:00:00 [facility] Exposure to SARS-CoV-2 (event) 2019-08-04 00:00:00 2019-09-03 11:00:00 Not sure [facility] Alcohol intake 2019-09-03 00:00:00 2019-09-03 00:00:00 Current non-drinker of alcohol (finding) [facility] Tobacco use and exposure 2015-10-29 00:00:00 2015-10-29 00:00:00 Smokeless tobacco non-user [facility] Cigarettes smoked current (pack per day) - Reported 2015-10-29 00:00:00 2015-10-29 00:00:00 [facility] Cigarette pack-years 2015-10-29 00:00:00 2015-10-29 00:00:00 [facility] Tobacco Comment 2015-10-29 00:00:00 2015-10-29 00:00:00 thinking about it [facility] Sex Assigned At 1970 00:00:00 1970 00:00:00 [facility] Smoking Status Start Date Stop Date Source Smokes tobacco daily 2015-10-29 00:00:00 [facility] Medications Ordered Medication Name Filled Medication Name Start Date Stop Date Current Medication? Ordering Clinician Indication Dosage Frequency Signature (SIG) Comments Components Source IBUPROFEN 800 mg tablet 2019-03 00:00: 00 Yes [id number] TAKE 1 TABLET BY MOUTH THREE TIMES A DAY WITH MEALS [facility] IBUPROFEN 800 mg tablet 2019-03 00:00: 00 Yes [id number] TAKE 1 TABLET BY MOUTH THREE TIMES A DAY WITH MEALS [facility] IBUPROFEN 800 mg tablet 2019-03 00:00: 00 Yes [id number] TAKE 1 TABLET BY MOUTH THREE TIMES A DAY WITH MEALS [facility] IBUPROFEN 800 mg tablet 2019-03 00:00: 00 Yes [id number] TAKE 1 TABLET BY MOUTH THREE TIMES A DAY WITH MEALS [facility] IBUPROFEN 800 mg tablet 2019-03 00:00: 00 Yes [id number] TAKE 1 TABLET BY MOUTH THREE TIMES A DAY WITH MEALS [facility] IBUPROFEN 800 mg tablet 2019-03 00:00: 00 03-02 00:00 :00 No [id number] TAKE 1 TABLET BY MOUTH THREE TIMES A DAY WITH MEALS [facility] IBUPROFEN 800 mg tablet 12-04 00:00: 00 Yes [id number] TAKE 1 TABLET BY MOUTH THREE TIMES A DAY WITH MEALS [facility] IBUPROFEN 800 mg tablet 2020-0 9-25 00:00: 00 -19 00:00 :00 No [id number] TAKE 1 TABLET BY MOUTH THREE TIMES A DAY WITH MEALS [facility] ibuprofen (IBU) 800 mg tablet 11-11 00:00: 00 Yes [id number] 800mg Take 1 tablet by mouth 3 (three) times daily with meals. [facility] aug betamethaso ne dipropionat e 0.05 % ointment 11-11 00:00: 00 Yes [id number] Apply to area(s) daily. [facility] gabapentin 300 mg capsule 11-11 00:00: 00 Yes [id number] 300mg Take 1 capsule by mouth 3 (three) times daily. [facility] aug betamethaso ne dipropionat e 0.05 % ointment 11-11 00:00: 00 Yes [id number] Apply to area(s) daily. [facility] gabapentin 300 mg capsule 11-11 00:00: 00 Yes [id number] 300mg Take 1 capsule by mouth 3 (three) times daily. [facility] aug betamethaso ne dipropionat e 0.05 % ointment 0 11-11 00:00: 00 Yes [id number] Apply to area(s) daily. [facility] gabapentin 300 mg capsule 11-11 00:00: 00 Yes [id number] 300mg Take 1 capsule by mouth 3 (three) times daily. [facility] aug betamethaso ne dipropionat e 0.05 % ointment 11-11 00:00: 00 Yes [id number] Apply to area(s) daily. [facility] gabapentin 300 mg capsule 0 11-11 00:00: 00 Yes [id number] 300mg Take 1 capsule by mouth 3 (three) times daily. [facility] aug betamethaso ne dipropionat e 0.05 % ointment 0 11-11 00:00: 00 Yes [id number] Apply to area(s) daily. [facility] gabapentin 300 mg capsule 11-11 00:00: 00 Yes [id number] 300mg Take 1 capsule by mouth 3 (three) times daily. [facility] aug betamethaso ne dipropionat e 0.05 % ointment 11-11 00:00: 00 Yes [id number] Apply to area(s) daily. [facility] gabapentin 300 mg capsule 11-11 00:00: 00 Yes [id number] 300mg Take 1 capsule by mouth 3 (three) times daily. [facility] aug betamethaso ne dipropionat e 0.05 % ointment 11-11 00:00: 00 Yes [id number] Apply to area(s) daily. [facility] gabapentin 300 mg capsule 11-11 00:00: 00 Yes [id number] 300mg Take 1 capsule by mouth 3 (three) times daily. [facility] ibuprofen (IBU) 800 mg tablet 11-11 00:00: 00 12-04 00:00 :00 No [id number] 800mg Take 1 tablet by mouth 3 (three) times daily with meals. [facility] albuterol 90 mcg/actuati on inhaler 09-07 00:00: 00 Yes 2{puff} Inhale 2 Puffs every 6 (six) hours as needed for Wheezing or Shortness of Breath. [facility] albuterol 90 mcg/actuati on inhaler 09-07 00:00: 00 Yes 2{puff} Inhale 2 Puffs every 6 (six) hours as needed for Wheezing or Shortness of Breath. [facility] albuterol 90 mcg/actuati on inhaler 09-07 00:00: 00 Yes 2{puff} Inhale 2 Puffs every 6 (six) hours as needed for Wheezing or Shortness of Breath. [facility] albuterol 90 mcg/actuati on inhaler 09-07 00:00: 00 Yes 2{puff} Inhale 2 Puffs every 6 (six) hours as needed for Wheezing or Shortness of Breath. [facility] albuterol 90 mcg/actuati on inhaler 0 09-07 00:00: 00 Yes 2{puff} Inhale 2 Puffs every 6 (six) hours as needed for Wheezing or Shortness of Breath. [facility] albuterol 90 mcg/actuati on inhaler 0 09-07 00:00: 00 Yes 2{puff} Inhale 2 Puffs every 6 (six) hours as needed for Wheezing or Shortness of Breath. [facility] albuterol 90 mcg/actuati on inhaler 0 09-07 00:00: 00 Yes 2{puff} Inhale 2 Puffs every 6 (six) hours as needed for Wheezing or Shortness of Breath. [facility] albuterol 90 mcg/actuati on inhaler 0 09-07 00:00: 00 Yes 2{puff} Inhale 2 Puffs every 6 (six) hours as needed for Wheezing or Shortness of Breath. [facility] albuterol 90 mcg/actuati on inhaler 0 09-07 00:00: 00 Yes 2{puff} Inhale 2 Puffs every 6 (six) hours as needed for Wheezing or Shortness of Breath. [facility] GABAPENTIN 300 mg capsule 2020-0 6-15 00:00: 00 Yes [id number] TAKE 1 CAPSULE BY MOUTH THREE TIMES A DAY [facility] GABAPENTIN 300 mg capsule 2020-0 6-15 00:00: 00 Yes [id number] TAKE 1 CAPSULE BY MOUTH THREE TIMES A DAY [facility] GABAPENTIN 300 mg capsule 2020-0 6-15 00:00: 00 Yes [id number] TAKE 1 CAPSULE BY MOUTH THREE TIMES A DAY [facility] GABAPENTIN 300 mg capsule 2020-0 6-15 00:00: 00 Yes [id number] TAKE 1 CAPSULE BY MOUTH THREE TIMES A DAY [facility] GABAPENTIN 300 mg capsule 2020-0 6-15 00:00: 00 Yes [id number] TAKE 1 CAPSULE BY MOUTH THREE TIMES A DAY [facility] GABAPENTIN 300 mg capsule 2020-0 6-15 00:00: 00 11-11 00:00 :00 No [id number] TAKE 1 CAPSULE BY MOUTH THREE TIMES A DAY [facility] aug betamethaso ne dipropionat e 0.05 % ointment 0 08-04 00:00: 00 Yes [id number] Apply to area(s) daily. [facility] aug betamethaso ne dipropionat e 0.05 % ointment 0 08-04 00:00: 00 Yes [id number] Apply to area(s) daily. [facility] aug betamethaso ne dipropionat e 0.05 % ointment 0 08-04 00:00: 00 Yes [id number] Apply to area(s) daily. [facility] aug betamethaso ne dipropionat e 0.05 % ointment 0 08-04 00:00: 00 Yes [id number] Apply to area(s) daily. [facility] aug betamethaso ne dipropionat e 0.05 % ointment 0 08-04 00:00: 00 Yes [id number] Apply to area(s) daily. [facility] aug betamethaso ne dipropionat e 0.05 % ointment 0 08-04 00:00: 00 Yes [id number] Apply to area(s) daily. [facility] aug betamethaso ne dipropionat e 0.05 % ointment 0 08-04 00:00: 00 11-11 00:00 :00 No [id number] Apply to area(s) daily. [facility] GABAPENTIN 300 mg capsule 07-31 00:00: 00 Yes [id number] TAKE 1 CAPSULE BY MOUTH THREE TIMES A DAY [facility] GABAPENTIN 300 mg capsule 07-31 00:00: 00 Yes [id number] TAKE 1 CAPSULE BY MOUTH THREE TIMES A DAY [facility] GABAPENTIN 300 mg capsule 07-31 00:00: 00 08-24 00:00 :00 No [id number] TAKE 1 CAPSULE BY MOUTH THREE TIMES A DAY [facility] varenicline (CHANTIX STARTING MONTH BOX) 0.5 mg (11)- 1 mg (42) tablet -20 00:00: 00 Yes [id number] Take one 0.5mg tab by mouth once daily for 3 days, then one 0.5mg tab twice daily for 4 days, then one 1mg tab twice daily. [facility] varenicline (CHANTIX STARTING [facility]) 0.5 mg (11)- 1 mg (42) tablet 0 06-29 00:00: 00 Yes [id number] Take one 0.5mg tab by mouth once daily for 3 days, then one 0.5mg tab twice daily for 4 days, then one 1mg tab twice daily. [facility] varenicline (CHANTIX STARTING [facility]) 0.5 mg (11)- 1 mg (42) tablet 06-29 00:00: 00 Yes [id number] Take one 0.5mg tab by mouth once daily for 3 days, then one 0.5mg tab twice daily for 4 days, then one 1mg tab twice daily. [facility] varenicline (CHANT[facility] STARTING [facility]) 0.5 mg (11)- 1 mg (42) tablet 0 06-29 00:00: 00 Yes [id number] Take one 0.5mg tab by mouth once daily for 3 days, then one 0.5mg tab twice daily for 4 days, then one 1mg tab twice daily. [facility] varenicline (CHANT[facility] STARTING [facility]) 0.5 mg (11)- 1 mg (42) tablet 0 06-29 00:00: 00 Yes [id number] Take one 0.5mg tab by mouth once daily for 3 days, then one 0.5mg tab twice daily for 4 days, then one 1mg tab twice daily. [facility] varenicline (CHANT[facility] STARTING [facility]) 0.5 mg (11)- 1 mg (42) tablet 06-29 00:00: 00 Yes [id number] Take one 0.5mg tab by mouth once daily for 3 days, then one 0.5mg tab twice daily for 4 days, then one 1mg tab twice daily. [facility] varenicline ([facility]) 0.5 mg (11)- 1 mg (42) tablet 0 06-29 00:00: 00 Yes [id number] Take one 0.5mg tab by mouth once daily for 3 days, then one 0.5mg tab twice daily for 4 days, then one 1mg tab twice daily. [facility] varenicline ([facility]) 0.5 mg (11)- 1 mg (42) tablet 0 06-29 00:00: 00 Yes [id number] Take one 0.5mg tab by mouth once daily for 3 days, then one 0.5mg tab twice daily for 4 days, then one 1mg tab twice daily. [facility] varenicline ([facility]) 0.5 mg (11)- 1 mg (42) tablet 06-29 00:00: 00 Yes [id number] Take one 0.5mg tab by mouth once daily for 3 days, then one 0.5mg tab twice daily for 4 days, then one 1mg tab twice daily. [facility] varenicline ([facility]) 0.5 mg (11)- 1 mg (42) tablet 06-29 00:00: 00 Yes [id number] Take one 0.5mg tab by mouth once daily for 3 days, then one 0.5mg tab twice daily for 4 days, then one 1mg tab twice daily. [facility] varenicline ([facility]) 0.5 mg (11)- 1 mg (42) tablet 06-29 00:00: 00 Yes [id number] Take one 0.5mg tab by mouth once daily for 3 days, then one 0.5mg tab twice daily for 4 days, then one 1mg tab twice daily. [facility] varenicline ([facility]) 0.5 mg (11)- 1 mg (42) tablet 06-29 00:00: 00 Yes [id number] Take one 0.5mg tab by mouth once daily for 3 days, then one 0.5mg tab twice daily for 4 days, then one 1mg tab twice daily. [facility] varenicline ([facility]) 0.5 mg (11)- 1 mg (42) tablet 0 06-29 00:00: 00 Yes [id number] Take one 0.5mg tab by mouth once daily for 3 days, then one 0.5mg tab twice daily for 4 days, then one 1mg tab twice daily. [facility] varenicline ([facility]) 0.5 mg (11)- 1 mg (42) tablet 2019-0 06-29 00:00: 00 Yes [id number] Take one 0.5mg tab by mouth once daily for 3 days, then one 0.5mg tab twice daily for 4 days, then one 1mg tab twice daily. [facility] varenicline ([facility]) 0.5 mg (11)- 1 mg (42) tablet 06-29 00:00: 00 Yes [id number] Take one 0.5mg tab by mouth once daily for 3 days, then one 0.5mg tab twice daily for 4 days, then one 1mg tab twice daily. [facility] varenicline ([facility]) 0.5 mg (11)- 1 mg (42) tablet 06-29 00:00: 00 Yes [id number] Take one 0.5mg tab by mouth once daily for 3 days, then one 0.5mg tab twice daily for 4 days, then one 1mg tab twice daily. [facility] varenicline ([facility]) 0.5 mg (11)- 1 mg (42) tablet 0 06-29 00:00: 00 Yes [id number] Take one 0.5mg tab by mouth once daily for 3 days, then one 0.5mg tab twice daily for 4 days, then one 1mg tab twice daily. [facility] varenicline ([facility]) 0.5 mg (11)- 1 mg (42) tablet 0 06-29 00:00: 00 Yes [id number] Take one 0.5mg tab by mouth once daily for 3 days, then one 0.5mg tab twice daily for 4 days, then one 1mg tab twice daily. [facility] varenicline ([facility]) 0.5 mg (11)- 1 mg (42) tablet 0 4-20 00:00: 00 Yes [id number] Take one 0.5mg tab by mouth once daily for 3 days, then one 0.5mg tab twice daily for 4 days, then one 1mg tab twice daily. [facility] GABAPENTIN 300 mg capsule 0 12 00:00: 00 Yes [id number] TAKE 1 CAPSULE BY MOUTH THREE TIMES A DAY [facility] GABAPENTIN 300 mg capsule 0 12 00:00: 00 Yes [id number] TAKE 1 CAPSULE BY MOUTH THREE TIMES A DAY [facility] GABAPENTIN 300 mg capsule 0 12 00:00: 00 Yes [id number] TAKE 1 CAPSULE BY MOUTH THREE TIMES A DAY [facility] GABAPENTIN 300 mg capsule 0 12 00:00: 00 Yes [id number] TAKE 1 CAPSULE BY MOUTH THREE TIMES A DAY [facility] GABAPENTIN 300 mg capsule 0 12 00:00: 00 Yes [id number] TAKE 1 CAPSULE BY MOUTH THREE TIMES A DAY [facility] GABAPENTIN 300 mg capsule 0 12 00:00: 00 07-31 00:00 :00 No [id number] TAKE 1 CAPSULE BY MOUTH THREE TIMES A DAY [facility] ibuprofen (IBU) 800 mg tablet 0 24 14:09: 14 06-02 00:00 :00 No IBU 800 mg tablet [facility] ibuprofen (IBU) 800 mg tablet 0 24 00:00: 00 Yes [id number] 800mg Take 1 tablet by mouth 3 (three) times daily with meals. [facility] ibuprofen (IBU) 800 mg tablet 0 24 00:00: 00 Yes [id number] 800mg Take 1 tablet by mouth 3 (three) times daily with meals. [facility] ibuprofen (IBU) 800 mg tablet 0 24 00:00: 00 Yes [id number] 800mg Take 1 tablet by mouth 3 (three) times daily with meals. [facility] ibuprofen (IBU) 800 mg tablet 0 24 00:00: 00 Yes [id number] 800mg Take 1 tablet by mouth 3 (three) times daily with meals. [facility] ibuprofen (IBU) 800 mg tablet 2020-0 3-24 00:00: 00 Yes [id number] 800mg Take 1 tablet by mouth 3 (three) times daily with meals. [facility] ibuprofen (IBU) 800 mg tablet 2020-0 3-24 00:00: 00 Yes [id number] 800mg Take 1 tablet by mouth 3 (three) times daily with meals. [facility] ibuprofen (IBU) 800 mg tablet 2020-0 3-24 00:00: 00 Yes [id number] 800mg Take 1 tablet by mouth 3 (three) times daily with meals. [facility] 800 mg tablet 2020-0 3-24 00:00: 00 Yes [id number] 800mg Take 1 tablet by mouth 3 (three) times daily with meals. [facility] 800 mg tablet 2020-0 3-24 00:00: 00 Yes [id number] 800mg Take 1 tablet by mouth 3 (three) times daily with meals. [facility] (IBU) 800 mg tablet 2020-0 3-24 00:00: 00 Yes [id number] 800mg Take 1 tablet by mouth 3 (three) times daily with meals. [facility] ibuprofen (IBU) 800 mg tablet 2020-0 3-24 00:00: 00 Yes [id number] 800mg Take 1 tablet by mouth 3 (three) times daily with meals. [facility] (IBU) 800 mg tablet 2020-0 3-24 00:00: 00 Yes [id number] 800mg Take 1 tablet by mouth 3 (three) times daily with meals. [facility] (IBU) 800 mg tablet 2020-0 3-24 00:00: 00 Yes [id number] 800mg Take 1 tablet by mouth 3 (three) times daily with meals. [facility] ib[facility] (IBU) 800 mg tablet 2020-0 3-24 00:00: 00 11-11 00:00 :00 No [id number] 800mg Take 1 tablet by mouth 3 (three) times daily with meals. [facility] GABAPENTIN 300 mg capsule 2020-0 3-19 00:00: 00 Yes [id number] TAKE 1 CAPSULE BY MOUTH THREE TIMES A DAY [facility] GABAPENTIN 300 mg capsule 2020-0 3-19 00:00: 00 Yes [id number] TAKE 1 CAPSULE BY MOUTH THREE TIMES A DAY [facility] GABAPENTIN 300 mg capsule 2020-0 3-19 00:00: 00 06-21 00:00 :00 No [id number] TAKE 1 CAPSULE BY MOUTH THREE TIMES A DAY [facility] gabapentin 300 mg capsule 2020-0 2-24 00:00: 00 Yes [id number] TAKE 1 CAPSULE BY MOUTH THREE TIMES A DAY [facility] gabapentin 300 mg capsule 2020-0 2-24 00:00: 00 05-28 00:00 :00 No [id number] TAKE 1 CAPSULE BY MOUTH THREE TIMES A DAY [facility] gabapentin 300 mg capsule 2020-0 1-27 00:00: 00 Yes [id number] TAKE 1 CAPSULE BY MOUTH THREE TIMES A DAY [facility] gabapentin 300 mg capsule 2020-0 1-27 00:00: 00 05-05 00:00 :00 No [id number] TAKE 1 CAPSULE BY MOUTH THREE TIMES A DAY [facility] esomeprazol e 40 mg capsule 2020-0 1-03 00:00: 00 Yes [id number] TAKE 1 CAPSULE DAILY WITH BREAKFAST [facility] esomeprazol e 40 mg capsule 2020-0 1-03 00:00: 00 Yes [id number] TAKE 1 CAPSULE DAILY WITH BREAKFAST [facility] esomeprazol e 40 mg capsule 2020-0 1-03 00:00: 00 Yes [id number] TAKE 1 CAPSULE DAILY WITH BREAKFAST [facility] esomeprazol e 40 mg capsule 2020-0 1-03 00:00: 00 Yes [id number] TAKE 1 CAPSULE DAILY WITH BREAKFAST [facility] esomeprazol e 40 mg capsule 2020-0 1-03 00:00: 00 Yes [id number] TAKE 1 CAPSULE DAILY WITH BREAKFAST [facility] esomeprazol e 40 mg capsule 2020-0 1-03 00:00: 00 Yes [id number] TAKE 1 CAPSULE DAILY WITH BREAKFAST [facility] esomeprazol e 40 mg capsule 2020-0 1-03 00:00: 00 Yes [id number] TAKE 1 CAPSULE DAILY WITH BREAKFAST [facility] esomeprazol e 40 mg capsule 2020-0 1-03 00:00: 00 Yes [id number] TAKE 1 CAPSULE DAILY WITH BREAKFAST [facility] esomeprazol e 40 mg capsule 2020-0 1-03 00:00: 00 Yes [id number] TAKE 1 CAPSULE DAILY WITH BREAKFAST [facility] esomeprazol e 40 mg capsule 2020-0 1-03 00:00: 00 Yes [id number] TAKE 1 CAPSULE DAILY WITH BREAKFAST [facility] esomeprazol e 40 mg capsule 2020-0 1-03 00:00: 00 Yes [id number] TAKE 1 CAPSULE DAILY WITH BREAKFAST [facility] esomeprazol e 40 mg capsule 2020-0 1-03 00:00: 00 Yes [id number] TAKE 1 CAPSULE DAILY WITH BREAKFAST [facility] esomeprazol e 40 mg capsule 2020-0 1-03 00:00: 00 Yes [id number] TAKE 1 CAPSULE DAILY WITH BREAKFAST [facility] esomeprazol e 40 mg capsule 2020-0 1-03 00:00: 00 Yes [id number] TAKE 1 CAPSULE DAILY WITH BREAKFAST [facility] esomeprazol e 40 mg capsule 2020-0 1-03 00:00: 00 Yes [id number] TAKE 1 CAPSULE DAILY WITH BREAKFAST [facility] esomeprazol e 40 mg capsule 2020-0 1-03 00:00: 00 Yes [id number] TAKE 1 CAPSULE DAILY WITH BREAKFAST [facility] esomeprazol e 40 mg capsule 2020-0 1-03 00:00: 00 Yes [id number] TAKE 1 CAPSULE DAILY WITH BREAKFAST [facility] esomeprazol e 40 mg capsule 2020-0 1-03 00:00: 00 Yes [id number] TAKE 1 CAPSULE DAILY WITH BREAKFAST [facility] esomeprazol e 40 mg capsule 2020-0 1-03 00:00: 00 Yes [id number] TAKE 1 CAPSULE DAILY WITH BREAKFAST [facility] esomeprazol e 40 mg capsule 2020-0 1-03 00:00: 00 Yes [id number] TAKE 1 CAPSULE DAILY WITH BREAKFAST [facility] esomeprazol e 40 mg capsule 03-14 00:00: 00 Yes [id number] TAKE 1 CAPSULE DAILY WITH BREAKFAST [facility] esomeprazol e 40 mg capsule 03-14 00:00: 00 Yes [id number] TAKE 1 CAPSULE DAILY WITH BREAKFAST [facility] esomeprazol e 40 mg capsule 03-14 00:00: 00 Yes [id number] TAKE 1 CAPSULE DAILY WITH BREAKFAST [facility] esomeprazol e 40 mg capsule 03-14 00:00: 00 Yes [id number] TAKE 1 CAPSULE DAILY WITH BREAKFAST [facility] aug betamethaso ne dipropionat e 0.05 % ointment 03-14 00:00: 00 04-14 05:59 :00 No [id number] Apply to area(s) daily for 30 days. [facility] gabapentin 300 mg capsule 03-14 00:00: 00 04-07 00:00 :00 No [id number] TAKE 1 CAPSULE BY MOUTH THREE TIMES A DAY [facility] ibuprofen (IBU) 800 mg tablet 2018-03 15:31: 46 Yes IBU 800 mg tablet [facility] ibuprofen (IBU) 800 mg tablet 2018-03 15:31: 46 Yes IBU 800 mg tablet [facility] ibuprofen (IBU) 800 mg tablet 2018-03 15:31: 46 Yes IBU 800 mg tablet [facility] gabapentin 300 mg capsule 11-28 00:00: 00 Yes [id number] 300mg Take 1 capsule by mouth 3 (three) times daily. [facility] adalimumab (HUMIRA,CF, ) 40 mg/0.4 mL SyKt 11-05 18:17: 34 Yes inject under the skin. [facility] adalimumab (HUMIRA,CF, ) 40 mg/0.4 mL SyKt 11-05 18:17: 34 Yes inject under the skin. [facility] adalimumab (HUMIRA,CF, ) 40 mg/0.4 mL SyKt 8 18:17: 34 Yes inject under the skin. [facility] adalimumab (HUMIRA,CF, ) 40 mg/0.4 mL SyKt 11-05 18:17: 34 Yes inject under the skin. [facility] adalimumab (HUMIRA,CF, ) 40 mg/0.4 mL SyKt 0 8 18:17: 34 Yes inject under the skin. [facility] adalimumab (HUMIRA,CF, ) 40 mg/0.4 mL SyKt 0 8 18:17: 34 Yes inject under the skin. [facility] adalimumab (HUMIRA,CF, ) 40 mg/0.4 mL SyKt 11-05 18:17: 34 Yes inject under the skin. [facility] adalimumab (HUMIRA,CF, ) 40 mg/0.4 mL SyKt 11-05 18:17: 34 Yes inject under the skin. [facility] adalimumab (HUMIRA,CF, ) 40 mg/0.4 mL SyKt 0 8 18:17: 34 Yes inject under the skin. [facility] adalimumab (HUMIRA,CF, ) 40 mg/0.4 mL SyKt 11-05 18:17: 34 Yes inject under the skin. [facility] adalimumab (HUMIRA,CF, ) 40 mg/0.4 mL SyKt 11-05 18:17: 34 Yes inject under the skin. [facility] adalimumab (HUMIRA,CF, ) 40 mg/0.4 mL SyKt 0 8 18:17: 34 Yes inject under the skin. [facility] adalimumab (HUMIRA,CF, ) 40 mg/0.4 mL SyKt 0 8 18:17: 34 Yes inject under the skin. [facility] adalimumab (HUMIRA,CF, ) 40 mg/0.4 mL SyKt 0 8 18:17: 34 Yes inject under the skin. [facility] adalimumab (HUMIRA,CF, ) 40 mg/0.4 mL SyKt 11-05 18:17: 34 Yes inject under the skin. [facility] adalimumab (HUMIRA,CF, ) [facility]4 [facility] 18:17: 34 Yes inject under the skin. [facility] adalimumab (HUMIRA,CF, ) 40 mg/0.4 mL [facility] 11[facility] 18:17: 34 Yes inject under the skin. [facility] adalimumab (HUMIRA,CF, ) 40 mg/0.4 mL [facility] 11[facility]05 18:17: 34 Yes inject under the skin. [facility] adalimumab (HUMIRA,CF, ) 40 mg/0.4 mL [facility] 11[facility] 18:17: 34 Yes inject under the skin. [facility] adalimumab (HUMIRA,CF, ) 40 mg/0.4 mL [facility] 11[facility] 18:17: 34 Yes inject under the skin. [facility] adalimumab (HUMIRA,CF, ) 40 mg/0.4 mL [facility] 11-[facility] 18:17: 34 Yes [facility] adalimumab (HUMIRA,CF, ) 40 mg/0.4 mL [facility] 11-05 18:17: 34 Yes inject under the skin. [facility] ibuprofen (IBU) 800 mg tablet 11-05 18:17: 34 Yes IBU 800 mg tablet [facility] aug betamethaso ne dipropionat e 0.05 % ointment 11-05 18:17: 34 Yes Apply to area(s) daily. [facility] adalimumab (HUMIRA,CF, ) 40 mg/0.4 mL [facility] 11-[facility] 18:17: 34 Yes inject under the skin. [facility] ib[facility] (IBU) 800 mg tablet 11-05 18:17: 34 Yes IBU 800 mg tablet [facility] aug betamethaso ne dipropionat e 0.05 % ointment 11-05 18:17: 34 Yes Apply to area(s) daily. [facility] adalimumab (HUMIRA,CF, ) 40 mg/0.4 mL SyKt 11-05 18:17: 34 Yes inject under the skin. [facility] ibuprofen (IBU) 800 mg tablet 11-05 18:17: 34 Yes IBU 800 mg tablet [facility] aug betamethaso ne dipropionat e 0.05 % ointment 11-05 18:17: 34 Yes Apply to area(s) daily. [facility] adalimumab (HUMIRA,CF, ) 40 mg/0.4 mL SyKt 11-05 18:17: 34 Yes inject under the skin. [facility] ibuprofen (IBU) 800 mg tablet 11-05 18:17: 34 Yes IBU 800 mg tablet [facility] aug betamethaso ne dipropionat e 0.05 % ointment 11-05 18:17: 34 Yes Apply to area(s) daily. [facility] adalimumab (HUMIRA,CF, ) 40 mg/0.4 mL SyKt 11-05 18:17: 34 Yes inject under the skin. [facility] adalimumab (HUMIRA,CF, ) 40 mg/0.4 mL [facility] 11[facility] 18:17: 34 Yes inject under the skin. [facility] adalimumab (HUMIRA,CF, ) 40 mg/0.4 mL [facility] 11-05 13:17: 34 Yes inject under the skin. [facility] esomeprazol e 40 mg capsule 11-05 00:00: 00 Yes [id number] TAKE 1 CAPSULE DAILY WITH BREAKFAST [facility] esomeprazol e 40 mg capsule 11-05 00:00: 00 Yes [id number] TAKE 1 CAPSULE DAILY WITH BREAKFAST [facility] esomeprazol e 40 mg capsule 11-05 00:00: 00 Yes [id number] TAKE 1 CAPSULE DAILY WITH BREAKFAST [facility] gabapentin 300 mg capsule 11-05 00:00: 00 12-06 04:59 :00 No [id number] 300mg Take 1 capsule by mouth 3 (three) times daily for 30 days. [facility] gabapentin 300 mg capsule 11-05 00:00: 12-06 04:59 :00 No [id number] 300mg Take 1 capsule by mouth 3 (three) times daily for 30 days. [facility] gabapentin 300 mg capsule 11-05 00:00: 00 11-28 00:00 :00 No [id number] 300mg Take 1 capsule by mouth 3 (three) times daily for 30 days. [facility] adalimumab (HUMIRA,CF, ) 40 mg/0.4 mL [facility] 09-[facility] 16:14: 42 Yes inject under the skin. [facility] adalimumab (HUMIRA,CF, ) 40 mg/0.4 mL [facility] 09[facility] 16:14: 42 Yes inject under the skin. [facility] aug betamethaso ne dipropionat e 0.05 % ointment 09-19 16:09: 41 Yes Apply to area(s) daily. [facility] aug betamethaso ne dipropionat e 0.05 % ointment 09-19 16:09: 41 Yes Apply to area(s) daily. [facility] ketorolac 10 mg tablet 09-19 00:00: 00 Yes [id number] 10mg Take 1 tablet by mouth every 6 (six) hours as needed for Pain (scale 4-6). [facility] ketorolac 10 mg tablet 09-19 00:00: 00 Yes [id number] 10mg Take 1 tablet by mouth every 6 (six) hours as needed for Pain (scale 4-6). [facility] ketorolac 10 mg tablet 09-19 00:00: 00 Yes [id number] 10mg Take 1 tablet by mouth every 6 (six) hours as needed for Pain (scale 4-6). [facility] ketorolac 10 mg tablet 09-19 00:00: 00 Yes [id number] 10mg Take 1 tablet by mouth every 6 (six) hours as needed for Pain (scale 4-6). [facility] ket[facility]olac 10 mg tablet 09-19 00:00: 00 Yes [id number] 10mg Take 1 tablet by mouth every 6 (six) hours as needed for Pain (scale 4-6). [facility] ket[facility] 10 mg tablet 09-19 00:00: 00 Yes [id number] 10mg Take 1 tablet by mouth every 6 (six) hours as needed for Pain (scale 4-6). [facility] ket[facility]ac 10 mg tablet 09-19 00:00: 00 Yes [id number] 10mg Take 1 tablet by mouth every 6 (six) hours as needed for Pain (scale 4-6). [facility] ket[facility]ac 10 mg tablet 09-19 00:00: 00 Yes [id number] 10mg Take 1 tablet by mouth every 6 (six) hours as needed for Pain (scale 4-6). [facility] ket[facility]ac 10 mg tablet 09-19 00:00: 00 Yes [id number] 10mg Take 1 tablet by mouth every 6 (six) hours as needed for Pain (scale 4-6). [facility] ketorolac 10 mg tablet 09-19 00:00: 00 Yes [id number] 10mg Take 1 tablet by mouth every 6 (six) hours as needed for Pain (scale 4-6). [facility] ketorolac 10 mg tablet 09-19 00:00: 00 Yes [id number] 10mg Take 1 tablet by mouth every 6 (six) hours as needed for Pain (scale 4-6). [facility] ketorolac 10 mg tablet 09-19 00:00: 00 Yes [id number] 10mg Take 1 tablet by mouth every 6 (six) hours as needed for Pain (scale 4-6). [facility] ketorolac 10 mg tablet 09-19 00:00: 00 Yes [id number] 10mg Take 1 tablet by mouth every 6 (six) hours as needed for Pain (scale 4-6). [facility] ketorolac 10 mg tablet 09-19 00:00: 00 Yes [id number] 10mg Take 1 tablet by mouth every 6 (six) hours as needed for Pain (scale 4-6). [facility] ket[facility]ac 10 mg tablet 09-19 00:00: 00 Yes [id number] 10mg Take 1 tablet by mouth every 6 (six) hours as needed for Pain (scale 4-6). [facility] ket[facility]ac 10 mg tablet 09-19 00:00: 00 Yes [id number] 10mg Take 1 tablet by mouth every 6 (six) hours as needed for Pain (scale 4-6). [facility] ket[facility]ac 10 mg tablet 09-19 00:00: 00 Yes [id number] 10mg Take 1 tablet by mouth every 6 (six) hours as needed for Pain (scale 4-6). [facility] ketorolac 10 mg tablet 09-19 00:00: 00 Yes [id number] 10mg Take 1 tablet by mouth every 6 (six) hours as needed for Pain (scale 4-6). [facility] ketorolac 10 mg tablet 09-19 00:00: 00 Yes [id number] 10mg Take 1 tablet by mouth every 6 (six) hours as needed for Pain (scale 4-6). [facility] ketorolac 10 mg tablet 09-19 00:00: 00 Yes [id number] 10mg Take 1 tablet by mouth every 6 (six) hours as needed for Pain (scale 4-6). [facility] ketorolac 10 mg tablet 09-19 00:00: 00 Yes [id number] 10mg Take 1 tablet by mouth every 6 (six) hours as needed for Pain (scale 4-6). [facility] ketorolac 10 mg tablet 09-19 00:00: 00 Yes [id number] 10mg Take 1 tablet by mouth every 6 (six) hours as needed for Pain (scale 4-6). [facility] ketorolac 10 mg tablet 09-19 00:00: 00 Yes [id number] 10mg Take 1 tablet by mouth every 6 (six) hours as needed for Pain (scale 4-6). [facility] ketorolac 10 mg tablet 09-19 00:00: 00 Yes [id number] 10mg Take 1 tablet by mouth every 6 (six) hours as needed for Pain (scale 4-6). [facility] ketorolac 10 mg tablet 09-19 00:00: 00 Yes [id number] 10mg Take 1 tablet by mouth every 6 (six) hours as needed for Pain (scale 4-6). [facility] ketorolac 10 mg tablet 09-19 00:00: 00 Yes [id number] 10mg Take 1 tablet by mouth every 6 (six) hours as needed for Pain (scale 4-6). [facility] ketorolac 10 mg tablet 09-19 00:00: 00 Yes [id number] 10mg Take 1 tablet by mouth every 6 (six) hours as needed for Pain (scale 4-6). [facility] ketorolac 10 mg tablet 09-19 00:00: 00 Yes [id number] 10mg Take 1 tablet by mouth every 6 (six) hours as needed for Pain (scale 4-6). [facility] ketorolac 10 mg tablet 09-19 00:00: 00 Yes [id number] 10mg Take 1 tablet by mouth every 6 (six) hours as needed for Pain (scale 4-6). [facility] ketorolac 10 mg tablet 09-19 00:00: 00 Yes [id number] 10mg Take 1 tablet by mouth every 6 (six) hours as needed for Pain (scale 4-6). [facility] ibuprofen (IBU) 800 mg tablet 07-28 15:22: 33 Yes IBU 800 mg tablet [facility] ibuprofen (IBU) 800 mg tablet 07-28 15:22: 33 Yes IBU 800 mg tablet [facility] ESOMEPRAZOL E 40 mg capsule 05-27 00:00: 00 Yes [id number] TAKE 1 CAPSULE DAILY WITH BREAKFAST [facility] ESOMEPRAZOL E 40 mg capsule 05-27 00:00: 00 Yes [id number] TAKE 1 CAPSULE DAILY WITH BREAKFAST [facility] ESOMEPRAZOL E 40 mg capsule 05-27 00:00: 00 11-05 00:00 :00 No [id number] TAKE 1 CAPSULE DAILY WITH BREAKFAST [facility] ESOMEPRAZOL E 40 mg capsule 05-27 00:00: 00 11-05 00:00 :00 No [id number] TAKE 1 CAPSULE DAILY WITH BREAKFAST [facility] acetaminoph en-codeine 300-30 mg tablet 06-11 00:00: 00 Yes TAKE 1 TABLET BY MOUTH TWICE A DAY [facility] acetaminoph en-codeine 300-30 mg tablet 06-11 00:00: 00 Yes TAKE 1 TABLET BY MOUTH TWICE A DAY [facility] acetaminoph en-codeine 300-30 mg tablet 06-11 00:00: 00 Yes TAKE 1 TABLET BY MOUTH TWICE A DAY [facility] acetaminoph en-codeine 300-30 mg tablet 06-11 00:00: 00 Yes TAKE 1 TABLET BY MOUTH TWICE A DAY [facility] acetaminoph en-codeine 300-30 mg tablet 06-11 00:00: 00 Yes TAKE 1 TABLET BY MOUTH TWICE A DAY [facility] acetaminoph en-codeine 300-30 mg tablet 06-11 00:00: 00 Yes TAKE 1 TABLET BY MOUTH TWICE A DAY [facility] acetaminoph en-codeine 300-30 mg tablet 06-11 00:00: 00 Yes TAKE 1 TABLET BY MOUTH TWICE A DAY [facility] acetaminoph en-codeine 300-30 mg tablet 06-11 00:00: 00 Yes TAKE 1 TABLET BY MOUTH TWICE A DAY [facility] acetaminoph en-codeine 300-30 mg tablet 06-11 00:00: 00 Yes TAKE 1 TABLET BY MOUTH TWICE A DAY [facility] acetaminoph en-codeine 300-30 mg tablet 06-11 00:00: 00 Yes TAKE 1 TABLET BY MOUTH TWICE A DAY [facility] acetaminoph en-codeine 300-30 mg tablet 06-11 00:00: 00 Yes TAKE 1 TABLET BY MOUTH TWICE A DAY [facility] acetaminoph en-codeine 300-30 mg tablet 06-11 00:00: 00 Yes TAKE 1 TABLET BY MOUTH TWICE A DAY [facility] acetaminoph en-codeine 300-30 mg tablet 06-11 00:00: 00 Yes TAKE 1 TABLET BY MOUTH TWICE A DAY [facility] acetaminoph en-codeine 300-30 mg tablet 06-11 00:00: 00 Yes TAKE 1 TABLET BY MOUTH TWICE A DAY [facility] acetaminoph en-codeine 300-30 mg tablet 06-11 00:00: 00 Yes TAKE 1 TABLET BY MOUTH TWICE A DAY [facility] acetaminoph en-codeine 300-30 mg tablet 06-11 00:00: 00 Yes TAKE 1 TABLET BY MOUTH TWICE A DAY [facility] acetaminoph en-codeine 300-30 mg tablet 06-11 00:00: 00 Yes TAKE 1 TABLET BY MOUTH TWICE A DAY [facility] acetaminoph en-codeine 300-30 mg tablet 06-11 00:00: 00 Yes TAKE 1 TABLET BY MOUTH TWICE A DAY [facility] acetaminoph en-codeine 300-30 mg tablet 06-11 00:00: 00 Yes TAKE 1 TABLET BY MOUTH TWICE A DAY [facility] acetaminoph en-codeine 300-30 mg tablet 06-11 00:00: 00 Yes TAKE 1 TABLET BY MOUTH TWICE A DAY [facility] acetaminoph en-codeine 300-30 mg tablet 06-11 00:00: 00 Yes TAKE 1 TABLET BY MOUTH TWICE A DAY [facility] acetaminoph en-codeine 300-30 mg tablet 06-11 00:00: 00 Yes TAKE 1 TABLET BY MOUTH TWICE A DAY [facility] acetaminoph en-codeine 300-30 mg tablet 06-11 00:00: 00 Yes TAKE 1 TABLET BY MOUTH TWICE A DAY [facility] acetaminoph en-codeine 300-30 mg tablet 06-11 00:00: 00 Yes TAKE 1 TABLET BY MOUTH TWICE A DAY [facility] acetaminoph en-codeine 300-30 mg tablet 06-11 00:00: 00 Yes TAKE 1 TABLET BY MOUTH TWICE A DAY [facility] acetaminoph en-codeine 300-30 mg tablet 06-11 00:00: 00 Yes TAKE 1 TABLET BY MOUTH TWICE A DAY [facility] acetaminoph en-codeine 300-30 mg tablet 06-11 00:00: 00 Yes TAKE 1 TABLET BY MOUTH TWICE A DAY [facility] acetaminoph en-codeine 300-30 mg tablet 06-11 00:00: 00 Yes TAKE 1 TABLET BY MOUTH TWICE A DAY [facility] acetaminoph en-codeine 300-30 mg tablet 06-11 00:00: 00 Yes TAKE 1 TABLET BY MOUTH TWICE A DAY [facility] acetaminoph en-codeine 300-30 mg tablet 06-11 00:00: 00 Yes TAKE 1 TABLET BY MOUTH TWICE A DAY [facility] acetaminoph en-codeine 300-30 mg tablet 06-11 00:00: 00 Yes TAKE 1 TABLET BY MOUTH TWICE A DAY [facility] Vital Signs Vital Name Observation Time Observation Value Comments S ource Systolic blood pressure 2019-09-03 16:10:00 113 mm[facility]Hg[facility] Diastolic blood pressure 2019-09-03 16:10:00 85 mm[Hg[facility] Heart rate 2019-09-03 16:10:00 84 /min [facility] Body temperature 2019-09-03 16:10:00 36.83 [place] [facility] Respiratory rate 2019-09-03 16:10:00 18 /min [facility] Body height 2019-09-03 16:10:00 188 cm [facility] Body weight 2019-09-03 16:10:00 111.131 kg [facility] BMI 2019-09-03 16:10:00 31.46 kg/m2 [facility] Oxygen saturation in Arterial blood by Pulse oximetry 2019-09-03 16:10:00 100 /min [facility] Systolic blood pressure 2019-09-03 16:10:00 113 mm[Hg[facility] Diastolic blood pressure 2019-09-03 16:10:00 85 mm[Hg[facility] Heart rate 2019-09-03 16:10:00 84 /min [facility] Body temperature 2019-09-03 16:10:00 36.83 [place] [facility] Respiratory rate 2019-09-03 16:10:00 18 /min [facility] Body height 2019-09-03 16:10:00 188 cm [facility] Body weight 2019-09-03 16:10:00 111.131 kg [facility] BMI 2019-09-03 16:10:00 31.46 kg/m2 [facility] Oxygen saturation in Arterial blood by Pulse oximetry 2019-09-03 16:10:00 100 /min [facility] Systolic blood pressure 2018-11-05 18:15:00 132 mm[Hg[facility] Diastolic blood pressure 2018-11-05 18:15:00 80 mm[Hg[facility] Body weight 2018-11-05 18:15:00 103.874 kg [facility] BMI 2018-11-05 18:15:00 29.40 kg/m2 [facility] Procedures Procedure Date / Time Performed Performing Clinician Source MEDICATION CORRESPONDENCE 2018-10-23 05:01:00 Do ctor Unassigned, [place] [facility] [id number] CONSENT 2018-03-14 06:01:00 Doctor Unas signed, [place] [facility] Encounters Start Date/Time End Date/Time Encounter Type Admission Type Attending Clinicians Care Facility Care Department Encounter ID Source 2020-08-22 00:00:00 2020-08-22 00:00:00 Deny Angel [facility] One [id number] [id number] [id number] [facility] 2020-08-22 00:00:00 2020-08-22 [facility]00[facility] [id number] 4.2.7.2.686 [id number] 2020-05-27 00:00:00 2020-05-27 00:00:00 Patient Outreach Konstantin Buck [facility] [id number] [id number] [id number] [facility] 2020-05-27 00:00:00 2020-05-27 00:00:00 Patient Outreach [facility] [id number] 350.1.13.10 4.2.7.2.686 [id number] 2020-03-26 00:00:00 2020-03-26 00:00:00 Saige Rhodes [facility] One [id number] [id number] 4.2.7.2.686 [id number] [facility] 2020-03-26 00:00:00 2020-03-26 00:00:00 Saige Rhodes [facility] One [id number] 350.1.13.10 4.2.7.2.686 [id number] 2020-03-02 00:00:00 2020-03-02 00:00:00 Saige Rhodes [facility] One [id number] [id number] 4.2.7.2.686 [id number] [facility] 2020-03-02 00:00:00 2020-03-02 00:00:00 Refill Deny Rhodes [facility] Building One [id number] 350.1.13.10 4.2.7.2.686 [id number] 2019-12-29 00:00:00 2019-12-29 00:00:00 Refill Deny Rhodes [facility] One [id number] 350.1.13.10 4.2.7.2.686 [id number] [facility] 2019-12-29 00:00:00 2019-12-29 00:00:00 Refill Carmelo [facility] One [id number] 350.1.13.10 4.2.7.2.686 [id number] 2019-12-05 00:00:00 2019-12-05 00:00:00 Refill Carmelo Deny [facility] One [id number] [id number] 4.2.7.2.686 [id number] [facility] 2019-12-05 00:00:00 2019-12-05 00:00:00 Refill Carmelo [facility] One [id number] 350.1.13.10 4.2.7.2.686 [id number] 2019-11-12 00:00:00 2019-11-12 00:00:00 Refill Doctor Unassigned, [place] [facility] One [id number] 350.1.13.10 4.2.7.2.686 [id number] [facility] 2019-11-12 00:00:00 2019-11-12 00:00:00 Refill Doctor Unassigned, [place] [facility] One [id number] 350.1.13.10 4.2.7.2.686 [id number] 2019-09-11 00:00:00 2019-09-11 00:00:00 Patient Secure Deny [facility] [id number] [id number] 4.2.7.2.686 [id number] [facility] 2019-09-11 00:00:00 2019-09-11 00:00:00 Patient Secure Deny [facility] [id number] 350.1.13.10 4.2.7.2.686 [id number] 2019-09-05 00:00:00 2019-09-05 00:00:00 Patient Secure Deny [facility] [id number] 350.1.13.10 4.2.7.2.686 [id number] 2019-09-05 00:00:00 2019-09-05 00:00:00 Patient Secure Deny [facility] [id number] 350.1.13.10 4.2.7.2.686 [id number] [facility] 2019-09-04 00:00:00 2019-09-04 00:00:00 Telephone Pretty Sharpe [facility] [id number] 350.1.13.10 4.2.7.2.686 [id number] 2019-09-04 00:00:00 2019-09-04 00:00:00 Telephone Pretty Sharpe [facility] [id number] 350.1.13.10 4.2.7.2.686 [id number] [facility] 2019-09-04 00:00:00 2019-09-04 00:00:00 Patient Secure Msg Doctor Unassigned, [place] [facility] 1..114 350.1.13.10 4.2.7.2.686 [id number] [facility] 2019-09-03 10:25:23 2019-09-03 10:45:23 [facility] 1..114 350.1.13.10 4.2.7.2.686 [id number] 2019-09-03 10:25:23 2019-09-03 10:45:23 Urgent Care Po, Acute Care [facility] Office Building One 1.114 350.1.13.10 4.2.7.2.686 [id number] [facility] 2019-09-03 10:40:00 2019-09-03 10:40:00 Outpatient R [facility] [id number] [facility] 2019-08-24 00:00:00 2019-08-24 00:00:00 [facility] 1.114 350.1.13.10 4.2.7.2.686 [id number] 2019-08-24 00:00:00 2019-08-24 00:00:00 Saige Rhodes [facility] Office Building One ..114 350.1.13.10 4.2.7.2.686 [id number] [facility] 2019-08-01 00:00:00 2019-08-01 00:00:00 [facility] 1..114 350.1.13.10 4.2.7.2.686 [id number] [facility] 2019-08-01 00:00:00 2019-08-01 00:00:00 Refill Deny Rhodes [facility] Office Building One 1.2.840.114 350.1.13.10 4.2.7.2.686 [id number] [id number] 2019-08-01 00:00:00 2019-08-01 00:00:00 Telephone Deny Rhodes [facility] Office Building One 1.2.840.114 350.1.13.10 4.2.7.2.686 [id number] [facility] 2019-08-01 00:00:00 2019-08-01 00:00:00 Telephone Deny Rhodes [facility] Office Building One 1.2.840.114 350.1.13.10 4.2.7.2.686 [id number] 044 [id number] 2019-07-29 00:00:00 2019-07-29 00:00:00 Refill Doctor Unassigned, Paola [facility] Office Building One 1.2.840.114 350.1.13.10 4.2.7.2.686 [id number] [facility] 2019-07-29 00:00:00 2019-07-29 00:00:00 Refill Doctor Unassigned, Paola [facility] Office Building One 1.2.840.114 350.1.13.10 4.2.7.2.686 [id number] 044 [id number] 2019-07-09 00:00:00 2019-07-09 00:00:00 Telephone Deny Rhodes [facility] Building 1.2.840.114 350.1.13.10 4.2.7.2.686 [id number] [facility] 2019-07-09 00:00:00 2019-07-09 00:00:00 Telephone Rhodes, [facility] nal Building 1.2.840.114 350.1.13.10 4.2.7.2.686 [id number] 2019-06-30 00:00:00 2019-06-30 00:00:00 Patient Secure Msg Rhodes [facility] Office Building One 1.2.840.114 350.1.13.10 4.2.7.2.686 [id number] [facility] 2019-06-30 00:00:00 2019-06-30 00:00:00 Patient Secure Msg Rhodes [facility] Office Building One 1.2.840.114 350.1.13.10 4.2.7.2.686 [id number] 044 [id number] 2019-06-22 00:00:00 2019-06-22 00:00:00 Refill Carmelo [facility] Office Building One 1.2840.114 350.1.13.10 4.2.7.2.686 [id number] [facility] 2019-06-03 00:00:00 2019-06-03 00:00:00 Patient Secure Msg Rhodes [facility] Office Building One 1.2840.114 350.1.13.10 4.2.7.2.686 [id number] [facility] 2019-05-29 00:00:00 2019-05-29 00:00:00 Refill Carmelo [facility] Office Building One 1.2840.114 350.1.13.10 4.2.7.2.686 [id number] 044 [id number] [facility] 2019-05-05 00:00:00 2019-05-05 00:00:00 Refill Carmelo [facility] Office Building One 1.2840.114 350.1.13.10 4.2.7.2.686 [id number] [facility] 2019-04-07 00:00:00 2019-04-07 00:00:00 Refill Deny Rhodes [facility] Office Building One 1..840.114 350.1.13.10 4.2.7.2.686 [id number] [facility] 2019-01-05 10:30:00 2019-01-05 11:53:02 Outpatient GIN JONES [facility] [id number] [facility] 2018-11-27 00:00:00 2018-11-27 00:00:00 Refill Carmelo [facility] Office Building One 1.840.114 350.1.13.10 4.2.7.2.686 [id number] [facility] 2018-11-05 12:58:34 2018-11-05 13:31:40 Office Visit Grace Nanci [facility] Office Building One 1.840.114 350.1.13.10 4.2.7.2.686 [id number] [facility] 2018-11-04 00:00:00 2018-11-04 00:00:00 Telephone Carmelo Deny [facility] Office Building One 1.84.114 350.1.13.10 4.2.7.2.686 [id number] [id number] [facility] 2018-10-29 00:00:00 2018-10-29 00:00:00 Refill Carmelo Deny [facility] Office Building One 1.84.114 350.1.13.10 4.2.7.2.686 [id number] [facility] 2018-10-23 00:00:00 2018-10-23 00:00:00 Orders Only Doctor Unassigned, Paola [facility] 1.2.840.114 350.1.13.10 4.2.7.2.686 [id number] [facility] 2018-09-19 10:28:05 2018-09-19 11:25:00 Emergency X SANDRAFELICIA VASQUEZ [facility] [id number] [facility] 2018-03-14 00:00:00 2018-03-14 00:00:00 Orders Only Doctor Unassigned, Paola [facility] 1.2.840.114 350.1.13.10 4.2.7.2.686 [id number] [facility]
--- NOTE | 2023-03-05 15:12 | RAD REPORT ---
[facility] 2[facility]54 [facility] CLINICAL HISTORY: COUGH COMPARISON: Chest Pa And Lat (2 Views) dated 05/23/2021; Chest Single View dated 03/07/2021; Chest Pa And Lat (2 Views) dated 10/28/2020; Chest Pa And Lat (2 Views) dated 09/17/2020 TECHNIQUE: Portable AP view of the chest. FINDINGS: Progressive left basilar patchy airspace opacity with layering left small pleural effusion . No pneumothorax. The cardiomediastinal contours are unremarkable. IMPRESSION: Progressive left pleural-parenchymal process as above concerning for pneumonia.
--- NOTE | 2023-03-05 15:26 | EDPHYS ---
Physician Documentation [facility] Name: Delmer Doan Age: 52 yrs Sex: Male : 1970 Arrival Date: 03/05/2023 Time: 13:35 Bed IW2 Private MD: ED Physician Senthil Trinidad HPI: 03/05 14:04 This 52 yrs old Male presents to ER via Ambulatory with complaints of Flu Symptoms. snw 14:04 Onset: The symptoms/episode began/occurred acutely. Associated signs and symptoms: snw Pertinent positives: The patient does not have any pertinent positive signs or symptoms associated with pediatric illness. The patient has not experienced similar symptoms in the past. Historical: - Allergies: 13:48 No Known Allergies; bp - Home Meds: 13:48 Edmond 5-325 mg Oral tab twice a day [Active]; pregabalin 100 mg Oral cap 1 cap 2 times bp per day [Active]; - PMHx: 13:48 Arthritis; Hyperlipidemia; bp - Immunization history:: Adult Immunizations up to date. - Social history:: Smoking status: Patient denies any tobacco usage or history of. ROS: 14:03 Constitutional: Negative for fever, chills, and weight loss, Eyes: Negative for injury, snw pain, redness, and discharge, ENT: Negative for injury, pain, and discharge, Neck: Negative for injury, pain, and swelling, Cardiovascular: Negative for chest pain, palpitations, and edema, Respiratory: Positive for shortness of breath, cough, wheezing, and pleuritic chest pain on the left x 1 week Abdomen/GI: Negative for abdominal pain, nausea, vomiting, diarrhea, and constipation, Back: Negative for injury and pain, : Negative for injury, bleeding, discharge, and swelling, MS/Extremity: Negative for injury and deformity, Skin: Negative for injury, rash, and discoloration, Neuro: Negative for headache, weakness, numbness, tingling, and seizure, Psych: Negative for depression, anxiety, suicide ideation, homicidal ideation, and hallucinations, Exam: 14:03 Constitutional: This is a well developed, well nourished patient who is awake, alert, snw and in no acute distress. Head/Face: Normocephalic, atraumatic. Eyes: Pupils equal round and reactive to light, extra-ocular motions intact. Lids and lashes normal. Conjunctiva and sclera are non-icteric and not injected. Cornea within normal limits. Periorbital areas with no swelling, redness, or edema. ENT: Nares patent. No nasal discharge, no septal abnormalities noted. Tympanic membranes are normal and external auditory canals are clear. Oropharynx with no redness, swelling, or masses, exudates, or evidence of obstruction, uvula midline. Mucous membranes moist. Neck: Trachea midline, no thyromegaly or masses palpated, and no cervical lymphadenopathy. Supple, full range of motion without nuchal rigidity, or vertebral point tenderness. No Meningismus. Chest/axilla: Normal chest wall appearance and motion. Nontender with no deformity. No lesions are appreciated. Cardiovascular: Regular rate and rhythm with a normal S1 and S2. No gallops, murmurs, or rubs. Normal PMI, no JVD. No pulse deficits. Abdomen/GI: Soft, non-tender, with normal bowel sounds. No distension or tympany. No guarding or rebound. No evidence of tenderness throughout. Back: No spinal tenderness. No costovertebral tenderness. Full range of motion. Skin: Warm, dry with normal turgor. Normal color with no rashes, no lesions, and no evidence of cellulitis. MS/ Extremity: Pulses equal, no cyanosis. Neurovascular intact. Full, normal range of motion. Neuro: Awake and alert, GCS 15, oriented to person, place, time, and situation. Cranial nerves II-XII grossly intact. Motor strength 5/5 in all extremities. Sensory grossly intact. Cerebellar exam normal. Normal gait. Psych: Awake, alert, with orientation to person, place and time. Behavior, mood, and affect are within normal limits. 14:03 Respiratory: the patient does not display signs of respiratory distress, Respirations: normal, Breath sounds: decreased breath sounds, that are moderate, are heard in the left posterior upper lobe and left posterior lower lobe, Vital Signs: 13:47 BP 124 / 96; Pulse 74; Resp 16; Temp 97.9; Pulse Ox 100% ; Weight 102.06 kg; Height 6 bp ft. 2 in. ; 13:47 Body Mass Index 28.89 (102.06 kg, 187.96 cm) bp MDM: 13:43 Patient medically screened. snw 15:29 Differential diagnosis: viral Infection, bacterial infection. Data reviewed: vital snw signs, nurses notes, radiologic studies, plain films, left lower lobe pneumonia. I considered the following discharge prescriptions or medication management in the emergency department Medications were administered in the Emergency Department. See MAR. Counseling: I had a detailed discussion with the patient and/or guardian regarding the historical points, exam findings, and any diagnostic results supporting the discharge/admit diagnosis, radiology results, the need for outpatient follow up, for definitive care, to return to the emergency department if symptoms worsen or persist or if there are any questions or concerns that arise at home. Response to treatment: There is no appreciated change of the patient's symptoms at this time. Special discussion: Based on the history and exam findings, there is no indication for further emergent testing or inpatient evaluation. I discussed with the patient/guardian the need to see the primary care provider for further evaluation of the symptoms. 03/05 13:48 Order name: Chest Pa And Lat (2 Views) XRAY; Complete Time: 15:13 snw Administered Medications: 16:00 Drug: Rocephin (cefTRIAXone) IM 1 grams IM once Route: IM; Site: right gluteus; bp 16:12 Follow up: Response: No adverse reaction bp 16:00 Drug: AZITHromycin PO 500 mg PO once Route: PO; bp 16:12 Follow up: Response: No adverse reaction bp Disposition: 17:08 Co-signature as Attending Physician, Senthil Trinidad MD I reviewed the patient's care rt provided by the Advanced Practice Provider and agree with the diagnosis and treatment plan. Disposition Summary: 03/05/23 15:26 Discharge Ordered Notes: Location: Home snw Condition: Stable snw Diagnosis - Unspecified bacterial pneumonia snw Followup: snw - With: Private Physician - When: 2 - 3 days - Reason: Recheck today's complaints, Continuance of care, Re-evaluation by your physician Followup: snw - With: Emergency Department - When: As needed - Reason: Worsening of condition Discharge Instructions: - Discharge Summary Sheet snw - Community-Acquired Pneumonia, Adult snw Forms: - Work release form snw - Medication Reconciliation Form snw - Thank You Letter snw - Antibiotic Education snw - Prescription Opioid Use snw - Patient Portal Instructions snw - Leadership Thank You Letter snw Prescriptions: - albuterol sulfate 90 mcg/actuation Inhalation HFA Aerosol Inhaler - inhale 2 puff INHALATION route every 4 to 6 hours for 7 days as needed for snw bronchospasm; 1 Unspecified; Refills: 0, Product Selection Permitted - cefdinir 300 mg Oral capsule - take 1 capsule ORAL route 2 times per day for 10 days; 20 capsule; Refills: 0, snw Product Selection Permitted - Zithromax 500 mg Oral Tablet - take 1 tablet ORAL route once daily for 5 days; 5 tablet; Refills: 0, Product snw Selection Permitted Signatures: Dispatcher [employer] EDFiona Solano, BRENDA-C BUSINESS ANALYST INTERN-Csnw Jad Javier, JAY JAY RN Senthil Prado MD MD rt
--- NOTE | 2023-03-05 15:26 | ER ---
Nurse's Notes [facility] Name: Delmer Doan Age: 52 yrs Sex: Male : 1970 Arrival Date: 03/05/2023 Time: 13:35 Bed IW2 Private MD: Diagnosis: Unspecified bacterial pneumonia Presentation: 03/05 13:47 Chief complaint: Patient states: 1 WEEK LEFT RIB PAIN WITH COUGH. Coronavirus screen: bp At this time, the client does not indicate any symptoms associated with coronavirus-19. Ebola Screen: No symptoms or risks identified at this time. Initial Sepsis Screen: Does the patient meet any 2 criteria? No. Patient's initial sepsis screen is negative. Does the patient have a suspected source of infection? No. Patient's initial sepsis screen is negative. Risk Assessment: Do you want to hurt yourself or someone else? Patient reports no desire to harm self or others. Onset of symptoms is unknown. 13:47 Method Of Arrival: Ambulatory bp 13:47 Acuity: ANITHA 4 bp Triage Assessment: 13:48 General: Appears in no apparent distress. uncomfortable, Behavior is calm, cooperative, bp appropriate for age. Pain: Complains of pain in left lateral anterior chest. Historical: - Allergies: 13:48 No Known Allergies; bp - Home Meds: 13:48 [place] 5-325 mg Oral tab twice a day [Active]; pregabalin 100 mg Oral cap 1 cap 2 times bp per day [Active]; - PMHx: 13:48 Arthritis; Hyperlipidemia; bp - Immunization history:: Adult Immunizations up to date. - Social history:: Smoking status: Patient denies any tobacco usage or history of. Screenin:12 [facility] ED Fall Risk Assessment (Adult) History of falling in the last 3 months, bp including since admission No falls in past 3 months (0 pts). Abuse screen: Denies threats or abuse. Denies injuries from another. Nutritional screening: No deficits noted. Tuberculosis screening: No symptoms or risk factors identified. Vital Signs: 13:47 BP 124 / 96; Pulse 74; Resp 16; Temp 97.9; Pulse Ox 100% ; Weight 102.06 kg; Height 6 bp ft. 2 in. ; 13:47 Body Mass Index 28.89 (102.06 kg, 187.96 cm) bp ED Course: 13:38 Patient arrived in ED. ts1 13:42 Fiona Mason F[facility]-C [facility]. snw 13:43 Senthil Trinidad MD is Attending Physician. snw 13:48 Triage completed. bp 13:48 Arm band placed on. bp 14:55 Chest Pa And Lat (2 Views) XRAY In Process Unspecified. EDMS 16:12 Patient has correct armband on for positive identification. bp 16:12 No provider procedures requiring assistance completed. Patient did not have IV access bp during this emergency room visit. Administered Medications: 16:00 Drug: Rocephin (cefTRIAXone) IM 1 grams IM once Route: IM; Site: right gluteus; bp 16:12 Follow up: Response: No adverse reaction bp 16:00 Drug: AZITHromycin PO 500 mg PO once Route: PO; bp 16:12 Follow up: Response: No adverse reaction bp Outcome: 15:26 Discharge ordered by . snw 16:12 Discharged to home ambulatory, bp 16:12 Condition: stable 16:12 Discharge instructions given to patient, Instructed on discharge instructions, follow up and referral plans. medication usage, Demonstrated understanding of instructions, follow-up care, medications, Prescriptions given X 3, 16:13 Patient left the ED. bp Signatures: Dispatcher [employer] EDMS Fiona Mason FNP-C MICROSCOPIST-Csnw Jad Javier, RN RN Tara Fang, JOBY PAS ts1
[2023-03-05 17:13] VITALS: BP 124/96; TEMP 97.9; O2SAT 100
== END ==
LOC: ER 13:35
DX: J15.9 Unspecified bacterial pneumonia (principal); E78.5 Hyperlipidemia, unspecified
CPT/HCPCS: 71046; 96372; 99284; J2001; J0696

== ENCOUNTER → 2023-03-17 | Emergency (ER) | payer OTHER ==
--- OUTSIDE RECORDS SUMMARY | 2023-03-17 05:08 | XMS REPORT | Continuity of Care Document ---
Author Name Unknown Address [address] [facility] [address] [place] [address] [facility] Address [address] [facility] [address] [place] [address] Care Team Providers Care Content Checker Name Role Phone Deny Rhodes MD Primary Care Physician [phone] Deny Rhodes MD Attending Clinician [phone] Konstantin Buck DO Attending Clinician [phone] Doctor Unassigned, [place] Attending Clinician Pretty Maddox RN Attending Clinician Tracie rafael Vitale, [facility] Attending Clinician UnaHayde Guillory PA-C Attending Clinician [phone] HAYDE SOFIA Attending Clinician Unavailable GIN FRANCIS Attending Clinician Unavailable Nanci Ruiz Attending Clinician [phone] VASQUEZ FREDERICK Attending Clinician Unavailable Payers Payer Name Policy Type Policy Number Effective Date Expirati on Date Source Problems Condition Name Condition Details Condition Category Status Onset Date Resolution Date Last Treatment Date Treating Clinician Comments Source Other chronic pain Other chronic pain Disease Active 11-05 00:00: 00 [facility] Medication refill Medication refill Disease Active 11-05 00:00: 00 [facility] Medication refill Medication refill Disease Active 11-05 00:00: 00 [facility] Tobacco abuse Tobacco abuse Disease Active 3-16 00:00: 00 [facility] Acute maxillary sinusitis, recurrence not specified Acute maxillary sinusitis, recurrence not specified Disease Active 2017-03 2-15 00:00: 00 [facility] Elevated ALT measuremen t Elevated ALT measuremen t Disease Active 07-06 00:00: 00 [facility] Elevated platelet count Elevated platelet count Disease Active 07-06 00:00: 00 [facility] Creatinine elevation Creatinine elevation Disease Active 07-06 00:00: 00 [facility] [place]atre [place] Hyper[place]atre [place] Disease Active 07-06 00:00: 00 [facility] Creatinine elevation Creatinine elevation Disease Active 07-06 00:00: 00 [facility] Hypernatre [place] Hypernatre [place] Disease Active 07-06 00:00: 00 [facility] On food order expediter drug therapy On food order expediter drug therapy Disease Active 04-13 00:00: 00 [facility] Psoriatic arthritis Psoriatic arthritis Disease Active 04-13 00:00: 00 [facility] Gastro-eso phageal reflux disease with esophagiti s Gastro-eso phageal reflux disease with esophagiti s Disease Active 2014-03 0 00:00: 00 [facility] Hyperlipid emia Hyperlipid emia Disease Active 2014-03 00:00: 00 [facility] Allergies, Adverse Reactions, Alerts Allergy Name Allergy Type Status Severity Reaction(s) Onset Date Inactive Date Treating Clinician Comments Source NO KNOWN ALLERGIE S Drug Class Active [facility] Social History Social Habit Start Date Stop Date Quantity Comments Source [facility] of tobacco use Cigarette Smoker [facility] History of Social function 2019-10-16 00:00:00 2019-10-16 00:00:00 [facility] Exposure to SARS-CoV-2 (event) 2019-08-04 00:00:00 2019-09-03 11:00:00 Not sure [facility] Alcohol intake 2019-09-03 00:00:00 2019-09-03 00:00:00 Current non-drinker of alcohol (finding) [facility] Tobacco use and exposure 2015-10-29 00:00:00 2015-10-29 00:00:00 Smokeless tobacco non-user [facility] Cigarettes smoked current (pack per day) - Reported 2015-10-29 00:00:00 2015-10-29 00:00:00 [facility] Cigarette pack-years 2015-10-29 00:00:00 2015-10-29 00:00:00 [facility] Tobacco Comment 2015-10-29 00:00:00 2015-10-29 00:00:00 thinking about it [facility] Sex Assigned At 1970 00:00:00 1970 00:00:00 [facility] Smoking Status Start Date Stop Date Source Smokes tobacco daily 2015-10-29 00:00:00 [facility] Medications Ordered Medication Name Filled Medication Name Start Date Stop Date Current Medication? Ordering Clinician Indication Dosage Frequency Signature (SIG) Comments Components Source IBUPROFEN 800 mg tablet 2019-03 00:00: 00 Yes [id number] TAKE 1 TABLET BY MOUTH THREE TIMES A DAY WITH MEALS [facility] IBUPROFEN 800 mg tablet 2019-03 00:00: 00 Yes [id number] TAKE 1 TABLET BY MOUTH THREE TIMES A DAY WITH MEALS [facility] IBUPROFEN 800 mg tablet 2019-03 00:00: 00 Yes [id number] TAKE 1 TABLET BY MOUTH THREE TIMES A DAY WITH MEALS [facility] IBUPROFEN 800 mg tablet 2019-03 00:00: 00 Yes [id number] TAKE 1 TABLET BY MOUTH THREE TIMES A DAY WITH MEALS [facility] IBUPROFEN 800 mg tablet 2019-03 00:00: 00 Yes [id number] TAKE 1 TABLET BY MOUTH THREE TIMES A DAY WITH MEALS [facility] IBUPROFEN 800 mg tablet 2019-03 00:00: 00 03-02 00:00 :00 No [id number] TAKE 1 TABLET BY MOUTH THREE TIMES A DAY WITH MEALS [facility] IBUPROFEN 800 mg tablet 12-04 00:00: 00 Yes [id number] TAKE 1 TABLET BY MOUTH THREE TIMES A DAY WITH MEALS [facility] IBUPROFEN 800 mg tablet 2020-0 9-25 00:00: 00 -19 00:00 :00 No [id number] TAKE 1 TABLET BY MOUTH THREE TIMES A DAY WITH MEALS [facility] ibuprofen (IBU) 800 mg tablet 11-11 00:00: 00 Yes [id number] 800mg Take 1 tablet by mouth 3 (three) times daily with meals. [facility] aug betamethaso ne dipropionat e 0.05 % ointment 11-11 00:00: 00 Yes [id number] Apply to area(s) daily. [facility] gabapentin 300 mg capsule 11-11 00:00: 00 Yes [id number] 300mg Take 1 capsule by mouth 3 (three) times daily. [facility] aug betamethaso ne dipropionat e 0.05 % ointment 11-11 00:00: 00 Yes [id number] Apply to area(s) daily. [facility] gabapentin 300 mg capsule 11-11 00:00: 00 Yes [id number] 300mg Take 1 capsule by mouth 3 (three) times daily. [facility] aug betamethaso ne dipropionat e 0.05 % ointment 0 11-11 00:00: 00 Yes [id number] Apply to area(s) daily. [facility] gabapentin 300 mg capsule 11-11 00:00: 00 Yes [id number] 300mg Take 1 capsule by mouth 3 (three) times daily. [facility] aug betamethaso ne dipropionat e 0.05 % ointment 11-11 00:00: 00 Yes [id number] Apply to area(s) daily. [facility] gabapentin 300 mg capsule 0 11-11 00:00: 00 Yes [id number] 300mg Take 1 capsule by mouth 3 (three) times daily. [facility] aug betamethaso ne dipropionat e 0.05 % ointment 0 11-11 00:00: 00 Yes [id number] Apply to area(s) daily. [facility] gabapentin 300 mg capsule 11-11 00:00: 00 Yes [id number] 300mg Take 1 capsule by mouth 3 (three) times daily. [facility] aug betamethaso ne dipropionat e 0.05 % ointment 11-11 00:00: 00 Yes [id number] Apply to area(s) daily. [facility] gabapentin 300 mg capsule 11-11 00:00: 00 Yes [id number] 300mg Take 1 capsule by mouth 3 (three) times daily. [facility] aug betamethaso ne dipropionat e 0.05 % ointment 11-11 00:00: 00 Yes [id number] Apply to area(s) daily. [facility] gabapentin 300 mg capsule 11-11 00:00: 00 Yes [id number] 300mg Take 1 capsule by mouth 3 (three) times daily. [facility] ibuprofen (IBU) 800 mg tablet 11-11 00:00: 00 12-04 00:00 :00 No [id number] 800mg Take 1 tablet by mouth 3 (three) times daily with meals. [facility] albuterol 90 mcg/actuati on inhaler 09-07 00:00: 00 Yes 2{puff} Inhale 2 Puffs every 6 (six) hours as needed for Wheezing or Shortness of Breath. [facility] albuterol 90 mcg/actuati on inhaler 09-07 00:00: 00 Yes 2{puff} Inhale 2 Puffs every 6 (six) hours as needed for Wheezing or Shortness of Breath. [facility] albuterol 90 mcg/actuati on inhaler 09-07 00:00: 00 Yes 2{puff} Inhale 2 Puffs every 6 (six) hours as needed for Wheezing or Shortness of Breath. [facility] albuterol 90 mcg/actuati on inhaler 09-07 00:00: 00 Yes 2{puff} Inhale 2 Puffs every 6 (six) hours as needed for Wheezing or Shortness of Breath. [facility] albuterol 90 mcg/actuati on inhaler 0 09-07 00:00: 00 Yes 2{puff} Inhale 2 Puffs every 6 (six) hours as needed for Wheezing or Shortness of Breath. [facility] albuterol 90 mcg/actuati on inhaler 0 09-07 00:00: 00 Yes 2{puff} Inhale 2 Puffs every 6 (six) hours as needed for Wheezing or Shortness of Breath. [facility] albuterol 90 mcg/actuati on inhaler 0 09-07 00:00: 00 Yes 2{puff} Inhale 2 Puffs every 6 (six) hours as needed for Wheezing or Shortness of Breath. [facility] albuterol 90 mcg/actuati on inhaler 0 09-07 00:00: 00 Yes 2{puff} Inhale 2 Puffs every 6 (six) hours as needed for Wheezing or Shortness of Breath. [facility] albuterol 90 mcg/actuati on inhaler 0 09-07 00:00: 00 Yes 2{puff} Inhale 2 Puffs every 6 (six) hours as needed for Wheezing or Shortness of Breath. [facility] GABAPENTIN 300 mg capsule 2020-0 6-15 00:00: 00 Yes [id number] TAKE 1 CAPSULE BY MOUTH THREE TIMES A DAY [facility] GABAPENTIN 300 mg capsule 2020-0 6-15 00:00: 00 Yes [id number] TAKE 1 CAPSULE BY MOUTH THREE TIMES A DAY [facility] GABAPENTIN 300 mg capsule 2020-0 6-15 00:00: 00 Yes [id number] TAKE 1 CAPSULE BY MOUTH THREE TIMES A DAY [facility] GABAPENTIN 300 mg capsule 2020-0 6-15 00:00: 00 Yes [id number] TAKE 1 CAPSULE BY MOUTH THREE TIMES A DAY [facility] GABAPENTIN 300 mg capsule 2020-0 6-15 00:00: 00 Yes [id number] TAKE 1 CAPSULE BY MOUTH THREE TIMES A DAY [facility] GABAPENTIN 300 mg capsule 2020-0 6-15 00:00: 00 11-11 00:00 :00 No [id number] TAKE 1 CAPSULE BY MOUTH THREE TIMES A DAY [facility] aug betamethaso ne dipropionat e 0.05 % ointment 0 08-04 00:00: 00 Yes [id number] Apply to area(s) daily. [facility] aug betamethaso ne dipropionat e 0.05 % ointment 0 08-04 00:00: 00 Yes [id number] Apply to area(s) daily. [facility] aug betamethaso ne dipropionat e 0.05 % ointment 0 08-04 00:00: 00 Yes [id number] Apply to area(s) daily. [facility] aug betamethaso ne dipropionat e 0.05 % ointment 0 08-04 00:00: 00 Yes [id number] Apply to area(s) daily. [facility] aug betamethaso ne dipropionat e 0.05 % ointment 0 08-04 00:00: 00 Yes [id number] Apply to area(s) daily. [facility] aug betamethaso ne dipropionat e 0.05 % ointment 0 08-04 00:00: 00 Yes [id number] Apply to area(s) daily. [facility] aug betamethaso ne dipropionat e 0.05 % ointment 0 08-04 00:00: 00 11-11 00:00 :00 No [id number] Apply to area(s) daily. [facility] GABAPENTIN 300 mg capsule 07-31 00:00: 00 Yes [id number] TAKE 1 CAPSULE BY MOUTH THREE TIMES A DAY [facility] GABAPENTIN 300 mg capsule 07-31 00:00: 00 Yes [id number] TAKE 1 CAPSULE BY MOUTH THREE TIMES A DAY [facility] GABAPENTIN 300 mg capsule 07-31 00:00: 00 08-24 00:00 :00 No [id number] TAKE 1 CAPSULE BY MOUTH THREE TIMES A DAY [facility] varenicline (CHANTIX STARTING MONTH BOX) 0.5 mg (11)- 1 mg (42) tablet -20 00:00: 00 Yes [id number] Take one 0.5mg tab by mouth once daily for 3 days, then one 0.5mg tab twice daily for 4 days, then one 1mg tab twice daily. [facility] varenicline ([facility] STARTING [facility] 0.5 mg (11)- 1 mg (42) tablet 0 06-29 00:00: 00 Yes [id number] Take one 0.5mg tab by mouth once daily for 3 days, then one 0.5mg tab twice daily for 4 days, then one 1mg tab twice daily. [facility] varenicline ([facility]) 0.5 mg (11)- 1 mg (42) tablet 06-29 00:00: 00 Yes [id number] Take one 0.5mg tab by mouth once daily for 3 days, then one 0.5mg tab twice daily for 4 days, then one 1mg tab twice daily. [facility] varenicline ([facility]) 0.5 mg (11)- 1 mg (42) tablet 0 06-29 00:00: 00 Yes [id number] Take one 0.5mg tab by mouth once daily for 3 days, then one 0.5mg tab twice daily for 4 days, then one 1mg tab twice daily. [facility] varenicline ([facility]) 0.5 mg (11)- 1 mg (42) tablet 0 06-29 00:00: 00 Yes [id number] Take one 0.5mg tab by mouth once daily for 3 days, then one 0.5mg tab twice daily for 4 days, then one 1mg tab twice daily. [facility] varenicline ([facility]) 0.5 mg (11)- 1 mg (42) tablet 06-29 00:00: 00 Yes [id number] Take one 0.5mg tab by mouth once daily for 3 days, then one 0.5mg tab twice daily for 4 days, then one 1mg tab twice daily. [facility] varenicline ([facility]) 0.5 mg (11)- 1 mg (42) tablet 0 06-29 00:00: 00 Yes [id number] Take one 0.5mg tab by mouth once daily for 3 days, then one 0.5mg tab twice daily for 4 days, then one 1mg tab twice daily. [facility] varenicline ([facility]) 0.5 mg (11)- 1 mg (42) tablet 0 06-29 00:00: 00 Yes [id number] Take one 0.5mg tab by mouth once daily for 3 days, then one 0.5mg tab twice daily for 4 days, then one 1mg tab twice daily. [facility] varenicline ([facility]) 0.5 mg (11)- 1 mg (42) tablet 06-29 00:00: 00 Yes [id number] Take one 0.5mg tab by mouth once daily for 3 days, then one 0.5mg tab twice daily for 4 days, then one 1mg tab twice daily. [facility] varenicline ([facility]) 0.5 mg (11)- 1 mg (42) tablet 06-29 00:00: 00 Yes [id number] Take one 0.5mg tab by mouth once daily for 3 days, then one 0.5mg tab twice daily for 4 days, then one 1mg tab twice daily. [facility] varenicline ([facility]) 0.5 mg (11)- 1 mg (42) tablet 06-29 00:00: 00 Yes [id number] Take one 0.5mg tab by mouth once daily for 3 days, then one 0.5mg tab twice daily for 4 days, then one 1mg tab twice daily. [facility] varenicline ([facility]) 0.5 mg (11)- 1 mg (42) tablet 06-29 00:00: 00 Yes [id number] Take one 0.5mg tab by mouth once daily for 3 days, then one 0.5mg tab twice daily for 4 days, then one 1mg tab twice daily. [facility] varenicline ([facility]) 0.5 mg (11)- 1 mg (42) tablet 0 06-29 00:00: 00 Yes [id number] Take one 0.5mg tab by mouth once daily for 3 days, then one 0.5mg tab twice daily for 4 days, then one 1mg tab twice daily. [facility] varenicline ([facility]) 0.5 mg (11)- 1 mg (42) tablet 2019-0 06-29 00:00: 00 Yes [id number] Take one 0.5mg tab by mouth once daily for 3 days, then one 0.5mg tab twice daily for 4 days, then one 1mg tab twice daily. [facility] varenicline ([facility]) 0.5 mg (11)- 1 mg (42) tablet 06-29 00:00: 00 Yes [id number] Take one 0.5mg tab by mouth once daily for 3 days, then one 0.5mg tab twice daily for 4 days, then one 1mg tab twice daily. [facility] varenicline ([facility]) 0.5 mg (11)- 1 mg (42) tablet 06-29 00:00: 00 Yes [id number] Take one 0.5mg tab by mouth once daily for 3 days, then one 0.5mg tab twice daily for 4 days, then one 1mg tab twice daily. [facility] varenicline ([facility]) 0.5 mg (11)- 1 mg (42) tablet 0 06-29 00:00: 00 Yes [id number] Take one 0.5mg tab by mouth once daily for 3 days, then one 0.5mg tab twice daily for 4 days, then one 1mg tab twice daily. [facility] varenicline ([facility]) 0.5 mg (11)- 1 mg (42) tablet 0 06-29 00:00: 00 Yes [id number] Take one 0.5mg tab by mouth once daily for 3 days, then one 0.5mg tab twice daily for 4 days, then one 1mg tab twice daily. [facility] varenicline ([facility]) 0.5 mg (11)- 1 mg (42) tablet 0 4-20 00:00: 00 Yes [id number] Take one 0.5mg tab by mouth once daily for 3 days, then one 0.5mg tab twice daily for 4 days, then one 1mg tab twice daily. [facility] GABAPENTIN 300 mg capsule 0 12 00:00: 00 Yes [id number] TAKE 1 CAPSULE BY MOUTH THREE TIMES A DAY [facility] GABAPENTIN 300 mg capsule 0 12 00:00: 00 Yes [id number] TAKE 1 CAPSULE BY MOUTH THREE TIMES A DAY [facility] GABAPENTIN 300 mg capsule 0 12 00:00: 00 Yes [id number] TAKE 1 CAPSULE BY MOUTH THREE TIMES A DAY [facility] GABAPENTIN 300 mg capsule 0 12 00:00: 00 Yes [id number] TAKE 1 CAPSULE BY MOUTH THREE TIMES A DAY [facility] GABAPENTIN 300 mg capsule 0 12 00:00: 00 Yes [id number] TAKE 1 CAPSULE BY MOUTH THREE TIMES A DAY [facility] GABAPENTIN 300 mg capsule 0 12 00:00: 00 07-31 00:00 :00 No [id number] TAKE 1 CAPSULE BY MOUTH THREE TIMES A DAY [facility] ibuprofen (IBU) 800 mg tablet 0 24 14:09: 14 06-02 00:00 :00 No IBU 800 mg tablet [facility] ibuprofen (IBU) 800 mg tablet 0 24 00:00: 00 Yes [id number] 800mg Take 1 tablet by mouth 3 (three) times daily with meals. [facility] ibuprofen (IBU) 800 mg tablet 0 24 00:00: 00 Yes [id number] 800mg Take 1 tablet by mouth 3 (three) times daily with meals. [facility] ibuprofen (IBU) 800 mg tablet 0 24 00:00: 00 Yes [id number] 800mg Take 1 tablet by mouth 3 (three) times daily with meals. [facility] ibuprofen (IBU) 800 mg tablet 0 24 00:00: 00 Yes [id number] 800mg Take 1 tablet by mouth 3 (three) times daily with meals. [facility] ibuprofen (IBU) 800 mg tablet 2020-0 3-24 00:00: 00 Yes [id number] 800mg Take 1 tablet by mouth 3 (three) times daily with meals. [facility] ibuprofen (IBU) 800 mg tablet 2020-0 3-24 00:00: 00 Yes [id number] 800mg Take 1 tablet by mouth 3 (three) times daily with meals. [facility] ibuprofen (IBU) 800 mg tablet 2020-0 3-24 00:00: 00 Yes [id number] 800mg Take 1 tablet by mouth 3 (three) times daily with meals. [facility] 800 mg tablet 2020-0 3-24 00:00: 00 Yes [id number] 800mg Take 1 tablet by mouth 3 (three) times daily with meals. [facility]U) 800 mg tablet 2020-0 3-24 00:00: 00 Yes [id number] 800mg Take 1 tablet by mouth 3 (three) times daily with meals. [facility] (IBU) 800 mg tablet 2020-0 3-24 00:00: 00 Yes [id number] 800mg Take 1 tablet by mouth 3 (three) times daily with meals. [facility] ibuprofen (IBU) 800 mg tablet 2020-0 3-24 00:00: 00 Yes [id number] 800mg Take 1 tablet by mouth 3 (three) times daily with meals. [facility] (IBU) 800 mg tablet 2020-0 3-24 00:00: 00 Yes [id number] 800mg Take 1 tablet by mouth 3 (three) times daily with meals. [facility] ib[facility] (IBU) 800 mg tablet 2020-0 3-24 00:00: 00 Yes [id number] 800mg Take 1 tablet by mouth 3 (three) times daily with meals. [facility] (IBU) 800 mg tablet 2020-0 3-24 00:00: 00 11-11 00:00 :00 No [id number] 800mg Take 1 tablet by mouth 3 (three) times daily with meals. [facility] GABAPENTIN 300 mg capsule 2020-0 3-19 00:00: 00 Yes [id number] TAKE 1 CAPSULE BY MOUTH THREE TIMES A DAY [facility] GABAPENTIN 300 mg capsule 2020-0 3-19 00:00: 00 Yes [id number] TAKE 1 CAPSULE BY MOUTH THREE TIMES A DAY [facility] GABAPENTIN 300 mg capsule 2020-0 3-19 00:00: 00 06-21 00:00 :00 No [id number] TAKE 1 CAPSULE BY MOUTH THREE TIMES A DAY [facility] gabapentin 300 mg capsule 2020-0 2-24 00:00: 00 Yes [id number] TAKE 1 CAPSULE BY MOUTH THREE TIMES A DAY [facility] gabapentin 300 mg capsule 2020-0 2-24 00:00: 00 05-28 00:00 :00 No [id number] TAKE 1 CAPSULE BY MOUTH THREE TIMES A DAY [facility] gabapentin 300 mg capsule 2020-0 1-27 00:00: 00 Yes [id number] TAKE 1 CAPSULE BY MOUTH THREE TIMES A DAY [facility] gabapentin 300 mg capsule 2020-0 1-27 00:00: 00 05-05 00:00 :00 No [id number] TAKE 1 CAPSULE BY MOUTH THREE TIMES A DAY [facility] esomeprazol e 40 mg capsule 2020-0 1-03 00:00: 00 Yes [id number] TAKE 1 CAPSULE DAILY WITH BREAKFAST [facility] esomeprazol e 40 mg capsule 2020-0 1-03 00:00: 00 Yes [id number] TAKE 1 CAPSULE DAILY WITH BREAKFAST [facility] esomeprazol e 40 mg capsule 2020-0 1-03 00:00: 00 Yes [id number] TAKE 1 CAPSULE DAILY WITH BREAKFAST [facility] esomeprazol e 40 mg capsule 2020-0 1-03 00:00: 00 Yes [id number] TAKE 1 CAPSULE DAILY WITH BREAKFAST [facility] esomeprazol e 40 mg capsule 2020-0 1-03 00:00: 00 Yes [id number] TAKE 1 CAPSULE DAILY WITH BREAKFAST [facility] esomeprazol e 40 mg capsule 2020-0 1-03 00:00: 00 Yes [id number] TAKE 1 CAPSULE DAILY WITH BREAKFAST [facility] esomeprazol e 40 mg capsule 2020-0 1-03 00:00: 00 Yes [id number] TAKE 1 CAPSULE DAILY WITH BREAKFAST [facility] esomeprazol e 40 mg capsule 2020-0 1-03 00:00: 00 Yes [id number] TAKE 1 CAPSULE DAILY WITH BREAKFAST [facility] esomeprazol e 40 mg capsule 2020-0 1-03 00:00: 00 Yes [id number] TAKE 1 CAPSULE DAILY WITH BREAKFAST [facility] esomeprazol e 40 mg capsule 2020-0 1-03 00:00: 00 Yes [id number] TAKE 1 CAPSULE DAILY WITH BREAKFAST [facility] esomeprazol e 40 mg capsule 2020-0 1-03 00:00: 00 Yes [id number] TAKE 1 CAPSULE DAILY WITH BREAKFAST [facility] esomeprazol e 40 mg capsule 2020-0 1-03 00:00: 00 Yes [id number] TAKE 1 CAPSULE DAILY WITH BREAKFAST [facility] esomeprazol e 40 mg capsule 2020-0 1-03 00:00: 00 Yes [id number] TAKE 1 CAPSULE DAILY WITH BREAKFAST [facility] esomeprazol e 40 mg capsule 2020-0 1-03 00:00: 00 Yes [id number] TAKE 1 CAPSULE DAILY WITH BREAKFAST [facility] esomeprazol e 40 mg capsule 2020-0 1-03 00:00: 00 Yes [id number] TAKE 1 CAPSULE DAILY WITH BREAKFAST [facility] esomeprazol e 40 mg capsule 2020-0 1-03 00:00: 00 Yes [id number] TAKE 1 CAPSULE DAILY WITH BREAKFAST [facility] esomeprazol e 40 mg capsule 2020-0 1-03 00:00: 00 Yes [id number] TAKE 1 CAPSULE DAILY WITH BREAKFAST [facility] esomeprazol e 40 mg capsule 2020-0 1-03 00:00: 00 Yes [id number] TAKE 1 CAPSULE DAILY WITH BREAKFAST [facility] esomeprazol e 40 mg capsule 2020-0 1-03 00:00: 00 Yes [id number] TAKE 1 CAPSULE DAILY WITH BREAKFAST [facility] esomeprazol e 40 mg capsule 2020-0 1-03 00:00: 00 Yes [id number] TAKE 1 CAPSULE DAILY WITH BREAKFAST [facility] esomeprazol e 40 mg capsule 03-14 00:00: 00 Yes [id number] TAKE 1 CAPSULE DAILY WITH BREAKFAST [facility] esomeprazol e 40 mg capsule 03-14 00:00: 00 Yes [id number] TAKE 1 CAPSULE DAILY WITH BREAKFAST [facility] esomeprazol e 40 mg capsule 03-14 00:00: 00 Yes [id number] TAKE 1 CAPSULE DAILY WITH BREAKFAST [facility] esomeprazol e 40 mg capsule 03-14 00:00: 00 Yes [id number] TAKE 1 CAPSULE DAILY WITH BREAKFAST [facility] aug betamethaso ne dipropionat e 0.05 % ointment 03-14 00:00: 00 04-14 05:59 :00 No [id number] Apply to area(s) daily for 30 days. [facility] gabapentin 300 mg capsule 03-14 00:00: 00 04-07 00:00 :00 No [id number] TAKE 1 CAPSULE BY MOUTH THREE TIMES A DAY [facility] ibuprofen (IBU) 800 mg tablet 2018-03 15:31: 46 Yes IBU 800 mg tablet [facility] ibuprofen (IBU) 800 mg tablet 2018-03 15:31: 46 Yes IBU 800 mg tablet [facility] ibuprofen (IBU) 800 mg tablet 2018-03 15:31: 46 Yes IBU 800 mg tablet [facility] gabapentin 300 mg capsule 11-28 00:00: 00 Yes [id number] 300mg Take 1 capsule by mouth 3 (three) times daily. [facility] adalimumab (HUMIRA,CF, ) 40 mg/0.4 mL SyKt 11-05 18:17: 34 Yes inject under the skin. [facility] adalimumab (HUMIRA,CF, ) 40 mg/0.4 mL SyKt 11-05 18:17: 34 Yes inject under the skin. [facility] adalimumab (HUMIRA,CF, ) 40 mg/0.4 mL SyKt 8 18:17: 34 Yes inject under the skin. [facility] adalimumab (HUMIRA,CF, ) 40 mg/0.4 mL SyKt 11-05 18:17: 34 Yes inject under the skin. [facility] adalimumab (HUMIRA,CF, ) 40 mg/0.4 mL SyKt 0 8 18:17: 34 Yes inject under the skin. [facility] adalimumab (HUMIRA,CF, ) 40 mg/0.4 mL SyKt 0 8 18:17: 34 Yes inject under the skin. [facility] adalimumab (HUMIRA,CF, ) 40 mg/0.4 mL SyKt 11-05 18:17: 34 Yes inject under the skin. [facility] adalimumab (HUMIRA,CF, ) 40 mg/0.4 mL SyKt 11-05 18:17: 34 Yes inject under the skin. [facility] adalimumab (HUMIRA,CF, ) 40 mg/0.4 mL SyKt 0 8 18:17: 34 Yes inject under the skin. [facility] adalimumab (HUMIRA,CF, ) 40 mg/0.4 mL SyKt 11-05 18:17: 34 Yes inject under the skin. [facility] adalimumab (HUMIRA,CF, ) 40 mg/0.4 mL SyKt 11-05 18:17: 34 Yes inject under the skin. [facility] adalimumab (HUMIRA,CF, ) 40 mg/0.4 mL SyKt 0 8 18:17: 34 Yes inject under the skin. [facility] adalimumab (HUMIRA,CF, ) 40 mg/0.4 mL SyKt 0 8 18:17: 34 Yes inject under the skin. [facility] adalimumab (HUMIRA,CF, ) 40 mg/0.4 mL SyKt 0 8 18:17: 34 Yes inject under the skin. [facility] adalimumab (HUMIRA,CF, ) 40 mg/0.4 mL SyKt 11-05 18:17: 34 Yes inject under the skin. [facility] ity [facility] adalimumab (HUMIRA,CF, ) 40 [facility]0.4 mL [facility] 18:17: 34 Yes inject under the skin. [facility] ity [facility] adalimumab (HUMIRA,CF, ) 40 mg/0.4 mL [facility] 18:17: 34 Yes inject under the skin. [facility] ity [facility] adalimumab (HUMIRA,CF, ) 40 mg/0.4 mL [facility] 18:17: 34 Yes inject under the skin. [facility] ity [facility] adalimumab (HUMIRA,CF, ) 40 mg/0.4 mL [facility] 18:17: 34 Yes inject under the skin. [facility] ity [facility] adalimumab (HUMIRA,CF, ) 40 mg/0.4 mL [facility] 18:17: 34 Yes inject under the skin. [facility] ity [facility] adalimumab (HUMIRA,CF, ) 40 mg/0.4 mL [facility] 18:17: 34 [facility] adalimumab (HUMIRA,CF, ) 40 mg/0.4 mL [facility] 18:17: 34 Yes inject under the skin. [facility] ibuprofen (IBU) 800 mg tablet 11-05 18:17: 34 Yes IBU 800 mg tablet [facility] aug betamethaso ne dipropionat e 0.05 % ointment 11-05 18:17: 34 Yes Apply to area(s) daily. [facility] adalimumab (HUMIRA,CF, ) 40 mg/0.4 mL [facility] 18:17: 34 Yes inject under the skin. [facility] 800 mg tablet 11-05 18:17: 34 Yes IBU 800 mg tablet [facility] ity [facility] aug betamethaso ne dipropionat e 0.05 % ointment 11-05 18:17: 34 Yes Apply to area(s) daily. [facility] adalimumab (HUMIRA,CF, ) 40 mg/0.4 mL SyKt 11-05 18:17: 34 Yes inject under the skin. [facility] ibuprofen (IBU) 800 mg tablet 11-05 18:17: 34 Yes IBU 800 mg tablet [facility] aug betamethaso ne dipropionat e 0.05 % ointment 11-05 18:17: 34 Yes Apply to area(s) daily. [facility] adalimumab (HUMIRA,CF, ) 40 mg/0.4 mL SyKt 11-05 18:17: 34 Yes inject under the skin. [facility] ibuprofen (IBU) 800 mg tablet 11-05 18:17: 34 Yes IBU 800 mg tablet [facility] aug betamethaso ne dipropionat e 0.05 % ointment 11-05 18:17: 34 Yes Apply to area(s) daily. [facility] adalimumab (HUMIRA,CF, ) 40 mg/0.4 mL SyKt 11-05 18:17: 34 Yes inject under the skin. [facility] adalimumab (HUMIRA,CF, ) 40 mg/0.4 mL [facility] 18:17: 34 Yes inject under the skin. [facility] adalimumab (HUMIRA,CF, ) 40 mg/0.4 mL [facility] 13:17: 34 Yes inject under the skin. [facility] esomeprazol e 40 mg capsule 11-05 00:00: 00 Yes [id number] TAKE 1 CAPSULE DAILY WITH BREAKFAST [facility] esomeprazol e 40 mg capsule 11-05 00:00: 00 Yes [id number] TAKE 1 CAPSULE DAILY WITH BREAKFAST [facility] esomeprazol e 40 mg capsule 11-05 00:00: 00 Yes [id number] TAKE 1 CAPSULE DAILY WITH BREAKFAST [facility] gabapentin 300 mg capsule 11-05 00:00: 00 12-06 04:59 :00 No [id number] 300mg Take 1 capsule by mouth 3 (three) times daily for 30 days. [facility] gabapentin 300 mg capsule 11-05 00:00: 12-06 04:59 :00 No [id number] 300mg Take 1 capsule by mouth 3 (three) times daily for 30 days. [facility] gabapentin 300 mg capsule 11-05 00:00: 00 11-28 00:00 :00 No [id number] 300mg Take 1 capsule by mouth 3 (three) times daily for 30 days. [facility] adalimumab (HUMIRA,CF, ) 40 mg/0.4 mL [facility] 16:14: 42 Yes inject under the skin. [facility] adalimumab (HUMIRA,CF, ) 40 mg/0.4 mL [facility] 16:14: 42 Yes inject under the skin. [facility] aug betamethaso ne dipropionat e 0.05 % ointment 09-19 16:09: 41 Yes Apply to area(s) daily. [facility] aug betamethaso ne dipropionat e 0.05 % ointment 09-19 16:09: 41 Yes Apply to area(s) daily. [facility] ketorolac 10 mg tablet 09-19 00:00: 00 Yes [id number] 10mg Take 1 tablet by mouth every 6 (six) hours as needed for Pain (scale 4-6). [facility] ketorolac 10 mg tablet 09-19 00:00: 00 Yes [id number] 10mg Take 1 tablet by mouth every 6 (six) hours as needed for Pain (scale 4-6). [facility] ketorolac 10 mg tablet 09-19 00:00: 00 Yes [id number] 10mg Take 1 tablet by mouth every 6 (six) hours as needed for Pain (scale 4-6). [facility] ketorolac 10 mg tablet 09-19 00:00: 00 Yes [id number] 10mg Take 1 tablet by mouth every 6 (six) hours as needed for Pain (scale 4-6). [facility] 10 mg tablet 09-19 00:00: 00 Yes [id number] 10mg Take 1 tablet by mouth every 6 (six) hours as needed for Pain (scale 4-6). [facility] 10 mg tablet 09-19 00:00: 00 Yes [id number] 10mg Take 1 tablet by mouth every 6 (six) hours as needed for Pain (scale 4-6). [facility]ac 10 mg tablet 09-19 00:00: 00 Yes [id number] 10mg Take 1 tablet by mouth every 6 (six) hours as needed for Pain (scale 4-6). [facility] ket[facility]ac 10 mg tablet 09-19 00:00: 00 Yes [id number] 10mg Take 1 tablet by mouth every 6 (six) hours as needed for Pain (scale 4-6). [facility]ac 10 mg tablet 09-19 00:00: 00 Yes [id number] 10mg Take 1 tablet by mouth every 6 (six) hours as needed for Pain (scale 4-6). [facility] ketorolac 10 mg tablet 09-19 00:00: 00 Yes [id number] 10mg Take 1 tablet by mouth every 6 (six) hours as needed for Pain (scale 4-6). [facility] ketorolac 10 mg tablet 09-19 00:00: 00 Yes [id number] 10mg Take 1 tablet by mouth every 6 (six) hours as needed for Pain (scale 4-6). [facility] ketorolac 10 mg tablet 09-19 00:00: 00 Yes [id number] 10mg Take 1 tablet by mouth every 6 (six) hours as needed for Pain (scale 4-6). [facility] ketorolac 10 mg tablet 09-19 00:00: 00 Yes [id number] 10mg Take 1 tablet by mouth every 6 (six) hours as needed for Pain (scale 4-6). [facility] ketorolac 10 mg tablet 09-19 00:00: 00 Yes [id number] 10mg Take 1 tablet by mouth every 6 (six) hours as needed for Pain (scale 4-6). [facility] mg tablet 09-19 00:00: 00 Yes [id number] 10mg Take 1 tablet by mouth every 6 (six) hours as needed for Pain (scale 4-6). [facility] 10 mg tablet 09-19 00:00: 00 Yes [id number] 10mg Take 1 tablet by mouth every 6 (six) hours as needed for Pain (scale 4-6). [facility] 10 mg tablet 09-19 00:00: 00 Yes [id number] 10mg Take 1 tablet by mouth every 6 (six) hours as needed for Pain (scale 4-6). [facility] ketorolac 10 mg tablet 09-19 00:00: 00 Yes [id number] 10mg Take 1 tablet by mouth every 6 (six) hours as needed for Pain (scale 4-6). [facility] ketorolac 10 mg tablet 09-19 00:00: 00 Yes [id number] 10mg Take 1 tablet by mouth every 6 (six) hours as needed for Pain (scale 4-6). [facility] ketorolac 10 mg tablet 09-19 00:00: 00 Yes [id number] 10mg Take 1 tablet by mouth every 6 (six) hours as needed for Pain (scale 4-6). [facility] ketorolac 10 mg tablet 09-19 00:00: 00 Yes [id number] 10mg Take 1 tablet by mouth every 6 (six) hours as needed for Pain (scale 4-6). [facility] ketorolac 10 mg tablet 09-19 00:00: 00 Yes [id number] 10mg Take 1 tablet by mouth every 6 (six) hours as needed for Pain (scale 4-6). [facility] ketorolac 10 mg tablet 09-19 00:00: 00 Yes [id number] 10mg Take 1 tablet by mouth every 6 (six) hours as needed for Pain (scale 4-6). [facility] ketorolac 10 mg tablet 09-19 00:00: 00 Yes [id number] 10mg Take 1 tablet by mouth every 6 (six) hours as needed for Pain (scale 4-6). [facility] ketorolac 10 mg tablet 09-19 00:00: 00 Yes [id number] 10mg Take 1 tablet by mouth every 6 (six) hours as needed for Pain (scale 4-6). [facility] ketorolac 10 mg tablet 09-19 00:00: 00 Yes [id number] 10mg Take 1 tablet by mouth every 6 (six) hours as needed for Pain (scale 4-6). [facility] ketorolac 10 mg tablet 09-19 00:00: 00 Yes [id number] 10mg Take 1 tablet by mouth every 6 (six) hours as needed for Pain (scale 4-6). [facility] ketorolac 10 mg tablet 09-19 00:00: 00 Yes [id number] 10mg Take 1 tablet by mouth every 6 (six) hours as needed for Pain (scale 4-6). [facility] ketorolac 10 mg tablet 09-19 00:00: 00 Yes [id number] 10mg Take 1 tablet by mouth every 6 (six) hours as needed for Pain (scale 4-6). [facility] ketorolac 10 mg tablet 09-19 00:00: 00 Yes [id number] 10mg Take 1 tablet by mouth every 6 (six) hours as needed for Pain (scale 4-6). [facility] ibuprofen (IBU) 800 mg tablet 07-28 15:22: 33 Yes IBU 800 mg tablet [facility] ibuprofen (IBU) 800 mg tablet 07-28 15:22: 33 Yes IBU 800 mg tablet [facility] ESOMEPRAZOL E 40 mg capsule 05-27 00:00: 00 Yes [id number] TAKE 1 CAPSULE DAILY WITH BREAKFAST [facility] ESOMEPRAZOL E 40 mg capsule 05-27 00:00: 00 Yes [id number] TAKE 1 CAPSULE DAILY WITH BREAKFAST [facility] ESOMEPRAZOL E 40 mg capsule 05-27 00:00: 00 11-05 00:00 :00 No [id number] TAKE 1 CAPSULE DAILY WITH BREAKFAST [facility] ESOMEPRAZOL E 40 mg capsule 05-27 00:00: 00 11-05 00:00 :00 No [id number] TAKE 1 CAPSULE DAILY WITH BREAKFAST [facility] acetaminoph en-codeine 300-30 mg tablet 06-11 00:00: 00 Yes TAKE 1 TABLET BY MOUTH TWICE A DAY [facility] acetaminoph en-codeine 300-30 mg tablet 06-11 00:00: 00 Yes TAKE 1 TABLET BY MOUTH TWICE A DAY [facility] acetaminoph en-codeine 300-30 mg tablet 06-11 00:00: 00 Yes TAKE 1 TABLET BY MOUTH TWICE A DAY [facility] acetaminoph en-codeine 300-30 mg tablet 06-11 00:00: 00 Yes TAKE 1 TABLET BY MOUTH TWICE A DAY [facility] acetaminoph en-codeine 300-30 mg tablet 06-11 00:00: 00 Yes TAKE 1 TABLET BY MOUTH TWICE A DAY [facility] acetaminoph en-codeine 300-30 mg tablet 06-11 00:00: 00 Yes TAKE 1 TABLET BY MOUTH TWICE A DAY [facility] acetaminoph en-codeine 300-30 mg tablet 06-11 00:00: 00 Yes TAKE 1 TABLET BY MOUTH TWICE A DAY [facility] acetaminoph en-codeine 300-30 mg tablet 06-11 00:00: 00 Yes TAKE 1 TABLET BY MOUTH TWICE A DAY [facility] acetaminoph en-codeine 300-30 mg tablet 06-11 00:00: 00 Yes TAKE 1 TABLET BY MOUTH TWICE A DAY [facility] acetaminoph en-codeine 300-30 mg tablet 06-11 00:00: 00 Yes TAKE 1 TABLET BY MOUTH TWICE A DAY [facility] acetaminoph en-codeine 300-30 mg tablet 06-11 00:00: 00 Yes TAKE 1 TABLET BY MOUTH TWICE A DAY [facility] acetaminoph en-codeine 300-30 mg tablet 06-11 00:00: 00 Yes TAKE 1 TABLET BY MOUTH TWICE A DAY [facility] ity [facility] acetaminoph en-codeine 300-30 mg tablet 06-11 00:00: 00 Yes TAKE 1 TABLET BY MOUTH TWICE A DAY [facility] acetaminoph en-codeine 300-30 mg tablet 06-11 00:00: 00 Yes TAKE 1 TABLET BY MOUTH TWICE A DAY [facility] acetaminoph en-codeine 300-30 mg tablet 06-11 00:00: 00 Yes TAKE 1 TABLET BY MOUTH TWICE A DAY [facility] acetaminoph en-codeine 300-30 mg tablet 06-11 00:00: 00 Yes TAKE 1 TABLET BY MOUTH TWICE A DAY [facility] acetaminoph en-codeine 300-30 mg tablet 06-11 00:00: 00 Yes TAKE 1 TABLET BY MOUTH TWICE A DAY [facility] acetaminoph en-codeine 300-30 mg tablet 06-11 00:00: 00 Yes TAKE 1 TABLET BY MOUTH TWICE A DAY [facility] acetaminoph en-codeine 300-30 mg tablet 06-11 00:00: 00 Yes TAKE 1 TABLET BY MOUTH TWICE A DAY [facility] acetaminoph en-codeine 300-30 mg tablet 06-11 00:00: 00 Yes TAKE 1 TABLET BY MOUTH TWICE A DAY [facility] acetaminoph en-codeine 300-30 mg tablet 06-11 00:00: 00 Yes TAKE 1 TABLET BY MOUTH TWICE A DAY [facility] acetaminoph en-codeine 300-30 mg tablet 06-11 00:00: 00 Yes TAKE 1 TABLET BY MOUTH TWICE A DAY [facility] acetaminoph en-codeine 300-30 mg tablet 06-11 00:00: 00 Yes TAKE 1 TABLET BY MOUTH TWICE A DAY [facility] acetaminoph en-codeine 300-30 mg tablet 06-11 00:00: 00 Yes TAKE 1 TABLET BY MOUTH TWICE A DAY [facility] acetaminoph en-codeine 300-30 mg tablet 06-11 00:00: 00 Yes TAKE 1 TABLET BY MOUTH TWICE A DAY [facility] acetaminoph en-codeine 300-30 mg tablet 06-11 00:00: 00 Yes TAKE 1 TABLET BY MOUTH TWICE A DAY [facility] acetaminoph en-codeine 300-30 mg tablet 06-11 00:00: 00 Yes TAKE 1 TABLET BY MOUTH TWICE A DAY [facility] acetaminoph en-codeine 300-30 mg tablet 06-11 00:00: 00 Yes TAKE 1 TABLET BY MOUTH TWICE A DAY [facility] acetaminoph en-codeine 300-30 mg tablet 06-11 00:00: 00 Yes TAKE 1 TABLET BY MOUTH TWICE A DAY [facility] acetaminoph en-codeine 300-30 mg tablet 06-11 00:00: 00 Yes TAKE 1 TABLET BY MOUTH TWICE A DAY [facility] acetaminoph en-codeine 300-30 mg tablet 06-11 00:00: 00 Yes TAKE 1 TABLET BY MOUTH TWICE A DAY [facility] Vital Signs Vital Name Observation Time Observation Value Comments S ource Systolic blood pressure 2019-09-03 16:10:00 113 mm[Hg] [facility] Diastolic blood pressure 2019-09-03 16:10:00 85 mm[Hg] [facility] Heart rate 2019-09-03 16:10:00 84 /min [facility] Body temperature 2019-09-03 16:10:00 36.83 [place] [facility] Respiratory rate 2019-09-03 16:10:00 18 /min [facility] Body height 2019-09-03 16:10:00 188 cm [facility] Body weight 2019-09-03 16:10:00 111.131 kg [facility] BMI 2019-09-03 16:10:00 31.46 kg/m2 [facility] Oxygen saturation in Arterial blood by Pulse oximetry 2019-09-03 16:10:00 100 /min [facility] Systolic blood pressure 2019-09-03 16:10:00 113 mm[Hg] [facility] Diastolic blood pressure 2019-09-03 16:10:00 85 mm[Hg] [facility] Heart rate 2019-09-03 16:10:00 84 /min [facility] Body temperature 2019-09-03 16:10:00 36.83 [place] [facility] Respiratory rate 2019-09-03 16:10:00 18 /min [facility] Body height 2019-09-03 16:10:00 188 cm [facility] Body weight 2019-09-03 16:10:00 111.131 kg [facility] BMI 2019-09-03 16:10:00 31.46 kg/m2 [facility] Oxygen saturation in Arterial blood by Pulse oximetry 2019-09-03 16:10:00 100 /min [facility] Systolic blood pressure 2018-11-05 18:15:00 132 mm[Hg] [facility] Diastolic blood pressure 2018-11-05 18:15:00 80 mm[Hg] [facility] Body weight 2018-11-05 18:15:00 103.874 kg [facility] BMI 2018-11-05 18:15:00 29.40 kg/m2 [facility] Procedures Procedure Date / Time Performed Performing Clinician Source MEDICATION CORRESPONDENCE 2018-10-23 05:01:00 Do ctor Unassigned, [place] [facility] [id number] CONSENT 2018-03-14 06:01:00 Doctor Unas signed, [place] [facility] Encounters Start Date/Time End Date/Time Encounter Type Admission Type Attending Clinicians Care Facility Care Department Encounter ID Source 2020-08-22 00:00:00 2020-08-22 00:00:00 Deny Angel [facility] One [id number] 350.1.13.10 4.2.7.2.686 [id number] [facility] 2020-08-22 00:00:00 2020-08-22 [facility]00[facility] [id number] 350.1.13.10 4.2.7.2.686 [id number] 2020-05-27 00:00:00 2020-05-27 00:00:00 Patient Outreach Konstantin Buck [facility] [id number] 350.1.13.10 4.2.7.2.686 [id number] [facility] 2020-05-27 00:00:00 2020-05-27 00:00:00 Patient Outreach [facility]ber [facility] [id number] 350.1.13.10 4.2.7.2.686 [id number] 2020-03-26 00:00:00 2020-03-26 00:00:00 Saige Rhodes [facility] One [id number] 350.1.13.10 4.2.7.2.686 [id number] [facility] 2020-03-26 00:00:00 2020-03-26 00:00:00 Saige Rhodes [facility] [id number] 350.1.13.10 4.2.7.2.686 [id number] 2020-03-02 00:00:00 2020-03-02 00:00:00 Saige Rhodes [facility] [id number] 350.1.13.10 4.2.7.2.686 [id number] [facility] 2020-03-02 00:00:00 2020-03-02 00:00:00 Refill Deny Rhodes [facility] One [id number] 350.1.13.10 4.2.7.2.686 [id number] 2019-12-29 00:00:00 2019-12-29 00:00:00 Refill Deny Rhodes [facility] One [id number] 350.1.13.10 4.2.7.2.686 [id number] [facility] 2019-12-29 00:00:00 2019-12-29 00:00:00 Refill Carmelo [facility] 1.0.114 350.1.13.10 4.2.7.2.686 [id number] 2019-12-05 00:00:00 2019-12-05 00:00:00 Refill Carmelo Deny [facility] One [id number] 350.1.13.10 4.2.7.2.686 [id number] [facility] 2019-12-05 00:00:00 2019-12-05 00:00:00 Refill Carmelo [facility] [id number] 350.1.13.10 4.2.7.2.686 [id number] 2019-11-12 00:00:00 2019-11-12 00:00:00 Refill Doctor Unassigned, [place] [facility] One [id number] 350.1.13.10 4.2.7.2.686 [id number] [facility] 2019-11-12 00:00:00 2019-11-12 00:00:00 Refill Doctor Unassigned, [place] [facility] [id number] 350.1.13.10 4.2.7.2.686 [id number] 2019-09-11 00:00:00 2019-09-11 00:00:00 Patient Secure Deny Aburto [facility] [id number] 350.1.13.10 4.2.7.2.686 [id number] [facility] 2019-09-11 00:00:00 2019-09-11 00:00:00 Patient Secure Deny Aburto [facility] [id number] 350.1.13.10 4.2.7.2.686 [id number] 2019-09-05 00:00:00 2019-09-05 00:00:00 Patient Secure Deny Aburto [facility] [id number] 350.1.13.10 4.2.7.2.686 [id number] 2019-09-05 00:00:00 2019-09-05 00:00:00 Patient Secure Deny Aburto [facility] [id number] 350.1.13.10 4.2.7.2.686 [id number] [facility] 2019-09-04 00:00:00 2019-09-04 00:00:00 Telephone Pretty [place] [facility] [id number] 350.1.13.10 4.2.7.2.686 [id number] 2019-09-04 00:00:00 2019-09-04 00:00:00 Telephone Pretty [place]pe [facility] [id number] 350.1.13.10 4.2.7.2.686 [id number] [facility] 2019-09-04 00:00:00 2019-09-04 00:00:00 Patient Secure Msg Doctor Unassigned, [place] [facility] 1..114 350.1.13.10 4.2.7.2.686 [id number] [facility] 2019-09-03 10:25:23 2019-09-03 10:45:23 [facility] 1..114 350.1.13.10 4.2.7.2.686 [id number] 2019-09-03 10:25:23 2019-09-03 10:45:23 Urgent Care Po, Acute Care [facility] 1.114 350.1.13.10 4.2.7.2.686 [id number] [facility] 2019-09-03 10:40:00 2019-09-03 10:40:00 Outpatient R [facility] [id number] [facility] 2019-08-24 00:00:00 2019-08-24 [facility]:00[facility] 1.114 350.1.13.10 4.2.7.2.686 [id number] 2019-08-24 00:00:00 2019-08-24 00:00:00 Saige Rhodes [facility] One ..114 350.1.13.10 4.2.7.2.686 [id number] [facility] 2019-08-01 00:00:00 2019-08-01 00:00:00 [facility] 1..114 350.1.13.10 4.2.7.2.686 [id number] [facility] 2019-08-01 00:00:00 2019-08-01 00:00:00 Refill Deny Rhodes [facility] Office [facility] 1.2.840.114 350.1.13.10 4.2.7.2.686 [id number] 2019-08-01 00:00:00 2019-08-01 00:00:00 Telephone Deny Rhodes [facility] 1.2.840.114 350.1.13.10 4.2.7.2.686 [id number] [id number] [facility] 2019-08-01 00:00:00 2019-08-01 00:00:00 Telephone Deny Rhodes [facility] [id number] 350.1.13.10 4.2.7.2.686 [id number] 2019-07-29 00:00:00 2019-07-29 00:00:00 Refill Doctor Unassigned, [place] [facility] One 1.2.840.114 350.1.13.10 4.2.7.2.686 [id number] [facility] 2019-07-29 00:00:00 2019-07-29 00:00:00 Refill Doctor Unassigned, [place] [facility] 1.2.840.114 350.1.13.10 4.2.7.2.686 [id number] [id number] 2019-07-09 00:00:00 2019-07-09 00:00:00 Telephone Deny Rhodes [facility] Building [id number] 350.1.13.10 4.2.7.2.686 [id number] [facility] 2019-07-09 00:00:00 2019-07-09 00:00:00 Telephone Rhodes, [facility] nal Building 1.2.840.114 350.1.13.10 4.2.7.2.686 [id number] 2019-06-30 00:00:00 2019-06-30 00:00:00 Patient Secure Msg Rhodes [facility] Office [facility] One 1.2.840.114 350.1.13.10 4.2.7.2.686 [id number] [facility] 2019-06-30 00:00:00 2019-06-30 00:00:00 Patient Secure Msg Rhodes [facility] 1.2.840.114 350.1.13.10 4.2.7.2.686 [id number] 044 [id number] 2019-06-22 00:00:00 2019-06-22 00:00:00 Refill Carmelo [facility] 1.2840.114 350.1.13.10 4.2.7.2.686 [id number] 044 [id number] [facility] 2019-06-03 00:00:00 2019-06-03 00:00:00 Patient Secure Msg Rhodes [facility] 1.2840.114 350.1.13.10 4.2.7.2.686 [id number] [facility] 2019-05-29 00:00:00 2019-05-29 00:00:00 Refill Carmelo [facility] 1.2840.114 350.1.13.10 4.2.7.2.686 [id number] 044 [id number] [facility] 2019-05-05 00:00:00 2019-05-05 00:00:00 Refill Carmelo [facility] 1.2840.114 350.1.13.10 4.2.7.2.686 [id number] 044 [id number] [facility] 2019-04-07 00:00:00 2019-04-07 00:00:00 Refill Deny Rhodes [facility] 1..840.114 350.1.13.10 4.2.7.2.686 [id number] [facility] 2019-01-05 10:30:00 2019-01-05 11:53:02 Outpatient GIN JONES [facility] [id number] [facility] 2018-11-27 00:00:00 2018-11-27 00:00:00 Refill Carmelo [facility] 1.840.114 350.1.13.10 4.2.7.2.686 [id number] 044 [id number] [facility] 2018-11-05 12:58:34 2018-11-05 13:31:40 Office Visit Grace Nanci [facility] One 1.840.114 350.1.13.10 4.2.7.2.686 [id number] [facility] 2018-11-04 00:00:00 2018-11-04 00:00:00 Telephone Carmelo Deny [facility] 1.84.114 350.1.13.10 4.2.7.2.686 [id number] 044 [id number] [facility] 2018-10-29 00:00:00 2018-10-29 00:00:00 Refill Carmelo Deny [facility] 1.84.114 350.1.13.10 4.2.7.2.686 [id number] [facility] 2018-10-23 00:00:00 2018-10-23 00:00:00 Orders Only Doctor Unassigned, [place] [facility] 1.2.840.114 350.1.13.10 4.2.7.2.686 [id number] [facility] 2018-09-19 10:28:05 2018-09-19 11:25:00 Emergency X SANDRAFELICIA VASQUEZ [facility] [id number] [facility] 2018-03-14 00:00:00 2018-03-14 00:00:00 Orders Only Doctor Unassigned, [place] [facility] 1.2.840.114 350.1.13.10 4.2.7.2.686 [id number] [facility]
[2023-03-17 06:02] LABS: Absolute Lymphocytes (CBC) 2.2 K/uL (0.7-4.9); Hematocrit 42.1 % (39.6-49.0); MPV 7.5 fL (7.6-11.3); Platelets 454 thou/uL (152-406); RBC Red Blood Cell Count 4.83 M/uL (4.33-5.43)
[2023-03-17 06:22] LABS: Albumin 3.3 g/dL (3.4-5.0); Bilirubin Direct 0.2 mg/dL (0-0.2); Bilirubin Indirect, Calculated 0.3 mg/dL (0.2-0.8); Bilirubin Total 0.5 mg/dL (0.2-1.0); Magnesium 2.2 mg/dL (1.6-2.4); Potassium 3.2 mEq/L (3.5-5.1); Protein, Total 8.1 g/dL (6.4-8.2); Troponin High Sensitivity 6.3 pg/mL (<58.9)
--- NOTE | 2023-03-17 07:39 | EDPHYS ---
Physician Documentation [facility] Name: Delmer Doan Age: 52 yrs Sex: Male : 1970 Arrival Date: 03/17/2023 Time: 05:03 Bed 13 Private MD: ED Physician Senthil Trinidad HPI: 03/17 05:30 This 52 yrs old Male presents to ER via Ambulatory with complaints of Cough, Vomiting, rt pt states he can not taste anything, Flank Pain. 05:30 Patient presents to the ED with cough, stating that food does not have a flavor to it. rt This started about 3 days ago, has had progressively worsening cough. He does have episodes of vomiting only with coughing. Denies any nausea currently. He reports the pain to the left lower rib margin only when he coughs. He denies other acute complaints at this time, symptoms are moderate in severity, no other aggravating elevating factors.. Historical: - Allergies: 05:26 No Known Allergies; pf1 - PMHx: 05:26 Arthritis; Hyperlipidemia; pf1 - PSHx: 05:26 hiatal hernia; Vasectomy; pf1 - Immunization history:: Adult Immunizations up to date, Client reports receiving the Steven \T\ Steven single-dose vaccine. Last tetanus immunization: > 10 years ago Flu vaccine is not up to date. - Social history:: Smoking status: Patient reports the use of cigarette tobacco products, smokes one pack cigarettes per day. Patient/guardian denies using alcohol, street drugs. - Family history:: not pertinent. ROS: 05:30 Constitutional: Negative for fever, chills, and weight loss, MS/Extremity: Negative for rt injury and deformity, Skin: Negative for injury, rash, and discoloration, Neuro: Negative for headache, weakness, numbness, tingling, and seizure, 05:30 Respiratory: Positive for cough, Negative for shortness of breath, 05:30 Abdomen/GI: Positive for vomiting, Negative for abdominal pain, nausea, Exam: 05:30 Constitutional: This is a well developed, well nourished patient who is awake, alert, rt and in no acute distress. Head/Face: Normocephalic, atraumatic. Chest/axilla: Normal chest wall appearance and motion. Nontender with no deformity. No lesions are appreciated. Cardiovascular: Regular rate and rhythm with a normal S1 and S2. No gallops, murmurs, or rubs. Normal PMI, no JVD. No pulse deficits. Respiratory: Lungs have equal breath sounds bilaterally, clear to auscultation and percussion. No rales, rhonchi or wheezes noted. No increased work of breathing, no retractions or nasal flaring. Abdomen/GI: Soft, non-tender, with normal bowel sounds. No distension or tympany. No guarding or rebound. No evidence of tenderness throughout. Skin: Warm, dry with normal turgor. Normal color with no rashes, no lesions, and no evidence of cellulitis. MS/ Extremity: Pulses equal, no cyanosis. Neurovascular intact. Full, normal range of motion. Neuro: Awake and alert, GCS 15, oriented to person, place, time, and situation. Cranial nerves II-XII grossly intact. Motor strength 5/5 in all extremities. Sensory grossly intact. Cerebellar exam normal. Normal gait. Psych: Awake, alert, with orientation to person, place and time. Behavior, mood, and affect are within normal limits. 06:12 ECG was reviewed by the Attending Physician. rt Vital Signs: 05:21 BP 135 / 91; Pulse 64; Resp 16; Temp 97.5; Pulse Ox 98% on R/A; Weight 102.06 kg; pf1 Height 6 ft. 2 in. ; Pain 2/10; 05:56 BP 132 / 85; Pulse 57; Resp 16; Pulse Ox 96% on R/A; nw1 06:36 BP 103 / 77; Pulse 68; Resp 16; Pulse Ox 97% on R/A; nw1 07:05 BP 119 / 89; Pulse 60; Pulse Ox 97% on R/A; nw1 07:30 BP 129 / 89; Pulse 54; Resp 16; Pulse Ox 99% on R/A; db 05:21 Body Mass Index 28.89 (102.06 kg, 187.96 cm) pf1 05:21 Pain Scale: Adult pf1 [place] Coma Score: 05:56 Eye Response: spontaneous(4). Motor Response: obeys commands(6). Verbal Response: nw1 oriented(5). Total: 15. MDM: 05:20 Patient medically screened. rt 07:40 Differential Diagnosis: Other Pneumonia, URI, viral syndrome. Data reviewed: vital rt signs, nurses notes, lab test result(s), EKG, radiologic studies. Consideration of Admission/Observation Escalation of care including admission/observation considered. Offered patient admission for failed outpatient therapy, states that he strongly wishes to go home. Will give patient continue trial of outpatient management, patient instructed to return for IV antibiotics should his symptoms worsen or he develop new concerning symptoms.. Independent interpretation of the following test(s) in the Emergency Department X-Ray: My interpretation is Left-sided pleural effusions, interpretation of x-ray images. Counseling: I had a detailed discussion with the patient and/or guardian regarding the historical points, exam findings, and any diagnostic results supporting the discharge/admit diagnosis, lab results, radiology results, the need for outpatient follow up, to return to the emergency department if symptoms worsen or persist or if there are any questions or concerns that arise at home. 03/17 05:27 Order name: Basic Metabolic Panel; Complete Time: 06:35 rt 03/17 05:27 Order name: CBC with Diff; Complete Time: 06:35 rt 03/17 05:27 Order name: LFT's; Complete Time: 06:35 rt 03/17 05:27 Order name: Magnesium; Complete Time: 06:35 rt 03/17 05:27 Order name: Troponin HS; Complete Time: 06:35 rt 03/17 05:27 Order name: Influenza Screen (a \T\ B); Complete Time: 06:35 rt 03/17 06:00 Order name: SARS-COV-2 RT PCR; Complete Time: 06:35 EDMS 03/17 05:27 Order name: XRAY Chest (1 view) rt 03/17 05:27 Order name: EKG; Complete Time: 05:27 rt 03/17 05:27 Order name: Cardiac monitoring; Complete Time: 05:52 rt 03/17 05:27 Order name: EKG - Nurse/Tech; Complete Time: 05:52 rt 03/17 05:27 Order name: IV Saline Lock; Complete Time: 05:52 rt 03/17 05:27 Order name: Labs collected and sent; Complete Time: 05:52 rt 03/17 05:27 Order name: O2 Per Protocol; Complete Time: 05:52 rt 03/17 05:27 Order name: O2 Sat Monitoring; Complete Time: 05:52 rt EC:12 Rate is 53 beats/min. Rhythm is regular, Sinus bradycardia. QRS [place] is Normal. [place] rt interval is normal. QRS interval is normal. QT interval is normal. No Q waves. Administered Medications: No medications were administered Disposition Summary: 03/17/23 07:39 Discharge Ordered Notes: Location: Home rt Problem: new rt Symptoms: have improved rt Condition: Stable rt Diagnosis - Other pneumonia, unspecified organism rt Followup: rt - With: Private Physician - When: 2 - 3 days - Reason: Discharge Instructions: - Discharge Summary Sheet rt - Community-Acquired Pneumonia, Adult rt Forms: - Medication Reconciliation Form rt - Thank You Letter rt - Antibiotic Education rt - Prescription Opioid Use rt - Patient Portal Instructions rt - Leadership Thank You Letter rt Prescriptions: - azithromycin 250 mg Oral tablet - take 1 dose pack ORAL route as directed on dose pack For 250 mg dose pack: take rt 500 mg today (day 1), then 250 mg for 4 days (days 2-5); 6 tablet; Refills: 0, Product Selection Permitted Signatures: Dispatcher [employer] EDSenthil Reyes MD MD rt Erin Fields RN RN pf1 Corrections: (The following items were deleted from the chart) 06:00 05:27 SARS-COV-2 Antigen Rapid+I.LAB.BRZ ordered. [facility] EDLA
--- NOTE | 2023-03-17 07:39 | ER ---
Nurse's Notes [facility] Name: Delmer Doan Age: 52 yrs Sex: Male : 1970 Arrival Date: 03/17/2023 Time: 05:03 Bed 13 Private MD: Diagnosis: Other pneumonia, unspecified organism Presentation: 03/17 05:21 Chief complaint: Patient states: cough, vomiting and has no taste,onset 4 days. Patient pf1 C/O left lower ribcage pain of 2 after coughing a lot at 4 hours ago. Coronavirus screen: Vaccine status: Patient reports receiving the 1st dose of the Covid vaccine. Client denies travel out of the [place] in the last 14 days. Client presents with at least one sign or symptom that may indicate coronavirus-19. Ebola Screen: Patient negative for fever greater than or equal to 101.5 degrees Fahrenheit, and additional compatible Ebola Virus Disease symptoms. Initial Sepsis Screen: Does the patient meet any 2 criteria? No. Patient's initial sepsis screen is negative. Does the patient have a suspected source of infection? No. Patient's initial sepsis screen is negative. Risk Assessment: Do you want to hurt yourself or someone else? Patient reports no desire to harm self or others. 05:21 Method Of Arrival: Ambulatory pf1 05:21 Acuity: ANITHA 3 pf1 Historical: - Allergies: 05:26 No Known Allergies; pf1 - PMHx: 05:26 Arthritis; Hyperlipidemia; pf1 - PSHx: 05:26 hiatal hernia; Vasectomy; pf1 - Immunization history:: Adult Immunizations up to date, Client reports receiving the Steven \T\ Steven single-dose vaccine. Last tetanus immunization: > 10 years ago Flu vaccine is not up to date. - Social history:: Smoking status: Patient reports the use of cigarette tobacco products, smokes one pack cigarettes per day. Patient/guardian denies using alcohol, street drugs. - Family history:: not pertinent. Screenin:[address] [facility] ED Fall Risk Assessment (Adult) History of falling in the last 3 months, nw1 including since admission No falls in past 3 months (0 pts) Confusion or Disorientation No (0 pts) Intoxicated or Sedated No (0 pts) Impaired Gait No (0 pts) Mobility Assist Device Used No (0 pt) Altered Elimination No (0 pt) Score/Fall Risk Level 0 - 2 = Low Risk Oriented to surroundings, Maintained a safe environment, Educated pt \T\ family on fall prevention, incl call for assistance when getting out of bed, Assessed \T\ reinforced patient's understanding of fall precautions, Provided non-skid footwear, Hourly rounding (assess needs \T\ fall precautionary measures) done. Abuse screen: Denies threats or abuse. Denies injuries from another. Nutritional screening: No deficits noted. Tuberculosis screening: No symptoms or risk factors identified. Assessment: 05:39 Reassessment: Report received from JAY JAY Granda. nw1 05:56 General: Appears in no apparent distress. Behavior is calm, cooperative, appropriate nw1 for age. Pain: Denies pain. Neuro: No deficits noted. Level of Consciousness is awake, alert, obeys commands, Oriented to person, place, time, situation, Appropriate for age Facial symmetry appears normal. Cardiovascular: Denies chest pain, diaphoresis, palpitations. Respiratory: Reports pain with cough. GI: Abdomen is non-distended, Bowel sounds present X 4 quads. Abd is soft and non tender Reports lack of taste with foods. Derm: No deficits noted. No signs and/or symptoms reported regarding the dermatologic system. Musculoskeletal: No deficits noted. No signs and/or symptoms reported regarding the musculoskeletal system. 07:50 Reassessment: Patient appears in no apparent distress at this time. Patient and/or db family updated on plan of care and expected duration. Pain level reassessed. Patient is alert, oriented x 3, equal unlabored respirations, skin warm/dry/pink. 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 Vital Signs: 05:21 BP 135 / 91; Pulse 64; Resp 16; Temp 97.5; Pulse Ox 98% on R/A; Weight 102.06 kg; pf1 Height 6 ft. 2 in. ; Pain 2/10; 05:56 BP 132 / 85; Pulse 57; Resp 16; Pulse Ox 96% on R/A; nw1 06:36 BP 103 / 77; Pulse 68; Resp 16; Pulse Ox 97% on R/A; nw1 07:05 BP 119 / 89; Pulse 60; Pulse Ox 97% on R/A; nw1 07:30 BP 129 / 89; Pulse 54; Resp 16; Pulse Ox 99% on R/A; db 05:21 Body Mass Index 28.89 (102.06 kg, 187.96 cm) pf1 05:21 Pain Scale: Adult pf1 [place] Coma Score: 05:56 Eye Response: spontaneous(4). Motor Response: obeys commands(6). Verbal Response: nw1 oriented(5). Total: 15. ED Course: 05:08 Patient arrived in ED. gm2 05:08 Senthil Trinidad MD is Attending Physician. rt 05:25 Triage completed. pf1 05:49 No provider procedures requiring assistance completed. Inserted saline lock: 18 gauge nw1 in right forearm, using aseptic technique. Blood collected. 05:52 Basic Metabolic Panel Sent. nw1 05:52 CBC with Diff Sent. nw1 05:52 LFT's Sent. nw1 05:52 Magnesium Sent. nw1 05:52 Troponin HS Sent. nw1 05:52 Influenza Screen (a \T\ B) Sent. nw1 05:56 Patient has correct armband on for positive identification. Placed in gown. Bed in low nw1 position. Call light in reach. Side rails up X 1. Provided Education on: POC. Door closed. 06:02 SARS-COV-2 RT PCR Sent. nw1 06:02 Influenza Screen (a \T\ B) Sent. nw1 06:02 Basic Metabolic Panel Sent. nw1 06:02 LFT's Sent. nw1 06:02 CBC with Diff Sent. nw1 06:02 Magnesium Sent. nw1 06:02 Troponin HS Sent. nw1 06:34 XRAY Chest (1 view) In Process Unspecified. EDMS 06:35 Yee Hahn, JAY JAY is Primary Nurse. nw1 07:17 Attending Physician role handed off by Senthil Trinidad MD ec2 07:17 Roosevelt Ramirez MD is Attending Physician. ec2 07:19 Attending Physician role handed off by Roosevelt Ramirez MD ec2 07:19 Senthil Trinidad MD is Attending Physician. ec2 07:57 IV discontinued, intact, bleeding controlled, No redness/swelling at site. db Administered Medications: No medications were administered Medication: 05:56 VIS not applicable for this client. nw1 Outcome: 07:39 Discharge ordered by MD. rt 07:57 Discharged to home ambulatory, db 07:57 Condition: stable 07:57 Discharge instructions given to patient, Instructed on discharge instructions, follow up and referral plans. Prescriptions given X 1, 08:08 Patient left the ED. db Signatures: Dispatcher [employer] Viktoria Jack RN RN db Senthil Trinidad MD MD rt Erin Fields RN RN pf1 Roosevelt Ramirez MD MD 2 Rox Henderson 2 Yee Hahn RN RN nw1 Corrections: (The following items were deleted from the chart) 06:00 05:52 SARS-COV-2 Antigen Rapid+I.LAB.BRZ drawn and sent. nw1 MELVIN
--- NOTE | 2023-03-17 08:28 | RAD REPORT ---
EXAM DESCRIPTION: RAD - Chest Single View - 03/17/2023 6:32 am CLINICAL HISTORY: COUGH Chest pain. COMPARISON: Chest Pa And Lat (2 Views) dated 03/05/2023; Chest Pa And Lat (2 Views) dated 05/23/2021; Chest Single View dated 03/07/2021; Chest Pa And Lat (2 Views) dated 10/28/2020 FINDINGS: Portable technique limits examination quality. Left pleural and parenchymal opacification inferiorly are again noted, similar to 03/05/[address] [facility]. Bilateral mild interstitial opacities may represent pulmonary edema or viral infection. The hear t is mildly enlarged in size. No displaced fractures.
[2023-03-17 10:13] VITALS: TEMP 97.1
[2023-03-17 10:27] VITALS: BP 149/73; O2SAT 98
--- NOTE | 2023-03-19 12:27 | EKG ---
Test Date: 2023-03-17 Test Time: 05:41:09 [employer] Middleware Architect: TALISHA MEASUREMENT RESULTS: Intervals: Rate: 53 ND: 230 QRSD: 94 QT: 420 QTc: 394 [place]: P: 40 ND: 230 QRS: 5 T: 25 INTERPRETIVE STATEMENTS: Sinus bradycardia with 1st degree AV block Minimal voltage criteria for LVH, may be normal variant Nonspecific T wave abnormality Abnormal ECG Compared to ECG 03/07/2021 07:50:06 First degree AV block now present Left ventricular hypertrophy now present T-wave abnormality now present Sinus rhythm no longer present Myocardial infarct finding no longer present Electronically Signed On 03-19-23 12:21:02 HOUSEHOLD APPLIANCES SERVICE TECHNICIAN by Dev Nicole
== END ==
LOC: ER 05:03
DX: J18.8 Other pneumonia, unspecified organism (principal); Z11.52 Encounter for screening for COVID-19; F17.210 Nicotine dependence, cigarettes, uncomplicated
CPT/HCPCS: 36415; 71045; 80048; 80076; 83735; 84484; 85025; 87635; 87804; 93005; 99284

== ENCOUNTER 2024-03-21 16:27 | Emergency (ER) | payer OTHER ==
--- OUTSIDE RECORDS SUMMARY | 2024-03-21 16:31 | XMS REPORT | Continuity of Care Document ---
Author Name Unknown Address [address] [facility] [address] [place] [address] [facility] thconnect Address [address] [facility] [place] [address] Care Team Providers Care Cargo Broker Name Role Phone Deny Rhodes MD Primary Care Physician [phone] Deny Rhodes MD Attending Clinician [phone] Konstantin Buck DO Attending Clinician [phone] Doctor Unassigned, [place] Attending Clinician Pretty Maddox RN Attending Clinician Tracie rafael Vitale, [facility] Attending Clinician UnaHayde Guillory PA-C Attending Clinician [phone] HAYDE GONSALVES Attending Clinician Unavailable GIN FRANCIS Attending Clinician Unavailable Nanci Ruiz Attending Clinician [phone] VASQUEZ FREDERICK Attending Clinician Unavailable Payers Payer Name Policy Type Policy Number Effective Date Expirati on Date Source Problems Condition Name Condition Details Condition Category Status Onset Date Resolution Date Last Treatment Date Treating Clinician Comments Source Other chronic pain Other chronic pain Disease Active 11-05 00:00: 00 [facility] Medication refill Medication refill Disease Active 11-05 00:00: 00 [facility] Medication refill Medication refill Disease Active 11-05 00:00: 00 [facility] Tobacco abuse Tobacco abuse Disease Active 2019-0 3-16 00:00: 00 [facility] Acute maxillary sinusitis, recurrence not specified Acute maxillary sinusitis, recurrence not specified Disease Active 2017-03 2-15 00:00: 00 [facility] Elevated ALT measuremen t Elevated ALT measuremen t Disease Active 4 00:00: 00 [facility] Elevated platelet count Elevated platelet count Disease Active 07-06 00:00: 00 [facility] Creatinine elevation Creatinine elevation Disease Active 07-06 00:00: 00 [facility] [place]atre [place] Hyper[place]atre [place] Disease Active 07-06 00:00: 00 [facility] Creatinine elevation Creatinine elevation Disease Active 07-06 00:00: 00 [facility] Hypernatre [place] Hypernatre [place] Disease Active 07-06 00:00: 00 [facility] 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 On 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 drug therapy Disease Active 04-13 00:00: 00 [facility] Psoriatic arthritis Psoriatic arthritis Disease Active 2 00:00: 00 [facility] Gastro-eso phageal reflux disease with esophagiti s Gastro-eso phageal reflux disease with esophagiti s Disease Active 2014-03 0 00:00: 00 [facility] Hyperlipid emia Hyperlipid emia Disease Active 2014-03 00:00: 00 [facility] Allergies, Adverse Reactions, Alerts Allergy Name Allergy Type Status Severity Reaction(s) Onset Date Inactive Date Treating Clinician Comments Source NO KNOWN ALLERGIE S Drug Class Active [facility] Social History Social Habit Start Date Stop Date Quantity Comments Source Sexual [facility] History of tobacco use Cigarette Smoker [facility] History of Social function 2019-10-16 00:00:00 2019-10-16 00:00:00 [facility] Exposure to SARS-CoV-2 (event) 2019-08-04 00:00:00 2019-09-03 11:00:00 Not sure [facility] Alcohol intake 2019-09-03 00:00:00 2019-09-03 00:00:00 Current non-drinker of alcohol (finding) [facility] Tobacco use and exposure 2015-10-29 00:00:00 2015-10-29 00:00:00 Smokeless tobacco non-user [facility] Cigarettes smoked current (pack per day) - Reported 2015-10-29 00:00:00 2015-10-29 00:00:00 [facility] Cigarette pack-years 2015-10-29 00:00:00 2015-10-29 00:00:00 [facility] Tobacco Comment 2015-10-29 00:00:00 2015-10-29 00:00:00 thinking about it [facility] Sex Assigned At 1970 00:00:00 1970 00:00:00 [facility] Smoking Status Start Date Stop Date Source Smokes tobacco daily 2015-10-29 00:00:00 [facility] Medications Ordered Medication Name Filled Medication Name Start Date Stop Date Current Medication? Ordering Clinician Indication Dosage Frequency Signature (SIG) Comments Components Source IBUPROFEN 800 mg tablet 2019-03 00:00: 00 Yes [id number] TAKE 1 TABLET BY MOUTH THREE TIMES A DAY WITH MEALS [facility] IBUPROFEN 800 mg tablet 2019-03 00:00: 00 Yes [id number] TAKE 1 TABLET BY MOUTH THREE TIMES A DAY WITH MEALS [facility] IBUPROFEN 800 mg tablet 12-04 00:00: 00 Yes [id number] TAKE 1 TABLET BY MOUTH THREE TIMES A DAY WITH MEALS [facility] ibuprofen (IBU) 800 mg tablet 11-11 00:00: 00 Yes [id number] 800mg Take 1 tablet by mouth 3 (three) times daily with meals. [facility] aug betamethaso ne dipropionat e 0.05 % ointment 11-11 00:00: 00 Yes [id number] Apply to area(s) daily. [facility] gabapentin 300 mg capsule 11-11 00:00: 00 Yes [id number] 300mg Take 1 capsule by mouth 3 (three) times daily. [facility] albuterol 90 mcg/actuati on inhaler 09-07 00:00: 00 Yes 2{puff} Inhale 2 Puffs every 6 (six) hours as needed for Wheezing or Shortness of Breath. [facility] GABAPENTIN 300 mg capsule 15 00:00: 11-11 00:00 :00 No [id number] TAKE 1 CAPSULE BY MOUTH THREE TIMES A DAY [facility] aug betamethaso ne dipropionat e 0.05 % ointment 08-04 00:00: 11-11 00:00 :00 No [id number] Apply to area(s) daily. [facility] GABAPENTIN 300 mg capsule 22 00:00: 08-24 00:00 :00 No [id number] TAKE 1 CAPSULE BY MOUTH THREE TIMES A DAY [facility] varenicline (CHANTIX STARTING MONTH BOX) 0.5 mg (11)- 1 mg (42) tablet 4-20 00:00: 00 Yes [id number] Take one 0.5mg tab by mouth once daily for 3 days, then one 0.5mg tab twice daily for 4 days, then one 1mg tab twice daily. [facility] GABAPENTIN 300 mg capsule 412 00:00: 07-31 00:00 :00 No [id number] TAKE 1 CAPSULE BY MOUTH THREE TIMES A DAY [facility] ibuprofen (IBU) 800 mg tablet 3-24 14:09: 14 06-02 00:00 :00 No IBU 800 mg tablet [facility] ibuprofen (IBU) 800 mg tablet 3-24 00:00: 00 11-11 00:00 :00 No [id number] 800mg Take 1 tablet by mouth 3 (three) times daily with meals. [facility] GABAPENTIN 300 mg capsule 0 3-19 00:00: 00 06-21 00:00 :00 No [id number] TAKE 1 CAPSULE BY MOUTH THREE TIMES A DAY [facility] gabapentin 300 mg capsule 0 2-24 00:00: 00 Yes [id number] TAKE 1 CAPSULE BY MOUTH THREE TIMES A DAY [facility] gabapentin 300 mg capsule 0 1-27 00:00: 00 Yes [id number] TAKE 1 CAPSULE BY MOUTH THREE TIMES A DAY [facility] esomeprazol e 40 mg capsule 03-14 00:00: 00 Yes [id number] TAKE 1 CAPSULE DAILY WITH BREAKFAST [facility] aug betamethaso ne dipropionat e 0.05 % ointment 03-14 00:00: 04-14 05:59 :00 No [id number] Apply to area(s) daily for 30 days. [facility] gabapentin 300 mg capsule 03-14 00:00: 00 04-07 00:00 :00 No [id number] TAKE 1 CAPSULE BY MOUTH THREE TIMES A DAY [facility] ibuprofen (IBU) 800 mg tablet 2018-03 15:31: 46 Yes IBU 800 mg tablet [facility] gabapentin 300 mg capsule 11-28 00:00: 00 Yes [id number] 300mg Take 1 capsule by mouth 3 (three) times daily. [facility] adalimumab (HUMIRA,CF, ) 40 mg/0.4 mL SyKt 11-05 18:17: 34 Yes inject under the skin. [facility] ibuprofen (IBU) 800 mg tablet 11-05 18:17: 34 Yes IBU 800 mg tablet [facility] aug betamethaso ne dipropionat e 0.05 % ointment 11-05 18:17: 34 Yes Apply to area(s) daily. [facility] adalimumab (HUMIRA,CF, ) 40 mg/0.4 mL SyKt 11-05 13:17: 34 Yes inject under the skin. [facility] esomeprazol e 40 mg capsule 11-05 00:00: 00 Yes [id number] TAKE 1 CAPSULE DAILY WITH BREAKFAST [facility] gabapentin 300 mg capsule 11-05 00:00: 00 11-28 00:00 :00 No [id number] 300mg Take 1 capsule by mouth 3 (three) times daily for 30 days. [facility] adalimumab (HUMIRA,CF, ) 40 mg/0.4 mL SyKt 09-19 16:14: 42 Yes inject under the skin. [facility] aug betamethaso ne dipropionat e 0.05 % ointment 09-19 16:09: 41 Yes Apply to area(s) daily. [facility] ketorolac 10 mg tablet 09-19 00:00: 00 Yes [id number] 10mg Take 1 tablet by mouth every 6 (six) hours as needed for Pain (scale 4-6). [facility] ibuprofen (IBU) 800 mg tablet 07-28 15:22: 33 Yes IBU 800 mg tablet [facility] ESOMEPRAZOL E 40 mg capsule 05-27 00:00: 00 11-05 00:00 :00 No [id number] TAKE 1 CAPSULE DAILY WITH BREAKFAST [facility] acetaminoph en-codeine 300-30 mg tablet 06-11 00:00: 00 Yes TAKE 1 TABLET BY MOUTH TWICE A DAY [facility] Vital Signs Vital Name Observation Time Observation Value Comments S ource Systolic blood pressure 2019-09-03 16:10:00 113 mm[Hg] [facility] Diastolic blood pressure 2019-09-03 16:10:00 85 mm[Hg] [facility] Heart rate 2019-09-03 16:10:00 84 /min [facility] Body temperature 2019-09-03 16:10:00 36.83 [place] [facility] Respiratory rate 2019-09-03 16:10:00 18 /min [facility] Body height 2019-09-03 16:10:00 188 cm [facility] Body weight 2019-09-03 16:10:00 111.131 kg [facility] BMI 2019-09-03 16:10:00 31.46 kg/m2 [facility] Oxygen saturation in Arterial blood by Pulse oximetry 2019-09-03 16:10:00 100 /min [facility] Systolic blood pressure 2019-09-03 16:10:00 113 mm[Hg] [facility] Diastolic blood pressure 2019-09-03 16:10:00 85 mm[Hg] [facility] Heart rate 2019-09-03 16:10:00 84 /min [facility] Body temperature 2019-09-03 16:10:00 36.83 [place] [facility] Respiratory rate 2019-09-03 16:10:00 18 /min [facility] Body height 2019-09-03 16:10:00 188 cm [facility] Body weight 2019-09-03 16:10:00 111.131 kg [facility] BMI 2019-09-03 16:10:00 31.46 kg/m2 [facility] Oxygen saturation in Arterial blood by Pulse oximetry 2019-09-03 16:10:00 100 /min [facility] Systolic blood pressure 2018-11-05 18:15:00 132 mm[Hg] [facility] Diastolic blood pressure 2018-11-05 18:15:00 80 mm[Hg] [facility] Body weight 2018-11-05 18:15:00 103.874 kg [facility] BMI 2018-11-05 18:15:00 29.40 kg/m2 [facility] Procedures Procedure Date / Time Performed Performing Clinician Source MEDICATION CORRESPONDENCE 2018-10-23 05:01:00 Do ctor Unassigned, [place] [facility] [id number] CONSENT 2018-03-14 06:01:00 Doctor Unas signed, [place] [facility] Encounters Start Date/Time End Date/Time Encounter Type Admission Type Attending Clinicians Care Facility Care Department Encounter ID Source 2020-08-22 00:00:00 2020-08-22 00:00:00 Saige Grers [facility] Office Building One .840.114 350.1.13.10 4.2.7.2.686 [id number] [facility] 2020-08-22 00:00:00 2020-08-22 00:00:00 Saige Carmelo [facility] One .840.114 350.1.13.10 4.2.7.2.686 [id number] 2020-05-27 00:00:00 2020-05-27 00:00:00 Patient Outreach Konstantin Buck [facility] [id number] 350.1.13.10 4.2.7.2.686 [id number] [facility] 2020-05-27 00:00:00 2020-05-27 00:00:00 Patient Outreach Konstantin Buck [facility] [id number] 350.1.13.10 4.2.7.2.686 [id number] 2020-03-26 00:00:00 2020-03-26 [facility] [id number] 350.1.13.10 4.2.7.2.686 [id number] [facility] 2020-03-26 00:00:00 2020-03-26 00:00:00 Refill Carmelo [facility] One [id number] 350.1.13.10 4.2.7.2.686 [id number] 2020-03-02 00:00:00 2020-03-02 00:00:00 Refill Carmelo [facility] [id number] 350.1.13.10 4.2.7.2.686 [id number] [facility] 2020-03-02 00:00:00 2020-03-02 00:00:00 Refill Carmelo [facility] 1.2.840.114 350.1.13.10 4.2.7.2.686 [id number] 2019-12-29 00:00:00 2019-12-29 00:00:00 Refill Carmelo, [facility] One [id number] 350.1.13.10 4.2.7.2.686 [id number] [facility] 2019-12-29 00:00:00 2019-12-29 00:00:00 Refill Carmelo [facility] One [id number] 350.1.13.10 4.2.7.2.686 [id number] 2019-12-05 00:00:00 2019-12-05 00:00:00 Refill Carmelo [facility] One [id number] 350.1.13.10 4.2.7.2.686 [id number] [facility] 2019-12-05 00:00:00 2019-12-05 00:00:00 Refill Carmelo [facility] One 1.2840.114 350.1.13.10 4.2.7.2.686 [id number] 2019-11-12 00:00:00 2019-11-12 00:00:00 Refill Doctor Unassigned, [place] [facility] Office Building One 1.2.840.114 350.1.13.10 4.2.7.2.686 [id number] [facility] 2019-11-12 00:00:00 2019-11-12 00:00:00 Refill Doctor Unassigned, [place] [facility] Office Building One 1.2840.114 350.1.13.10 4.2.7.2.686 [id number] 2019-09-11 00:00:00 2019-09-11 00:00:00 Patient Secure Msg Carmelo [facility] Building 1.2840.114 350.1.13.10 4.2.7.2.686 [id number] [facility] 2019-09-11 00:00:00 2019-09-11 00:00:00 Patient Secure Msg Deny Rhodes [facility] 1.2.840.114 350.1.13.10 4.2.7.2.686 [id number] 2019-09-05 00:00:00 2019-09-05 00:00:00 Patient Secure Msg Deny Rhodes [facility] 1.2.840.114 350.1.13.10 4.2.7.2.686 [id number] [id number] 2019-09-05 00:00:00 2019-09-05 00:00:00 [facility] 1.2.[facility].114 350.1.13.10 4.2.7.2.686 [id number] [facility] 2019-09-04 00:00:00 2019-09-04 00:00:00 [facility] 1.2.840.114 350.1.13.10 4.2.7.2.686 [id number] 2019-09-04 00:00:00 2019-09-04 00:00:00 [facility] 1.2.840.114 350.1.13.10 4.2.7.2.686 [id number] [facility] 2019-09-04 00:00:00 2019-09-04 00:00:00 Patient Secure Msg Doctor Unassigned, [place] [facility] 1.2.840.114 350.1.13.10 4.2.7.2.686 [id number] [facility] 2019-09-03 10:25:23 2019-09-03 10:45:23 Urgent Care Pob1, [facility] One [id number] 350.1.13.10 4.2.7.2.686 [id number] 2019-09-03 10:25:23 2019-09-03 10:45:23 Urgent Care Pob1, Acute Care Clinic Hayde Gonsalves [facility] Office Building One 1.2840.114 350.1.13.10 4.2.7.2.686 [id number] [facility] 2019-09-03 10:40:00 2019-09-03 10:40:00 Outpatient R [facility] [id number] [facility] 2019-08-24 00:00:00 2019-08-24 00:00:00 Refclari Rhodes [facility] Building One 1.2840.114 350.1.13.10 4.2.7.2.686 [id number] 2019-08-24 00:00:00 2019-08-24 00:00:00 Refill Carmelo [facility] Building One 1.2.840.114 350.1.13.10 4.2.7.2.686 [id number] [facility] 2019-08-01 00:00:00 2019-08-01 00:00:00 Refill Carmelo [facility] Building One 1.2840.114 350.1.13.10 4.2.7.2.686 [id number] [facility] 2019-08-01 00:00:00 2019-08-01 00:00:00 Refill Carmelo [facility] One 1.2840.114 350.1.13.10 4.2.7.2.686 [id number] 2019-08-01 00:00:00 2019-08-01 00:00:00 Telephone Deny Rhodes [facility] Office Building One 1.2840.114 350.1.13.10 4.2.7.2.686 [id number] [facility] 2019-08-01 00:00:00 2019-08-01 00:00:00 Telephone Deny Rhodes [facility] Office Building One 1.2840.114 350.1.13.10 4.2.7.2.686 [id number] 2019-07-29 00:00:00 2019-07-29 00:00:00 Refill Doctor Unassigned, [place] [facility] Building One 1.840.114 350.1.13.10 4.2.7.2.686 [id number] [facility] 2019-07-29 00:00:00 2019-07-29 00:00:00 Refill Doctor Unassigned, [place] [facility] Office Building One 1.2840.114 350.1.13.10 4.2.7.2.686 [id number] 2019-07-09 00:00:00 2019-07-09 00:00:00 Telephone Deny Rhodes [facility] Building 1.2840.114 350.1.13.10 4.2.7.2.686 [id number] [facility] 2019-07-09 00:00:00 2019-07-09 00:00:00 Telephone Deny Rhodes [facility] Building 1.2840.114 350.1.13.10 4.2.7.2.686 [id number] 2019-06-30 00:00:00 2019-06-30 00:00:00 Patient Secure Msg Carmelo Deny [facility] Office Building One 1.2.840.114 350.1.13.10 4.2.7.2.686 [id number] [facility] 2019-06-30 00:00:00 2019-06-30 00:00:00 Patient Secure Msg Rhodes [facility] Office Building One 1.2.840.114 350.1.13.10 4.2.7.2.686 [id number] [id number] 2019-06-22 00:00:00 2019-06-22 00:00:00 Refill Carmelo [facility] Building One 1.2.840.114 350.1.13.10 4.2.7.2.686 [id number] [facility] 2019-06-03 00:00:00 2019-06-03 00:00:00 Patient Secure Msg Rhodes [facility] Building One 1.2.840.114 350.1.13.10 4.2.7.2.686 [id number] [facility] 2019-05-29 00:00:00 2019-05-29 00:00:00 Refclari Rhodes [facility] Building One 1.2.840.114 350.1.13.10 4.2.7.2.686 [id number] [facility] 2019-05-05 00:00:00 2019-05-05 00:00:00 Refclari Rhodes [facility] Building One 1.2.840.114 350.1.13.10 4.2.7.2.686 [id number] [facility] 2019-04-07 00:00:00 2019-04-07 00:00:00 Refclari Rhodes [facility] One 1.2.840.114 350.1.13.10 4.2.7.2.686 [id number] [facility] 2019-01-05 10:30:00 2019-01-05 11:53:02 Outpatient R GIN FRANCIS [facility] [id number] [facility] 2018-11-27 00:00:00 2018-11-27 00:00:00 Refill Carmelo [facility] One 1.84.114 350.1.13.10 4.2.7.2.686 [id number] [facility] 2018-11-05 12:58:34 2018-11-05 13:31:40 Office Visit GraceAbyNanci [facility] Office Building One 1..114 350.1.13.10 4.2.7.2.686 [id number] [facility] 2018-11-04 00:00:00 2018-11-04 00:00:00 Telephone Carmelo [facility] One 1..114 350.1.13.10 4.2.7.2.686 [id number] [facility] 2018-10-29 00:00:00 2018-10-29 00:00:00 Refclari Rhodes [facility] One 1..114 350.1.13.10 4.2.7.2.686 [id number] [facility] 2018-10-23 00:00:00 2018-10-23 00:00:00 Orders Only Doctor Unassigned, [place] [facility] 1.114 350.1.13.10 4.2.7.2.686 [id number] [facility] 2018-09-19 10:28:05 2018-09-19 11:25:00 Emergency X [facility] [id number] [facility] 2018-03-14 00:00:00 2018-03-14 00:00:00 Orders Only Doctor Unassigned, [place] [facility] 1.2.840.114 350.1.13.10 4.2.7.2.686 [id number] [facility]
[2024-03-21 17:45] LABS: SARS-CoV-2 Antigen CONTROL BLUE LINE VIS/BG OK; SARS-CoV-2 Antigen Rapid Res Negative (Negative)
--- NOTE | 2024-03-21 17:55 | RAD REPORT ---
EXAMINATION: TWO VIEW CHEST XR CLINICAL INDICATION: Male, 53 years old. [facility] MAIN Congestion;Cough Bed: TECHNIQUE: 2 view radiographs of the chest were performed. COMPARISON: 09/30/2023 FINDINGS: Stable patchy bibasilar airspace opacities worse on the left, may reflect persistent atelectasis or p neumonitis. No pneumothorax or sizable effusion. The heart is normal in size. Mediastinal contours are unremarkable. IMPRESSION: Stable patchy bibasilar airspace opacities worse on the left, may reflect persistent atelectasis or p neumonitis.
--- NOTE | 2024-03-21 18:13 | ER ---
Nurse's Notes [facility] Name: Delmer Doan Age: 53 yrs Sex: Male : 1970 Arrival Date: 03/21/2024 Time: 16:27 Bed 11 Private MD: Diagnosis: Acute upper respiratory infection, unspecified Presentation: 03/21 16:49 Chief complaint: Patient states: cough, vomiting after coughing, congestion, runny nose tm6 x4-5 days. No chills, unknown fever. Taking zithromax and prednisone. Coronavirus screen: Client denies travel out of the [place] in the last 14 days. Ebola Screen: Patient negative for fever greater than or equal to 101.5 degrees Fahrenheit, and additional compatible Ebola Virus Disease symptoms Patient denies exposure to infectious person. Patient denies travel to an Ebola-affected area in the 21 days before illness onset. No symptoms or risks identified at this time. Risk Assessment: Do you want to hurt yourself or someone else? Patient reports no desire to harm self or others. Onset of symptoms was March 16, 2024. 16:49 Method Of Arrival: Ambulatory tm6 16:49 Acuity: ANITHA 4 tm6 16:49 Initial Sepsis Screen: Does the patient meet any 2 criteria? No. Patient's initial tm6 sepsis screen is negative. Does the patient have a suspected source of infection? No. Patient's initial sepsis screen is negative. Triage Assessment: 16:53 General: Appears in no apparent distress. uncomfortable, Behavior is calm, cooperative. tm6 Pain: Complains of pain in throat Pain currently is 2 out of 10 on a pain scale. EENT: Reports nasal congestion pain in throat. Neuro: Level of Consciousness is awake, alert, obeys commands, Oriented to person, place, time, situation. Cardiovascular: Patient's skin is warm and dry. Respiratory: Reports cough that is Airway is patent Respiratory effort is even, unlabored, Respiratory pattern is regular, symmetrical. GI: Abdomen is round non-distended, Reports nausea, vomiting, when coughing. : No signs and/or symptoms were reported regarding the genitourinary system. Derm: No signs and/or symptoms reported regarding the dermatologic system. Musculoskeletal: No deficits noted. No signs and/or symptoms reported regarding the musculoskeletal system. Historical: - Allergies: 16:52 No Known Allergies; tm6 - PMHx: 16:52 Arthritis; Hyperlipidemia; COVID; tm6 - PSHx: 16:52 hiatal hernia; Vasectomy; tm6 - Immunization history:: Flu vaccine is up to date. - Infectious Disease History:: Denies. - Social history:: Smoking status: Patient reports the use of cigarette tobacco products, smokes one pack cigarettes per day. Screenin:56 [facility] ED Fall Risk Assessment (Adult) History of falling in the last 3 months, jb4 including since admission No falls in past 3 months (0 pts) Confusion or Disorientation No (0 pts) Intoxicated or Sedated Impaired Gait No (0 pts) Mobility Assist Device Used No (0 pt) Altered Elimination No (0 pt) Score/Fall Risk Level 0 - 2 = Low Risk Oriented to surroundings, Maintained a safe environment. Abuse screen: Denies threats or abuse. Nutritional screening: No deficits noted. Tuberculosis screening: No symptoms or risk factors identified. Assessment: 17:56 Reassessment: Patient appears in no apparent distress at this time. Patient and/or jb4 family updated on plan of care and expected duration. Pain level reassessed. Patient is alert, oriented x 3, equal unlabored respirations, skin warm/dry/pink. 18:28 Reassessment: Patient appears in no apparent distress at this time. Patient and/or jb4 family updated on plan of care and expected duration. Pain level reassessed. Patient is alert, oriented x 3, equal unlabored respirations, skin warm/dry/pink. Vital Signs: 16:49 Pulse 62; Resp 17; Temp 98.1(O); Pulse Ox 100% on R/A; Weight 107.5 kg; Height 6 ft. 2 tm6 in. ; Pain 2/10; 16:52 BP 140 / 99; MAP 112 mmHg; tm6 16:49 Body Mass Index 30.43 (107.50 kg, 187.96 cm) tm6 16:49 Pain Scale: Adult tm6 ED Course: 16:30 Patient arrived in ED. mr 16:30 [facility]ata Martinez [facility]-C [facility]. kb 16:30 Yuri Ramon DO is Attending Physician. kb 16:50 Triage completed. tm6 16:53 Arm band placed on left wrist. tm6 17:37 Chest Pa And Lat (2 Views) XRAY In Process Unspecified. EDMS 17:56 Justo Fallon, RN is Primary Nurse. jb4 17:56 Patient has correct armband on for positive identification. Bed in low position. Call jb4 light in reach. Side rails up X 1. Provided Education on: plan of care. 17:56 No provider procedures requiring assistance completed. Patient did not have IV access jb4 during this emergency room visit. Administered Medications: No medications were administered Medication: 17:56 VIS not applicable for this client. jb4 Outcome: 18:13 Discharge ordered by . kb 18:28 Discharged to home ambulatory, jb4 18:28 Condition: stable 18:28 Discharge instructions given to patient, Instructed on discharge instructions, follow up and referral plans. Demonstrated understanding of instructions, follow-up care, 18:29 Patient left the ED. jb4 Signatures: Dispatcher [employer] EDOR Beata Martinez, CHROME TANNING DRUM OPERATOR-C CHROME TANNING DRUM OPERATOR-Ckb Mitzi Macias, Reg Reg mr Justo Fallon, RN RN jb4 Ace Martinez, JAY JAY RN tm6
--- NOTE | 2024-03-21 18:13 | EDPHYS ---
Physician Documentation [facility] Name: Delmer Doan Age: 53 yrs Sex: Male : 1970 Arrival Date: 03/21/2024 Time: 16:27 Bed 11 Private MD: ED Physician Yuri Ramon HPI: 03/21 17:06 This 53 yrs old Male presents to ER via Ambulatory with complaints of Flu Symptoms. kb 17:06 Pt is a 53 year old male who presents for cough, congestion, runny nose and kb post-tussive vomiting that started 4-5 days ago and was worse today. States he has a history of pneumonia so he came for evaluation due to concern for pna. States he was seen by PCP at the beginning of the week and was put on Zithromax and prednisone. . Historical: - Allergies: 16:52 No Known Allergies; tm6 - PMHx: 16:52 Arthritis; Hyperlipidemia; COVID; tm6 - PSHx: 16:52 hiatal hernia; Vasectomy; tm6 - Immunization history:: Flu vaccine is up to date. - Infectious Disease History:: Denies. - Social history:: Smoking status: Patient reports the use of cigarette tobacco products, smokes one pack cigarettes per day. ROS: 17:06 Constitutional: As per HPI kb Exam: 17:06 Constitutional: This is a well developed, well nourished patient who is awake, alert, kb and in no acute distress. Head/Face: Normocephalic, atraumatic. ENT: Moist Mucous membranes Cardiovascular: Regular rate Respiratory: Respirations even and unlabored. No increased work of breathing. Talking in full sentences Abdomen/GI: Soft, non-tender. No distention Skin: Warm, dry with normal turgor. Normal color. MS/ Extremity: Pulses equal, no cyanosis. Neurovascular intact. Full, normal range of motion. Neuro: Awake and alert, GCS 15, oriented to person, place, time, and situation. Vital Signs: 16:49 Pulse 62; Resp 17; Temp 98.1(O); Pulse Ox 100% on R/A; Weight 107.5 kg; Height 6 ft. 2 tm6 in. ; Pain 2/10; 16:52 BP 140 / 99; MAP 112 mmHg; tm6 16:49 Body Mass Index 30.43 (107.50 kg, 187.96 cm) tm6 16:49 Pain Scale: Adult tm6 MDM: 16:30 Medical Screening Exam initiated kb 18:12 Differential diagnosis: flu, covid, uri, pneumonia. Data reviewed: vital signs, nurses kb notes. I considered the following discharge prescriptions or medication management in the emergency department I discussed and recommended Over The Counter medications, Antibiotics: At this time antibiotics are not recommended, Antivirals: At this time, antivirals are not recommended. Counseling: I had a detailed discussion with the patient and/or guardian regarding the historical points, exam findings, and any diagnostic results supporting the discharge/admit diagnosis, lab results, radiology results, the need for outpatient follow up, a family practitioner, to return to the emergency department if symptoms worsen or persist or if there are any questions or concerns that arise at home. 03/21 16:51 Order name: Flu; Complete Time: 17:48 kb 03/21 16:51 Order name: SARS-COV-2 Antigen Rapid; Complete Time: 17:47 kb 03/21 16:51 Order name: Chest Pa And Lat (2 Views) XRAY; Complete Time: 17:57 kb Administered Medications: No medications were administered Disposition: 20:21 I was immediately available on-site in the Emergency Department for consultation in the ms3 care of the patient. Disposition Summary: 03/21/24 18:13 Discharge Ordered Notes: Location: Home kb Condition: Stable kb Diagnosis - Acute upper respiratory infection, unspecified kb Followup: kb - With: Emergency Department - When: As needed - Reason: Worsening of condition Followup: kb - With: Private Physician - When: 2 - 3 days - Reason: Recheck today's complaints, Continuance of care, Re-evaluation by your physician Discharge Instructions: - Discharge Summary Sheet kb - Upper Respiratory Infection, Adult, [id number] kb Forms: - Medication Reconciliation Form kb - Antibiotic Education kb - Prescription Opioid Use kb - Patient Portal Instructions kb - Leadership Thank You Letter kb Signatures: Dispatcher [employer] Beata Zarco, DUNCAN GUTIERREZ-Yuri Mills DO DO ms3 Ace Martinez, RN RN tm6
[2024-03-21 19:06] VITALS: TEMP 98.1; O2SAT 100
[2024-03-21 19:07] VITALS: BP 140/99
== END 2024-03-21 18:29 | disposition home or self-care (01) ==
LOC: ER 16:27
DX: J06.9 Acute upper respiratory infection, unspecified (principal); F17.210 Nicotine dependence, cigarettes, uncomplicated; Z11.52 Encounter for screening for COVID-19
CPT/HCPCS: 36415; 71046; 87804; 87811; 99282